=== PATIENT | male | born 1950 | race Caucasian/White ===

== ENCOUNTER → 2019-08-30 08:38 | Outpatient (CLI) | payer MEDICARE, BC, SELFPAY ==
--- NOTE | 2019-08-30 08:45 | NM_ITS ---
PROCEDURE: NM BONE SCAN WHOLE BODY CLINICAL INDICATION: PROSTATE TUMOR Prostate cancer COMPARISON: No exams were available for comparison TECHNIQUE: Dose: 26.9 mCi technetium MDP FINDINGS: There is normal distribution of the radiotracer throughout the skeletal system. There is slight increased activity in the proximal tibial area laterally on the left and in the lower cervical spine nonspecific. No other abnormalities are evident. IMPRESSION: No convincing evidence of metastatic disease. Dictated by: Krystian Reyes MD 09/01/2019 06:11 Electronically signed by Krystian Reyes MD in [place] 09/01/2019 06:11
--- NOTE | 2019-08-30 09:03 | HMH.ITSHM ---
Current Home Medications as stated by this patient Edwin Guzman or outbound telemarketing representative. []LISINOPRIL ATENOLOL LEVOTHYROXINE
--- NOTE | 2019-08-30 13:03 | XR_ITS ---
PROCEDURE: XR KNEE LT 3V CLINICAL INDICATION: LT KNEE HOT SPOT ON BONE SCAN COMPARISON: NM BONE SCAN WHOLE BODY from 08/30/2019 FINDINGS: No fracture or dislocation. No lytic or blastic change. There is normal mineralization. The joint spaces are well-preserved. No significant degenerative/arthritic changes. No erosive changes evident. Other findings:There is minimal cortical thickening along the proximal tibia laterally nonspecific IMPRESSION: No acute findings. Dictated by: Krystian Reyes MD 08/30/2019 16:07 Electronically signed by Krystian Reyes MD in [place] 08/30/2019 16:07
== END ==
PROVIDERS: PCP Internal Medicine Adolescent Medicine; Visit Provider Urology
DX: C61 Malignant neoplasm of prostate (principal)
CPT/HCPCS: 73562; 78306; A9503

== ENCOUNTER → 2019-09-01 14:53 | Outpatient (CLI) | payer MEDICARE, BC, SELFPAY ==
[2019-09-01 15:37] LABS: Blood Urea Nitrogen 13 mg/dL (7-18); Creatinine,Serum 1.03 mg/dL (0.70-1.30); Estimated Glomerular Filt Rate 72 ml/min (>60); GFR (African American) 87 ML/MIN (>60)
== END ==
PROVIDERS: Visit Provider Urology
DX: Z01.818 Encounter for other preprocedural examination (principal)
CPT/HCPCS: 36415; 82565; 84520

== ENCOUNTER → 2019-09-04 10:22 | Outpatient (CLI) | payer MEDICARE, BC, SELFPAY ==
--- NOTE | 2019-09-04 10:24 | CT_ITS ---
PROCEDURE: CT ABDOMEN PELVIS W CON CLINICAL INDICATION: MALIGNANT PROSTATE TUMOR Evaluate for metastatic disease COMPARISON: NM BONE SCAN WHOLE BODY from 08/30/2019 TECHNIQUE: IV Contrast: 75ML OPTIRAY 350 Oral Contrast 20ml Gastroview Axial images obtained with sagittal and coronal reformats. All CT scans at the facility use one or more dose reduction, viz: automated exposure control, ma/kV adjustment per patient size (including targeted exams where dose is matched to indication, i.e. head), or iterative reconstruction technique. FINDINGS: LOWER THORAX: No acute finding. Coronary artery calcifications are. There is mild ectasia of the ascending aorta at 4.2 cm. Abdomen and pelvis: The liver, gallbladder, spleen, adrenal glands, pancreas, and kidneys have an unremarkable appearance. There are few small retroperitoneal lymph nodes which are nonspecific. Unremarkable appendix. No intestinal obstruction or free air. No abdominal or pelvic mass. There is some minimal coarse calcification of the prostate centrally. Urinary bladder has an unremarkable appearance. There are mild degenerative changes of the spine. No bony blastic or lytic lesion evident. IMPRESSION: Essentially negative CT abdomen and pelvis. No convincing evidence of metastatic disease Dictated by: Krystian Reyes MD 09/04/2019 16:49 Electronically signed by Krystian Reyes MD in [place] 09/05/2019 09:53
== END ==
PROVIDERS: PCP Internal Medicine Adolescent Medicine; Visit Provider Urology
DX: C61 Malignant neoplasm of prostate (principal)
CPT/HCPCS: 74177; Q9967

== ENCOUNTER → 2020-07-30 10:00 | Outpatient (POV) | payer MEDICARE, BC, SELFPAY | PROVIDERS: Visit Provider Dermatology | DX: Z00.00 Encounter for general adult medical examination without abnormal findings (principal) ==

== ENCOUNTER → 2021-01-28 15:53 | Outpatient (POV) | payer MEDICARE, BC, SELFPAY | PROVIDERS: Visit Provider Dermatology | DX: Z00.00 Encounter for general adult medical examination without abnormal findings (principal) ==

== ENCOUNTER → 2021-06-06 10:09 | Outpatient (CLI) | payer MEDICARE, BC, SELFPAY ==
[2021-06-06 11:34] LABS: Chloride 102 mmol/L (98-107); Sodium 142 mmol/L (136-145)
[2021-06-06 11:35] LABS: Potassium 5.3 mmoL/L (3.5-5.1)
[2021-06-06 11:37] LABS: Alanine Aminotransferase 18 U/L (12-78); Albumin Level 4.4 g/dl (3.5-5.0); Albumin/Globulin Ratio 1.4 (1.1-1.8); Alkaline Phosphatase 93 U/L (38-126); Anion Gap 16.3 mEq/L (5-15); Aspartate Amino Transferase 26 U/L (17-59); Bilirubin,Total 0.5 mg/dl (0.2-1.3); Blood Urea Nitrogen 12 mg/dl (9-20); Carbon Dioxide 29 mmol/L (22.0-30.0); Cholesterol 169 mg/dl (140-200); Estimated Glomerular Filt Rate 95 ml/min (>60); GFR (African American) 115 ML/MIN (>60); Globulin 3.2 g/dL (1.3-3.2); Total Protein,Serum 7.6 g/dl (6.3-8.2); Triglycerides 236 mg/dl (30-150); VLDL Cholesterol 47 mg/dL (0-40)
[2021-06-06 11:38] LABS: Calcium 9.5 mg/dl (8.4-10.2); Chol/HDL Ratio 6.5 (1-3.5); Glucose 110 mg/dl (74-100); HDL Cholesterol 26 mg/dl (40-60)
[2021-06-06 11:40] LABS: Basophils # 0.1 K/mm3 (0-0.2); Basophils % 0.8 % (0.1-2.0); Eosinophils # 0.1 K/mm3 (0.0-0.4); Eosinophils % 1.8 % (0.1-12.0); Hematocrit 43.7 % (42.0-52.0); Hemoglobin 14.6 g/dL (14.1-18.0); Lymphocytes # 1.6 K/mm3 (0.7-4.5); Lymphocytes % 21.8 % (10-50); Mean Corpuscular HGB Conc 33.3 g/dL (31.8-35.4); Mean Corpuscular Hemoglobin 31.7 pg (27.0-31.2); Mean Corpuscular Volume 95.1 fl (80-94); Mean Platelet Volume 8.1 fl (7.4-10.4); Monocytes # 0.5 K/mm3 (0.1-1.0); Neutrophils # 4.9 K/mm3 (1.8-7.8); Neutrophils % 68.7 % (37.0-80.0); Platelet Count 258 K/mm3 (142-424); Red Blood Count 4.59 M/mm3 (4.60-6.20); White Blood Count 7.2 K/mm3 (4.8-10.8)
[2021-06-06 11:50] LABS: Direct LDL Cholesterol 100.95 mg/dL (100-129)
[2021-06-06 12:08] LABS: Thyroid Stimulating Hormone 3.11 uIU/mL (0.465-4.68)
== END ==
PROVIDERS: Visit Provider Internal Medicine Adolescent Medicine
DX: I10 Essential (primary) hypertension (principal); E78.5 Hyperlipidemia, unspecified; E03.9 Hypothyroidism, unspecified
CPT/HCPCS: 36415; 80053; 80061; 84443; 85025

== ENCOUNTER → 2023-07-09 07:02 | Outpatient (CLI) | payer MEDICARE, BC, SELFPAY ==
[2023-07-09 08:21] LABS: Chloride 106 mmol/L (98-107); Potassium 4.3 mmoL/L (3.5-5.1); Sodium 139 mmol/L (136-145)
[2023-07-09 08:23] LABS: Bilirubin,Unconjugated 0.3 mg/dL (0.0-1.1); Blood Urea Nitrogen 15 mg/dl (9-20); Estimated Glomerular Filt Rate 95 ml/min (>60); GFR (African American) 115 ML/MIN (>60)
[2023-07-09 08:24] LABS: Alanine Aminotransferase 40 U/L (12-78); Albumin Level 4.1 g/dl (3.5-5.0); Alkaline Phosphatase 69 U/L (38-126); Anion Gap 11.3 mEq/L (5-15); Aspartate Amino Transferase 42 U/L (17-59); Bilirubin,Direct 0.1 mg/dl (0.0-0.4); Bilirubin,Indirect 0.4 mg/dL (0.0-0.9); Bilirubin,Total 0.5 mg/dl (0.2-1.3); Calcium 8.8 mg/dl (8.4-10.2); Carbon Dioxide 26 mmol/L (22.0-30.0); Chol/HDL Ratio 6.2 (1-3.5); Cholesterol 173 mg/dl (140-200); Glucose 107 mg/dl (74-100); HDL Cholesterol 28 mg/dl (40-60); Total Protein,Serum 6.9 g/dl (6.3-8.2); Triglycerides 173 mg/dl (30-150); VLDL Cholesterol 35 mg/dL (0-40)
[2023-07-09 08:35] LABS: Direct LDL Cholesterol 103.97 mg/dL (100-129)
[2023-07-09 08:55] LABS: Basophils # 0.1 K/mm3 (0-0.2); Basophils % 1.9 % (0.1-2.0); Eosinophils # 0.3 K/mm3 (0.0-0.4); Eosinophils % 4.8 % (0.1-12.0); Hematocrit 41.5 % (42.0-52.0); Hemoglobin 14.2 g/dL (14.1-18.0); Lymphocytes % 36.7 % (10-50); Mean Corpuscular HGB Conc 34.1 g/dL (31.8-35.4); Mean Corpuscular Hemoglobin 34.3 pg (27.0-31.2); Mean Corpuscular Volume 100.6 fl (80-94); Mean Platelet Volume 9.1 fl (7.4-10.4); Monocytes # 0.3 K/mm3 (0.1-1.0); Monocytes % 6.3 % (1.7-9.3); Neutrophils # 2.7 K/mm3 (1.8-7.8); Neutrophils % 50.2 % (37.0-80.0); Platelet Count 220 K/mm3 (142-424); Red Blood Count 4.13 M/mm3 (4.60-6.20); White Blood Count 5.4 K/mm3 (4.8-10.8)
== END ==
PROVIDERS: PCP Internal Medicine Adolescent Medicine; Visit Provider Internal Medicine Interventional Cardiology
DX: E78.00 Pure hypercholesterolemia, unspecified (principal); I10 Essential (primary) hypertension
CPT/HCPCS: 36415; 80048; 80061; 80076; 85025

== ENCOUNTER → 2023-08-10 08:19 | Outpatient (CLI) | payer MEDICARE, BC, SELFPAY ==
[2023-08-10 09:10] LABS: Basophils # 0.1 K/mm3 (0-0.2); Basophils % 0.9 % (0.1-2.0); Eosinophils # 0.2 K/mm3 (0.0-0.4); Eosinophils % 2.9 % (0.1-12.0); Hematocrit 43.8 % (42.0-52.0); Hemoglobin 15.1 g/dL (14.1-18.0); Lymphocytes # 2.3 K/mm3 (0.7-4.5); Lymphocytes % 30.6 % (10-50); Mean Corpuscular HGB Conc 34.5 g/dL (31.8-35.4); Mean Corpuscular Hemoglobin 32.3 pg (27.0-31.2); Mean Corpuscular Volume 93.6 fl (80-94); Mean Platelet Volume 8.4 fl (7.4-10.4); Monocytes # 0.4 K/mm3 (0.1-1.0); Monocytes % 5.6 % (1.7-9.3); Neutrophils # 4.5 K/mm3 (1.8-7.8); Platelet Count 292 K/mm3 (142-424); Red Blood Count 4.68 M/mm3 (4.60-6.20); White Blood Count 7.4 K/mm3 (4.8-10.8)
[2023-08-10 09:54] LABS: Alanine Aminotransferase 33 U/L (12-78); Alkaline Phosphatase 84 U/L (38-126); Aspartate Amino Transferase 32 U/L (17-59); Bilirubin,Direct 0.1 mg/dl (0.0-0.4); Bilirubin,Indirect 0.4 mg/dL (0.0-0.9); Bilirubin,Total 0.5 mg/dl (0.2-1.3); Bilirubin,Unconjugated 0.4 mg/dL (0.0-1.1); Blood Urea Nitrogen 11 mg/dl (9-20); Calcium 8.9 mg/dl (8.4-10.2); Carbon Dioxide 29 mmol/L (22.0-30.0); Chloride 101 mmol/L (98-107); Chol/HDL Ratio 6.8 (1-3.5); Cholesterol 189 mg/dl (140-200); Estimated Glomerular Filt Rate 83 ml/min (>60); GFR (African American) 100 ML/MIN (>60); Glucose 107 mg/dl (74-100); HDL Cholesterol 28 mg/dl (40-60); Triglycerides 293 mg/dl (30-150); VLDL Cholesterol 59 mg/dL (0-40)
[2023-08-10 10:05] LABS: Direct LDL Cholesterol 112.95 mg/dL (100-129)
[2023-08-10 10:25] LABS: Sodium 136 mmol/L (136-145); Total Protein,Serum 7.1 g/dl (6.3-8.2)
== END ==
PROVIDERS: PCP Internal Medicine Adolescent Medicine; Visit Provider Internal Medicine Interventional Cardiology
DX: E78.00 Pure hypercholesterolemia, unspecified (principal)
CPT/HCPCS: 36415; 80048; 80061; 80076; 85025

== ENCOUNTER 2023-12-15 07:23 | Outpatient (CLI) | payer MEDICARE, BC, SELFPAY ==
[2023-12-15 07:53] LABS: Basophils # 0.1 K/mm3 (0-0.2); Basophils % 1.4 % (0.1-2.0); Eosinophils # 0.2 K/mm3 (0.0-0.4); Eosinophils % 2.6 % (0.1-12.0); Hemoglobin 14.4 g/dL (14.1-18.0); Lymphocytes # 2.5 K/mm3 (0.7-4.5); Mean Corpuscular HGB Conc 33.6 g/dL (31.8-35.4); Mean Corpuscular Hemoglobin 32.3 pg (27.0-31.2); Mean Corpuscular Volume 96.2 fl (80-94); Mean Platelet Volume 8.7 fl (7.4-10.4); Monocytes # 0.5 K/mm3 (0.1-1.0); Monocytes % 6.8 % (1.7-9.3); Neutrophils % 55.1 % (37.0-80.0); Platelet Count 230 K/mm3 (142-424); Red Blood Count 4.47 M/mm3 (4.60-6.20); Red Cell Distribution Width 13.8 % (11.5-17.5); White Blood Count 7.3 K/mm3 (4.8-10.8)
[2023-12-15 08:35] LABS: Chloride 109 mmol/L (98-107); Sodium 140 mmol/L (136-145)
[2023-12-15 08:37] LABS: Alanine Aminotransferase 36 U/L (12-78); Aspartate Amino Transferase 50 U/L (17-59); Bilirubin,Unconjugated 0.4 mg/dL (0.0-1.1); Blood Urea Nitrogen 11 mg/dl (9-20); Carbon Dioxide 25 mmol/L (22.0-30.0); Estimated Glomerular Filt Rate 110 ml/min (>60); GFR (African American) 133 ML/MIN (>60)
[2023-12-15 08:38] LABS: Albumin Level 4.1 g/dl (3.5-5.0); Alkaline Phosphatase 40 U/L (38-126); Bilirubin,Direct 0.5 mg/dl (0.0-0.4); Bilirubin,Indirect 0.5 mg/dL (0.0-0.9); Calcium 8.8 mg/dl (8.4-10.2); Cholesterol 91 mg/dl (140-200); Glucose 110 mg/dl (74-100); HDL Cholesterol 23 mg/dl (40-60); Total Protein,Serum 7.1 g/dl (6.3-8.2); Triglycerides 133 mg/dl (30-150); VLDL Cholesterol 27 mg/dL (0-40)
== END 2023-12-15 23:59 ==
LOC: LAB 07:24
PROVIDERS: PCP Internal Medicine Adolescent Medicine; Visit Provider Internal Medicine Interventional Cardiology
DX: I10 Essential (primary) hypertension (principal); E78.00 Pure hypercholesterolemia, unspecified
CPT/HCPCS: 36415; 80048; 80061; 80076; 85025

== ENCOUNTER 2023-12-31 19:26 | Observation (INO) | payer MEDICARE, BC, SELFPAY ==
[2023-12-31] VITALS (8 sets, daily range): BP systolic 135–188; BP diastolic 74–101; PULSE 47–71; RESP 16–20; TEMP 36.6–36.7; O2SAT 92–97; BMI 30.7
--- NOTE | 2023-12-31 19:27 | ECG_ITS ---
APPROVED REPORT Exam: Resting ECG HR:73 bpm ECG Measurements Heart Rate 73 AXES MS 193 P 1 QRSd 97 QRS -48 QT 385 T 13 QTc 411 Conclusion SINUS RHYTHM INCOMPLETE RIGHT BUNDLE BRANCH BLOCK [90+ ms QRS DURATION, TERMINAL R IN V1/V2, 40+ ms S IN I/aVL/V4/V5/V6] LEFT ANTERIOR FASCICULAR BLOCK [QRS AXIS <= -45, QR IN I, RS IN II] MODERATE VOLTAGE CRITERIA FOR LVH, CONSIDER NORMAL VARIANT [MEETS CRITERIA IN ONE OF: R(aVL), S(V1), R(V5), R(V5/V6)+S(V1)] NONSPECIFIC ST CHANGES ABNORMAL ECG Electronically signed by : RAQUEL KIRKLAND, 12/31/2023 20:48:12
--- NOTE | 2023-12-31 19:37 | XR_ITS ---
PROCEDURE INFORMATION: Exam: XR Chest Exam date and time: 12/31/2023 7:45 PM Age: 73 years old Clinical indication: Pain; Chest pressure; Additional info: Cp midline TECHNIQUE: Imaging protocol: Radiologic exam of the chest. Views: 1 view. COMPARISON: NM BONE SCAN WHOLE BODY 08/30/2019 1:31 PM FINDINGS: Lungs: Normal. Pleural spaces: Normal. No pleural effusion. No pneumothorax. Heart/Mediastinum: Normal. No cardiomegaly. Vasculature: Tortuous atherosclerotic thoracic aorta. Bones/joints: Unremarkable. IMPRESSION: No acute findings.
--- NOTE | 2023-12-31 19:38 | HMH.EDCP ---
Discharge Plan Disposition Patient Disposition: Home, Self-Care Clinical Impressions Clinical Impression: Chest pain, Non-ST elevation TX (NSTEMI) Discharge ED Provider: Nito Martinez HPI <Nito Martinez MD - Last Filed: 01/01/24 00:26> General Chief Complaint: Chest Pain Stated Complaint: CP Time Seen by Provider: 12/31/23 19:27 History of Present Illness HPI narrative: Patient is 73-year-old male past medical history of coronary artery disease, no cardiac stents, hypertension on atenolol and lisinopril who presents emergency department for evaluation of chest pain. Earlier this evening around 6 PM patient was in his backyard picking up sticks approximately 300-400 feet of ambulatory exertion when on his way back to the house and in the house he experienced substernal chest pain. No reports of it radiating or other acute complaints at this time. The chest pain was transient and has resolved prior to arrival however he presents here for continued evaluation given his cardiac history. Related Data Home Medications Medication Instructions Recorded Confirmed atenolol 50 mg tablet 25 mg PO DAILY htn 06/04/19 06/26/19 levothyroxine 100 mcg tablet 100 mg PO DAILY thyroid 06/04/19 06/26/19 lisinopril 10 mg tablet 10 mg PO DAILY htn 06/04/19 06/26/19 Allergies Allergy/AdvReac Type Severity Reaction Status Date / Time No Known Allergies Allergy Verified 06/26/19 10:14 PFS <Nito Martinez MD - Last Filed: 01/01/24 00:26> [facility] Disclaimer: The information contained in this section may have been updated after the patient was seen, as this information can be updated by other users. Social History Smoking Status: Unknown if ever smoked second hand exposure: No alcohol intake: never current occupational status: other Travel in the last 8 weeks: None household members: spouse housing: house current occupational exposures/hazards: No caffeine: No <Nito Martinez MD - Last Filed: 01/01/24 00:26> ROS Obtained: Yes Systems reviewed as appropriate & no additional complaints except as documented Physical Exam <Nito Martinez MD - Last Filed: 01/01/24 00:26> General General appearance: alert and in no apparent distress Head Head exam: atraumatic and normocephalic Eye Eye exam: Present PERRL ENT ENT exam: Present mucous membranes moist Neck Neck exam: Present normal inspection Chest Chest inspection: Present normal inspection and symmetric chest wall rise Respiratory Respiratory exam: Present normal lung sounds bilaterally; Absent respiratory distress Cardiovascular Cardiovascular exam: Present regular rate and normal rhythm Abdominal Exam Abdominal exam: Present soft; Absent tenderness Extremities Exam Extremities exam: Present normal inspection Neurological Exam Neurological exam: Present alert Psychiatric Psychiatric exam: Present normal affect Skin Skin exam: Present warm and dry HEART Score <Nito Martinez MD - Last Filed: 01/01/24 00:26> HEART Score HEART Score assessment performed?: Yes History (anamnesis): Moderately suspicious ECG: Normal Age: >65 years Risk factors: 1-2 risk factors Troponin: </= normal limit HEART Score: 4 <Amos Murray MD - Last Filed: 01/01/24 00:12> HEART Score HEART Score: 4 Critical Care <Nito Martinez MD - Last Filed: 01/01/24 00:26> Critical Care Time Critical Care Time: Yes Attestation: On 12/31/23, the high probability of a clinically significant, sudden or life threatening deterioration of the following system(s) required my full and direct attention, intervention and personal management. The time I documented below is in addition to time spent performing reported procedures but includes the following listed in this critical care notation. Total Time Total Critical Care Time: 35 Medical Decision Making <Nito Martinez MD - Last Filed: 01/01/24 00:26> [facility] Inquiry Pt receiving controlled substance: No Vital Signs Vital Signs: 12/31/23 19:31 12/31/23 20:01 12/31/23 21:20 Temperature 98.0 F Temperature Source Oral Pulse Rate 47 L 62 Pulse Rate [Right Brachial] 71 Respiratory Rate 16 Blood Pressure 150/74 H 140/81 Blood Pressure [Right Arm] 188/91 H Blood Pressure Mean 110 Blood Pressure Mean [Right Arm] 123 Blood Pressure Source [Right Arm] Automatic Cuff Blood Pressure Position [Right Arm] Sitting 02 Sat by Pulse Oximetry 97 97 95 Oxygen Delivery Method Room Air 12/31/23 21:30 12/31/23 22:00 12/31/23 22:30 Temperature Temperature Source Pulse Rate 58 L 59 L 59 L Pulse Rate [Right Brachial] Respiratory Rate Blood Pressure 135/83 160/92 H 142/84 H Blood Pressure [Right Arm] Blood Pressure Mean 100 114 103 Blood Pressure Mean [Right Arm] Blood Pressure Source [Right Arm] Blood Pressure Position [Right Arm] 02 Sat by Pulse Oximetry 94 L 96 97 Oxygen Delivery Method 12/31/23 23:00 12/31/23 23:47 Temperature 98 F Temperature Source Pulse Rate 57 L 64 Pulse Rate [Right Brachial] Respiratory Rate 20 Blood Pressure 154/87 H 166/101 H Blood Pressure [Right Arm] Blood Pressure Mean 109 Blood Pressure Mean [Right Arm] Blood Pressure Source [Right Arm] Blood Pressure Position [Right Arm] 02 Sat by Pulse Oximetry 95 Oxygen Delivery Method Room Air Lab Data Labs: Lab Results 12/31/23 19:48: WBC 7.4, RBC 4.37 L, Hgb 13.7 L, Hct 41.0 L, MCV 94.0, MCH 31.4 H, MCHC 33.4, RDW 13.5, Plt Count 227, MPV 8.9, Neut % (Auto) 51.0, Lymph % (Auto) 38.4, [place] % (Auto) 6.2, Eos % (Auto) 3.0, Baso % (Auto) 1.3, Neut # (Auto) 3.8, Lymph # (Auto) 2.9, [place] # (Auto) 0.5, Eos # (Auto) 0.2, Baso # (Auto) 0.1, Sodium 139, Potassium 3.5, Chloride 105, Carbon Dioxide 30, Anion Gap 7.5, BUN 10, Creatinine 0.90, Estimated Creat Clear 91, Estimated GFR 82, Est GFR ( Amer) 100, Glucose 141 H, Hemoglobin A1c 6.2 H, Calcium 9.1, Total Bilirubin 0.6, AST 35, ALT 27, Alkaline Phosphatase 77, Troponin I < 0.01, Total Protein 7.0, Albumin 4.0, Globulin 3.0, Albumin/Globulin Ratio 1.3, Free T4 1.13 12/31/23 22:45: Troponin I 0.38 H 12/31/23 19:48 12/31/23 19:48 Response Orders (Tests/Meds): ED MEDICATIONS Generic Name Dose Route Start Last Admin Trade Name Freq PRN Reason Stop Dose Admin Acetaminophen 650 mg 12/31/23 23:38 Acetaminophen 325mg Tab PO 01/30/24 23:37 Q4HP PRN Fever or Mild Pain (1-3) Aspirin 81 mg 01/01/24 09:00 Aspirin Ec 81mg Tablet PO 01/31/24 08:59 DAILY [facility], [facility] Clopidogrel Bisulfate 75 mg 01/01/24 09:00 Clopidogrel 300mg Tablet PO 01/31/24 08:59 DAILY [facility], [facility]1983 Enoxaparin Sodium 40 mg 01/01/24 09:00 Enoxaparin 40mg/0.4ml Syringe SQ 01/31/24 08:59 DAILY [facility], [facility]1983 Ondansetron HCl 4 mg 12/31/23 23:38 Ondansetron 4mg/2ml Vial IV 01/30/24 23:37 Q8HP PRN Nausea Discontinued Medications Generic Name Dose Route Start Last Admin Trade Name Freq PRN Reason Stop Dose Admin Aspirin 324 mg 12/31/23 19:37 12/31/23 19:52 Aspirin 81mg Chewable Tablet PO 12/31/23 19:38 Not Given ONCE ONE Aspirin 243 mg 12/31/23 19:51 12/31/23 19:53 Aspirin 81mg Chewable Tablet PO 12/31/23 19:52 243 mg ONCE ONE Administration Clopidogrel Bisulfate 300 mg 12/31/23 23:30 Clopidogrel 300mg Tablet PO 12/31/23 23:31 ONCE ONE ORDERS Category Date Time Status CXR --portable [XR chest portable] Stat Exams 12/31/23 19:37 Completed Basic Metabolic Panel AMLAB Lab 01/01/24 06:00 Ordered CBC w/Auto Diff [Complete Blood Count Auto Diff] Stat Lab 12/31/23 19:48 Completed CMP [Comprehensive Metabolic Panel] Stat Lab 12/31/23 19:48 Completed Complete Blood Count Auto Diff AMLAB Lab 01/01/24 06:00 Ordered Free T4 (Free Thyroxine) Routine Lab 12/31/23 19:48 Completed Hemoglobin A1C Timed Lab 12/31/23 19:48 Completed Lipid Panel [facility] Lab 01/01/24 06:00 Ordered Magnesium [facility] Lab 01/01/24 06:00 Ordered Thyroid Stimulating Hormone Routine Lab 12/31/23 19:48 Received Trop I [Troponin I] Stat Lab 12/31/23 19:48 Completed Troponin I Q3H Lab 12/31/23 22:45 Completed Troponin I Q3H Lab 01/01/24 01:45 Ordered CA echo doppler complete Routine Y 12/31/23 23:41 Ordered ECG Request Q3H Y 12/31/23 23:45 Ordered ECG Request Q3H Y 01/01/24 02:45 Ordered ECG Data Tracing #1: ECG Narrative: Independently interpreted by me, rate 73, rhythm is regular, axis is leftward deviated, no ST elevation in anatomical contiguous leads, QTc 411. Tracing #2: ECG Narrative: Independently interpreted by me, rate 64, rhythm is regular, axis is leftward deviated, T wave inversions in the Anterolateral leads, these are dynamic from previous EKG. MDM Narrative Medical Decision Narrative: In summary patient is a 73-year-old male with past medical history described above who presents emergency department for evaluation of exertional chest pain. Patient is hemodynamically stable nontoxic-appearing upon arrival, afebrile, no current chest pain. Differential includes exertional angina, ACS, among others. Workup will be conducted with hematologic labs, chest x-ray, EKG, serial troponins. Initial inventions include aspirin. Workup reviewed by me, hematologic labs are nonactionable, initial troponin undetectably low. Per repeat evaluation patient continued to be well-appearing. Serial troponin has significant delta, troponin 0.38. Repeat EKG shows dynamic T wave inversions in the anterolateral leads. Patient is not in significant chest pain at this time. The case was discussed with Dr. Hutson regarding management who recommends serial troponins, administration of Plavix and patient will undergo left heart cath in the morning. It is okay for the patient to eat breakfast. The case was discussed with hospital medicine regarding management and patient will be admitted to their service for continued evaluation at this time. <Amos Murray MD - Last Filed: 01/01/24 00:12> Vital Signs Vital Signs: 12/31/23 19:31 12/31/23 20:01 12/31/23 21:20 Temperature 98.0 F Temperature Source Oral Pulse Rate 47 L 62 Pulse Rate [Right Brachial] 71 Respiratory Rate 16 Blood Pressure 150/74 H 140/81 Blood Pressure [Right Arm] 188/91 H Blood Pressure Mean 110 Blood Pressure Mean [Right Arm] 123 Blood Pressure Source [Right Arm] Automatic Cuff Blood Pressure Position [Right Arm] Sitting 02 Sat by Pulse Oximetry 97 97 95 Oxygen Delivery Method Room Air 12/31/23 21:30 12/31/23 22:00 12/31/23 22:30 Temperature Temperature Source Pulse Rate 58 L 59 L 59 L Pulse Rate [Right Brachial] Respiratory Rate Blood Pressure 135/83 160/92 H 142/84 H Blood Pressure [Right Arm] Blood Pressure Mean 100 114 103 Blood Pressure Mean [Right Arm] Blood Pressure Source [Right Arm] Blood Pressure Position [Right Arm] 02 Sat by Pulse Oximetry 94 L 96 97 Oxygen Delivery Method 12/31/23 23:00 12/31/23 23:47 Temperature 98 F Temperature Source Pulse Rate 57 L 64 Pulse Rate [Right Brachial] Respiratory Rate 20 Blood Pressure 154/87 H 166/101 H Blood Pressure [Right Arm] Blood Pressure Mean 109 Blood Pressure Mean [Right Arm] Blood Pressure Source [Right Arm] Blood Pressure Position [Right Arm] 02 Sat by Pulse Oximetry 95 Oxygen Delivery Method Room Air Lab Data Labs: Lab Results 12/31/23 19:48: WBC 7.4, RBC 4.37 L, Hgb 13.7 L, Hct 41.0 L, MCV 94.0, MCH 31.4 H, MCHC 33.4, RDW 13.5, Plt Count 227, MPV 8.9, Neut % (Auto) 51.0, Lymph % (Auto) 38.4, [place] % (Auto) 6.2, Eos % (Auto) 3.0, Baso % (Auto) 1.3, Neut # (Auto) 3.8, Lymph # (Auto) 2.9, [place] # (Auto) 0.5, Eos # (Auto) 0.2, Baso # (Auto) 0.1, Sodium 139, Potassium 3.5, Chloride 105, Carbon Dioxide 30, Anion Gap 7.5, BUN 10, Creatinine 0.90, Estimated Creat Clear 91, Estimated GFR 82, Est GFR ( Amer) 100, Glucose 141 H, Hemoglobin A1c 6.2 H, Calcium 9.1, Total Bilirubin 0.6, AST 35, ALT 27, Alkaline Phosphatase 77, Troponin I < 0.01, Total Protein 7.0, Albumin 4.0, Globulin 3.0, Albumin/Globulin Ratio 1.3, Free T4 1.13 12/31/23 22:45: Troponin I 0.38 H Response Orders (Tests/Meds): ED MEDICATIONS Generic Name Dose Route Start Last Admin Trade Name Freq PRN Reason Stop Dose Admin Acetaminophen 650 mg 12/31/23 23:38 Acetaminophen 325mg Tab PO 01/30/24 23:37 Q4HP PRN Fever or Mild Pain (1-3) Aspirin 81 mg 01/01/24 09:00 Aspirin Ec 81mg Tablet PO 01/31/24 08:59 DAILY FOR[facility], [facility]1983 Clopidogrel Bisulfate 75 mg 01/01/24 09:00 Clopidogrel 300mg Tablet PO 01/31/24 08:59 DAILY [facility], [facility]1983 Enoxaparin Sodium 40 mg 01/01/24 09:00 Enoxaparin 40mg/0.4ml Syringe SQ 01/31/24 08:59 DAILY [facility], [facility]1983 Ondansetron HCl 4 mg 12/31/23 23:38 Ondansetron 4mg/2ml Vial IV 01/30/24 23:37 Q8HP PRN Nausea Discontinued Medications Generic Name Dose Route Start Last Admin Trade Name Freq PRN Reason Stop Dose Admin Aspirin 324 mg 12/31/23 19:37 12/31/23 19:52 Aspirin 81mg Chewable Tablet PO 12/31/23 19:38 Not Given ONCE ONE Aspirin 243 mg 12/31/23 19:51 12/31/23 19:53 Aspirin 81mg Chewable Tablet PO 12/31/23 19:52 243 mg ONCE ONE Administration Clopidogrel Bisulfate 300 mg 12/31/23 23:30 Clopidogrel 300mg Tablet PO 12/31/23 23:31 ONCE ONE ORDERS Category Date Time Status CXR --portable [XR chest portable] Stat Exams 12/31/23 19:37 Completed Basic Metabolic Panel [facility] Lab 01/01/24 06:00 Ordered CBC w/Auto Diff [Complete Blood Count Auto Diff] Stat Lab 12/31/23 19:48 Completed CMP [Comprehensive Metabolic Panel] Stat Lab 12/31/23 19:48 Completed Complete Blood Count Auto Diff AMLAB Lab 01/01/24 06:00 Ordered Free T4 (Free Thyroxine) Routine Lab 12/31/23 19:48 Completed Hemoglobin A1C Timed Lab 12/31/23 19:48 Completed Lipid Panel [facility]AB Lab 01/01/24 06:00 Ordered Magnesium AMLAB Lab 01/01/24 06:00 Ordered Thyroid Stimulating Hormone Routine Lab 12/31/23 19:48 Received Trop I [Troponin I] Stat Lab 12/31/23 19:48 Completed Troponin I Q3H Lab 12/31/23 22:45 Completed Troponin I Q3H Lab 04/13/24 01:45 Ordered CA echo doppler complete Routine Y 12/31/23 23:41 Ordered ECG Request Q3H Y 12/31/23 23:45 Ordered ECG Request Q3H Y 01/01/24 02:45 Ordered
[2023-12-31] MEDS: ASPIRIN 81MG CHEWABLE TABLET 243 MG PO (19:53)
[2023-12-31 19:57] LABS: Basophils # 0.1 K/mm3 (0-0.2); Basophils % 1.3 % (0.1-2.0); Eosinophils # 0.2 K/mm3 (0.0-0.4); Hemoglobin 13.7 g/dL (14.1-18.0); Lymphocytes # 2.9 K/mm3 (0.7-4.5); Lymphocytes % 38.4 % (10-50); Mean Corpuscular HGB Conc 33.4 g/dL (31.8-35.4); Mean Corpuscular Hemoglobin 31.4 pg (27.0-31.2); Mean Platelet Volume 8.9 fl (7.4-10.4); Monocytes # 0.5 K/mm3 (0.1-1.0); Monocytes % 6.2 % (1.7-9.3); Neutrophils # 3.8 K/mm3 (1.8-7.8); Platelet Count 227 K/mm3 (142-424); Red Blood Count 4.37 M/mm3 (4.60-6.20); Red Cell Distribution Width 13.5 % (11.5-17.5); White Blood Count 7.4 K/mm3 (4.8-10.8)
[2023-12-31 20:07] LABS: Chloride 105 mmol/L (98-107); Potassium 3.5 mmoL/L (3.5-5.1); Sodium 139 mmol/L (136-145)
[2023-12-31 20:10] LABS: Alanine Aminotransferase 27 U/L (12-78); Albumin/Globulin Ratio 1.3 (1.1-1.8); Alkaline Phosphatase 77 U/L (38-126); Anion Gap 7.5 mEq/L (5-15); Aspartate Amino Transferase 35 U/L (17-59); Bilirubin,Total 0.6 mg/dl (0.2-1.3); Blood Urea Nitrogen 10 mg/dl (9-20); Calcium 9.1 mg/dl (8.4-10.2); Carbon Dioxide 30 mmol/L (22.0-30.0); Creatinine Clearance Estimated 91 mL/min (50-200); Estimated Glomerular Filt Rate 82 ml/min (>60); GFR (African American) 100 ML/MIN (>60); Glucose 141 mg/dl (74-100)
[2023-12-31 20:36] LABS: Troponin I < 0.01 ng/ml (0.00-0.034)
[2023-12-31 23:17] LABS: Troponin I 0.38 ng/ml (0.00-0.034)
--- NOTE | 2023-12-31 23:26 | PC.NURSE ---
Dr Hutson paged
--- NOTE | 2023-12-31 23:28 | PC.NURSE ---
Dr. Hutson on phone with Dr. Martinez
--- NOTE | 2023-12-31 23:47 | PC.NURSE ---
report called to [facility]
--- NOTE | 2023-12-31 23:54 | PC.NURSE ---
pt arrived to floor via wheelchair @23:52
[2023-12-31 23:57] LABS: Hemoglobin A1C 6.2 % (4.0-6.0)
[2024-01-01] VITALS: BP 159/85; PULSE 62; RESP 16; TEMP 36.6; O2SAT 98
[2024-01-01 00:16] LABS: Free T4 (Free Thyroxine) 1.13 ng/dl (0.78-2.19)
[2024-01-01 00:31] LABS: Thyroid Stimulating Hormone 1.77 uIU/mL (0.465-4.68)
[2024-01-01] MEDS: CLOPIDOGREL 300MG TABLET 300 MG PO (00:40)
[2024-01-01 00:53] VITALS: BMI 31.2
--- NOTE | 2024-01-01 01:01 | EXP.HP ---
History of Present Illness *Admission Date: 12/31/23 *Reason for visit:: Chest pain *History of present illness: This is a 73-year-old male with a past medical history of CAD, hypertension and hypothyroidism who presents to the emergency for complaints of chest pain.? He was exerting self around 6 PM picking up sticks from the backyard for which she was ambulatory approximately 400 feet.? On his way back to his home he developed sudden substernal chest pain.? He denies any radiation to the pain.? Denies any diaphoresis or nausea.? The chest pain was transient in nature and was resolved at the time of arrival to the emergency department. OF note, patient has known vessel disease with 100% occlusion of one of his vessels that he is unsure of. He was not stented at the time of that finding. Emergency department workup? EKG with incomplete bundle branch block with dynamic T waves changes.? Troponin of 0.01 with uptrend to 0.38.? All other laboratory evaluations stable.? Given his troponin change, it was felt that he would benefit from cardiac workup.? He is admitted to the hospital service for further evaluation management. [facility] Disclaimer: The information contained in this section may have been updated after the patient was seen, as this information can be updated by other users. Medical History (Updated 01/01/24 @ 10:59 by Negro Ellis MD) Hypertension Surgical History (Updated 01/01/24 @ 00:51 by Clara Crisostomo RN) History of prostate surgery Family History (Updated 01/01/24 @ 00:51 by Clara Crisostomo RN) Other Family history of heart disease Social History (Updated 01/01/24 @ 00:51 by Clara Crisostomo RN) Smoking Status: Unknown if ever smoked second hand exposure: No alcohol intake: never current occupational status: other Travel in the last 8 weeks: None household members: spouse housing: house current occupational exposures/hazards: No caffeine: No Review of Systems Constitutional Constitutional: Reports as per HPI Eyes Eyes: Reports as per HPI ENT Ears, Nose, Mouth, and Throat: Reports as per HPI *Cardiovascular Cardiovascular: Reports as per HPI *Respiratory Respiratory: Reports as per HPI *Gastrointestinal Gastrointestinal: Reports as per HPI *Genitourinary Genitourinary: Reports as per HPI *Musculoskeletal Musculoskeletal: Reports as per HPI Integumentary/Breasts Skin/Breast: Reports as per HPI *Neurologic Neurologic: Reports as per HPI Psychiatric Psychiatric: Reports as per HPI Endocrine Endocrine: Reports as per HPI Hematologic/Lymphatic Hematologic/Lymphatic: Reports as per HPI Meds Home Medications and Allergies Home Medications Medication Instructions Recorded Confirmed Type atenolol 50 mg tablet 25 mg PO DAILY htn 06/04/19 01/01/24 History levothyroxine 100 mcg tablet 100 mcg PO DAILY thyroid 06/04/19 01/01/24 History aspirin 81 mg tablet 81 mg PO DAILY 01/01/24 01/01/24 History clopidogrel 75 mg tablet 75 mg PO HS 30 days #30 tabs 01/01/24 Rx isosorbide mononitrate 30 mg 30 mg PO DAILY 01/01/24 01/01/24 History tablet,extended release 24 hr lisinopril 20 mg tablet 20 mg PO DAILY 30 days #30 tabs 01/01/24 Rx rosuvastatin 20 mg tablet 20 mg PO DAILY 01/01/24 01/01/24 History New Prescriptions to Start Prescriptions: Negro Gil lisinopril Negro Ellis Allergies Allergy/AdvReac Type Severity Reaction Status Date / Time No Known Allergies Allergy Verified 06/26/19 10:14 Exam Data for Last 24 hours Vital signs and Labs for Last 24 Hours: Temp Pulse Resp BP Pulse Ox O2 Del Method 97.9 F 62 16 159/85 H 98 Room Air 01/01/24 00:00 01/01/24 00:00 01/01/24 00:00 01/01/24 00:00 01/01/24 00:00 01/01/24 00:00 Laboratory Results - last 24 hr 12/31/23 19:48: WBC 7.4, RBC 4.37 L, Hgb 13.7 L, Hct 41.0 L, MCV 94.0, MCH 31.4 H, MCHC 33.4, RDW 13.5, Plt Count 227, MPV 8.9, Neut % (Auto) 51.0, Lymph % (Auto) 38.4, [place] % (Auto) 6.2, Eos % (Auto) 3.0, Baso % (Auto) 1.3, Neut # (Auto) 3.8, Lymph # (Auto) 2.9, [place] # (Auto) 0.5, Eos # (Auto) 0.2, Baso # (Auto) 0.1, Sodium 139, Potassium 3.5, Chloride 105, Carbon Dioxide 30, Anion Gap 7.5, BUN 10, Creatinine 0.90, Estimated Creat Clear 91, Estimated GFR 82, Est GFR ( Amer) 100, Glucose 141 H, Hemoglobin A1c 6.2 H, Calcium 9.1, Total Bilirubin 0.6, AST 35, ALT 27, Alkaline Phosphatase 77, Troponin I < 0.01, Total Protein 7.0, Albumin 4.0, Globulin 3.0, Albumin/Globulin Ratio 1.3, TSH 1.77, Free T4 1.13 12/31/23 22:45: Troponin I 0.38 H I & O for Last 24 hours: Intake & Output 12/29/23 12/30/23 12/31/23 01/01/24 23:59 23:59 23:59 23:59 Weight 99.79 kg 101.196 kg Constitutional Constitutional: no acute distress *Routine HEENT Exam Head: Present normocephalic Eye: Present EOMI and PERRL ENT: Present mucous membranes moist *Routine Neck Exam Neck: Present supple; Absent lymphadenopathy *Routine Respiratory Exam Respiratory: Present CTA bilaterally *Routine Cardiovascular Exam Cardiovascular: Present RRR *Routine Abdominal Exam Abdominal: Present soft and normoactive bowel sounds; Absent tenderness *Routine Rectal Exam Rectal:: deferred *Routine Genitalia Exam Genitalia:: deferred *Routine Extremities Exam Extremities: Absent cyanosis, clubbing or edema *Routine Skin Exam Skin: Present warm; Absent rash *Routine Neurological Exam Neurological: Present alert and oriented X3 Assessment and Plan *Assessment and plan (1) Non-ST elevation [place] (NSTEMI): Status: Acute Category: Medical Code(s): I21.4 - Non-ST elevation (NSTEMI) myocardial infarction (2) Chest pain: Status: Acute Qualifiers: Chest pain type: chest pain due to myocardial ischemia Ischemic chest pain type: stable angina pectoris Qualified Code(s): I20.89 - Other forms of angina pectoris Category: Medical Code(s): R07.9 - Chest pain, unspecified (3) Hypothyroidism: Status: Acute Qualifiers: Hypothyroidism type: acquired Qualified Code(s): E03.9 - Hypothyroidism, unspecified Category: Medical Code(s): E03.9 - Hypothyroidism, unspecified (4) Hypertension: Status: Acute Qualifiers: Hypertension type: primary hypertension Qualified Code(s): I10 - Essential (primary) hypertension Category: Medical Code(s): I10 - Essential (primary) hypertension Plan Presented with episode of chest pain to the ER. Case discussed with ER physician, request admission for chest pain rule out and cardiology eval. Concern for NSTEMI. Medicine agreed to admit for further management. Problems addressed as follows: #NSTEMI History of occlusion that was not stentable with Dr. Kaminski in [place] (In July) Uptrending troponin from 0-0.38. Will continue to trend Dr. Hutson consulted, will cath late morning. N.p.o. after breakfast Received Plavix load in the emergency department, continue daily Continue daily aspirin Continue statin medication Echocardiogram in a.m. EKG as needed for pain #Hypertension Continue home atenolol and lisinopril #Hypothyroidism Continue levothyroxine Check TSH and free T4 DVT PPx Lovenox Full code Rounded on patient after nurse practitioner. Personally examined and interviewed patient. Agree with exam findings and care plan as documented.
[2024-01-01 04:00] VITALS: BP 128/79; PULSE 58; PULSE 60; RESP 17; TEMP 36.6; O2SAT 93; BMI 31.1
[2024-01-01 05:12] LABS: Basophils # 0.1 K/mm3 (0-0.2); Basophils % 1.2 % (0.1-2.0); Eosinophils # 0.2 K/mm3 (0.0-0.4); Eosinophils % 2.6 % (0.1-12.0); Hematocrit 40.5 % (42.0-52.0); Hemoglobin 13.2 g/dL (14.1-18.0); Lymphocytes # 2.9 K/mm3 (0.7-4.5); Lymphocytes % 34.8 % (10-50); Mean Corpuscular HGB Conc 32.6 g/dL (31.8-35.4); Mean Corpuscular Hemoglobin 31.2 pg (27.0-31.2); Mean Corpuscular Volume 95.8 fl (80-94); Mean Platelet Volume 8.8 fl (7.4-10.4); Monocytes # 0.5 K/mm3 (0.1-1.0); Monocytes % 6.4 % (1.7-9.3); Neutrophils # 4.6 K/mm3 (1.8-7.8); Platelet Count 225 K/mm3 (142-424); Red Blood Count 4.23 M/mm3 (4.60-6.20); Red Cell Distribution Width 13.6 % (11.5-17.5); White Blood Count 8.4 K/mm3 (4.8-10.8)
[2024-01-01 05:18] LABS: Chloride 112 mmol/L (98-107); Potassium 4.1 mmoL/L (3.5-5.1); Sodium 141 mmol/L (136-145)
[2024-01-01 05:21] LABS: Blood Urea Nitrogen 10 mg/dl (9-20); Creatinine Clearance Estimated 92 mL/min (50-200); Estimated Glomerular Filt Rate 94 ml/min (>60); GFR (African American) 114 ML/MIN (>60)
[2024-01-01 05:22] LABS: Anion Gap 7.1 mEq/L (5-15); Calcium 8.9 mg/dl (8.4-10.2); Carbon Dioxide 26 mmol/L (22.0-30.0); Chol/HDL Ratio 3.3 (1-3.5); Cholesterol 88 mg/dl (140-200); Glucose 109 mg/dl (74-100); HDL Cholesterol 27 mg/dl (40-60); Magnesium 2.1 mg/dl (1.6-2.3); Triglycerides 114 mg/dl (30-150); VLDL Cholesterol 23 mg/dL (0-40)
[2024-01-01 05:30] LABS: Troponin I 0.69 ng/ml (0.00-0.034)
[2024-01-01 05:33] LABS: Direct LDL Cholesterol 48.75 mg/dL (100-129)
--- NOTE | 2024-01-01 06:13 | PC.NURSE ---
Patient arrived to unit via wheelchair from ED at 23:52. Patient is alert and orient X4. Denies any pain at this time. Patient and family oriented to room and educated sales solutions representative light, tv remote and bed controller with a voice of understanding. Full assessment to follow.
[2024-01-01 07:49] VITALS: BP 169/88; PULSE 73; RESP 16; TEMP 36.6; O2SAT 96
[2024-01-01 08:00] VITALS: BP 169/88; PULSE 73; PULSE 80; RESP 16; TEMP 36.6; O2SAT 96
[2024-01-01] MEDS: ATENOLOL 50MG TABLET 25 MG PO (09:14)
[2024-01-01] MEDS: LISINOPRIL 10MG TABLET 20 MG PO (09:14)
[2024-01-01] MEDS: LEVOTHYROXINE 100MCG (0.1MG) TAB 100 MCG PO (09:14)
[2024-01-01] MEDS: ISOSORBIDE MONO 30MG TAB.ER.24H 30 MG PO (09:14)
[2024-01-01] MEDS: ASPIRIN EC 81MG TABLET 81 MG PO (09:14)
--- NOTE | 2024-01-01 10:57 | EXP.DC.SUM ---
General Admission date:: 12/31/23 Discharge date: 01/01/24 HPI HPI HPI: This is a 73-year-old male with a past medical history of CAD, hypertension and hypothyroidism who presents to the emergency for complaints of chest pain.? He was exerting self around 6 PM picking up sticks from the backyard for which she was ambulatory approximately 400 feet.? On his way back to his home he developed sudden substernal chest pain.? He denies any radiation to the pain.? Denies any diaphoresis or nausea.? The chest pain was transient in nature and was resolved at the time of arrival to the emergency department. OF note, patient has known vessel disease with 100% occlusion of one of his vessels that he is unsure of. He was not stented at the time of that finding. Emergency department workup? EKG with incomplete bundle branch block with dynamic T waves changes.? Troponin of 0.01 with uptrend to 0.38.? All other laboratory evaluations stable.? Given his troponin change, it was felt that he would benefit from cardiac workup.? He is admitted to the hospital service for further evaluation management. Hospital Course Hospital Course Hospital Course: 73-year-old male with history of CAD, hypothyroid, hypertension. Presented with episode of chest pain to the ER. Case discussed with ER physician, request admission for chest pain rule out and cardiology eval. Concern for NSTEMI. Medicine agreed to admit for further management. Obtain records from recent heart cath in July. Has obstructed LAD with collateralization. No lesions limiting flow necessitating or amenable to cathing. His pain is resolved, discussed case with cardiology, recommend stability to discharge home with outpatient follow-up. Will optimize medical management. Problems addressed as follows: #NSTEMI # CAD # Hypertension History of occlusion that was not stentable with Dr. Kaminski in [place] (In July). Serial troponins monitored overnight with plateau at 0.6. Chest pain resolved by arrival to the ER. Dr. Hutson was consulted, discussed case after obtaining catheter report from [place]. Given that patient has collateralization and there is nothing amenable to stenting at that time (July 2023), decision to proceed with medical management. No cath scheduled for this time. Stable to discharge home with optimization of medical therapy. Continue aspirin 81 mg daily, continue Plavix 75 mg daily for 1 month. Continue atenolol 25 mg daily. Continue isosorbide mononitrate 30 mg daily. Lisinopril increased to 20 mg daily due to hypertension. Continue Crestor 20 mg daily. Recommend close follow-up with PCP and health information provider in [place]. If unable to get in with his health information provider in [place] in the next 1 to 2 weeks, encouraged him to walk into cardiology clinic at [facility] as they will work him into their schedule and see him. Clinically stable to discharge. Family and patient expressed understanding and comfort with plan. #Hypothyroidism Continue levothyroxine. TSH well-controlled at 1.7 Extensive discussion with family about plan. Total time spent on discharge 35 minutes in counseling, documentation, chart review, and direct care with patient. Exam Data for Last 24 hours Vital signs and Labs for Last 24 Hours: Temp Pulse Resp BP Pulse Ox O2 Del Method 97.8 F 73 16 169/88 H 96 Room Air 01/01/24 08:00 01/01/24 08:00 01/01/24 08:00 01/01/24 08:00 01/01/24 08:00 01/01/24 08:00 Laboratory Results - last 24 hr 12/31/23 19:48: WBC 7.4, RBC 4.37 L, Hgb 13.7 L, Hct 41.0 L, MCV 94.0, MCH 31.4 H, MCHC 33.4, RDW 13.5, Plt Count 227, MPV 8.9, Neut % (Auto) 51.0, Lymph % (Auto) 38.4, [place] % (Auto) 6.2, Eos % (Auto) 3.0, Baso % (Auto) 1.3, Neut # (Auto) 3.8, Lymph # (Auto) 2.9, [place] # (Auto) 0.5, Eos # (Auto) 0.2, Baso # (Auto) 0.1, Sodium 139, Potassium 3.5, Chloride 105, Carbon Dioxide 30, Anion Gap 7.5, BUN 10, Creatinine 0.90, Estimated Creat Clear 91, Estimated GFR 82, Est GFR ( Amer) 100, Glucose 141 H, Hemoglobin A1c 6.2 H, Calcium 9.1, Total Bilirubin 0.6, AST 35, ALT 27, Alkaline Phosphatase 77, Troponin I < 0.01, Total Protein 7.0, Albumin 4.0, Globulin 3.0, Albumin/Globulin Ratio 1.3, TSH 1.77, Free T4 1.13 12/31/23 22:45: Troponin I 0.38 H 01/01/24 01:50: Troponin I 0.60 H 01/01/24 05:00: WBC 8.4, RBC 4.23 L, Hgb 13.2 L, Hct 40.5 L, MCV 95.8 H, MCH 31.2, MCHC 32.6, RDW 13.6, Plt Count 225, MPV 8.8, Neut % (Auto) 55.0, Lymph % (Auto) 34.8, [place] % (Auto) 6.4, Eos % (Auto) 2.6, Baso % (Auto) 1.2, Neut # (Auto) 4.6, Lymph # (Auto) 2.9, [place] # (Auto) 0.5, Eos # (Auto) 0.2, Baso # (Auto) 0.1, Sodium 141, Potassium 4.1, Chloride 112 H, Carbon Dioxide 26, Anion Gap 7.1, BUN 10, Creatinine 0.80, Estimated Creat Clear 92, Estimated GFR 94, Est GFR ( Amer) 114, Glucose 109 H D, Calcium 8.9, Magnesium 2.1, Troponin I 0.69 H, Triglycerides 114, Cholesterol 88 L, LDL Cholesterol Direct 48.75 L, VLDL Cholesterol 23, HDL Cholesterol 27 L, Cholesterol/HDL Ratio 3.3 I & O for Last 24 hours: Intake & Output 12/29/23 12/30/23 12/31/23 01/01/24 23:59 23:59 23:59 23:59 Intake Total 0 / 0 Balance 0 / 0 Weight 99.79 kg 100.743 kg Constitutional Constitutional: no acute distress, average body habitus, chronically ill appearing and cooperative *Routine HEENT Exam Head: Present normocephalic Eye: Present EOMI and PERRL ENT: Present mucous membranes moist *Routine Neck Exam Neck: Present supple; Absent lymphadenopathy *Routine Respiratory Exam Respiratory: Present CTA bilaterally; Absent rhonchi, wheezes or crackles *Routine Cardiovascular Exam Cardiovascular: Present RRR *Routine Abdominal Exam Abdominal: Present soft and normoactive bowel sounds; Absent tenderness *Routine Rectal Exam Patient deferred: visual exam *Routine Exam Patient deferred: penile exam *Routine Extremities Exam Extremities: Absent cyanosis, clubbing or edema *Routine Skin Exam Skin: Present warm; Absent rash *Routine Neurological Exam Neurological: Present alert, oriented X3 and moving all extremities; Absent altered mental status Results Data Completed and Pending Labs on day of discharge: Labs from last 24 hours 01/01/24 01/01/24 12/31/23 05:00 01:50 22:45 WBC 8.4 RBC 4.23 L Hgb 13.2 L Hct 40.5 L MCV 95.8 H MCH 31.2 MCHC 32.6 RDW 13.6 Plt Count 225 MPV 8.8 Neut % (Auto) 55.0 Lymph % (Auto) 34.8 [place] % (Auto) 6.4 Eos % (Auto) 2.6 Baso % (Auto) 1.2 Neut # (Auto) 4.6 Lymph # (Auto) 2.9 [place] # (Auto) 0.5 Eos # (Auto) 0.2 Baso # (Auto) 0.1 Sodium 141 Potassium 4.1 Chloride 112 H Carbon Dioxide 26 Anion Gap 7.1 BUN 10 Creatinine 0.80 Estimated Creat Clear 92 Estimated GFR 94 Est GFR ( Amer) 114 Glucose 109 H D Hemoglobin A1c Calcium 8.9 Magnesium 2.1 Total Bilirubin AST ALT Alkaline Phosphatase Troponin I 0.69 H 0.60 H 0.38 H Total Protein Albumin Globulin Albumin/Globulin Ratio Triglycerides 114 Cholesterol 88 L LDL Cholesterol Direct 48.75 L VLDL Cholesterol 23 HDL Cholesterol 27 L Cholesterol/HDL Ratio 3.3 TSH Free T4 12/31/23 19:48 WBC 7.4 RBC 4.37 L Hgb 13.7 L Hct 41.0 L MCV 94.0 MCH 31.4 H MCHC 33.4 RDW 13.5 Plt Count 227 MPV 8.9 Neut % (Auto) 51.0 Lymph % (Auto) 38.4 [place] % (Auto) 6.2 Eos % (Auto) 3.0 Baso % (Auto) 1.3 Neut # (Auto) 3.8 Lymph # (Auto) 2.9 [place] # (Auto) 0.5 Eos # (Auto) 0.2 Baso # (Auto) 0.1 Sodium 139 Potassium 3.5 Chloride 105 Carbon Dioxide 30 Anion Gap 7.5 BUN 10 Creatinine 0.90 Estimated Creat Clear 91 Estimated GFR 82 Est GFR ( Amer) 100 Glucose 141 H Hemoglobin A1c 6.2 H Calcium 9.1 Magnesium Total Bilirubin 0.6 AST 35 ALT 27 Alkaline Phosphatase 77 Troponin I < 0.01 Total Protein 7.0 Albumin 4.0 Globulin 3.0 Albumin/Globulin Ratio 1.3 Triglycerides Cholesterol LDL Cholesterol Direct VLDL Cholesterol HDL Cholesterol Cholesterol/HDL Ratio TSH 1.77 Free T4 1.13 DS: Diagnosis Discharge Diagnosis (1) Non-ST elevation [place] (NSTEMI): Status: Acute Code(s): I21.4 - Non-ST elevation (NSTEMI) myocardial infarction (2) Chest pain: Status: Acute Code(s): R07.9 - Chest pain, unspecified Qualifiers: Chest pain type: chest pain due to myocardial ischemia Ischemic chest pain type: stable angina pectoris Qualified Code(s): I20.89 - Other forms of angina pectoris (3) Hypothyroidism: Status: Acute Code(s): E03.9 - Hypothyroidism, unspecified Qualifiers: Hypothyroidism type: acquired Qualified Code(s): E03.9 - Hypothyroidism, unspecified (4) Hypertension: Status: Acute Code(s): I10 - Essential (primary) hypertension Qualifiers: Hypertension type: primary hypertension Qualified Code(s): I10 - Essential (primary) hypertension (5) CAD (coronary artery disease): Status: Acute Code(s): I25.10 - Atherosclerotic heart disease of [place] coronary artery without angina pectoris Meds Home Medications and Allergies Home Medications Medication Instructions Recorded Confirmed Type atenolol 50 mg tablet 25 mg PO DAILY htn 06/04/19 01/01/24 History levothyroxine 100 mcg tablet 100 mcg PO DAILY thyroid 06/04/19 01/01/24 History aspirin 81 mg tablet 81 mg PO DAILY 01/01/24 01/01/24 History clopidogrel 75 mg tablet 75 mg PO HS 30 days #30 tabs 01/01/24 Rx isosorbide mononitrate 30 mg 30 mg PO DAILY 01/01/24 01/01/24 History tablet,extended release 24 hr lisinopril 20 mg tablet 20 mg PO DAILY 30 days #30 tabs 01/01/24 Rx rosuvastatin 20 mg tablet 20 mg PO DAILY 01/01/24 01/01/24 History New Prescriptions to Start Prescriptions: Negro Gil lisinopril Negro Ellis Allergies Allergy/AdvReac Type Severity Reaction Status Date / Time No Known Allergies Allergy Verified 06/26/19 10:14 Discharge Plan Disposition Patient Disposition: Home, Self-Care Condition: Fair Follow up Plan Follow up with: Vic Kaminski MD [Referring] - Enter time for follow up (Please call to make a follow up appt. Wednesday.) López Hazel MD [Primary Care Provider] - 01/05/24 11:00 am Prescriptions/Medication Reconciliation: New lisinopril 20 mg tablet 20 mg PO DAILY 30 Days Qty: 30 0RF clopidogrel 75 mg Tablet 75 mg PO HS 30 Days Qty: 30 0RF Continued levothyroxine 100 MCG tablet 100 mcg PO DAILY atenolol 50 MG tablet 25 mg PO DAILY Patient Comments: TAKE 1 2 (ONE HALF) TABLET BY MOUTH ONCE DAILY isosorbide mononitrate 30 mg tablet extended release 24 hr 30 mg PO DAILY Patient Comments: TAKE 1 TABLET BY MOUTH ONCE DAILY aspirin 81 mg Tablet 81 mg PO DAILY rosuvastatin 20 mg tablet 20 mg PO DAILY Patient Comments: TAKE 1 TABLET BY MOUTH ONCE DAILY Discontinued lisinopril 10 MG tablet 10 mg PO DAILY Patient Comments: TAKE 1 TABLET BY MOUTH ONCE DAILY Problem Reconciliation Problems Reviewed?: Yes Patient Discharge Instructions ACTIVITY: Continue current activity DIET: continue same diet Patient Instructions: DI for Chest Pain Providers Primary Care Provider: López Hazel Admit Provider: Negro Ellis Attending Provider: Negro Ellis
[2024-01-01 12:00] VITALS: BP 120/72; PULSE 84; RESP 16; TEMP 36.6; O2SAT 97
--- NOTE | 2024-01-01 23:24 | ECG_ITS ---
APPROVED REPORT Exam: Resting ECG HR:64 bpm ECG Measurements Heart Rate 64 AXES KS 187 P 11 QRSd 102 QRS -48 QT 414 T -12 QTc 423 Conclusion SINUS RHYTHM PATTERN CONSISTENT WITH PULMONARY DISEASE INCOMPLETE RIGHT BUNDLE BRANCH BLOCK [90+ ms QRS DURATION, TERMINAL R IN V1/V2, 40+ ms S IN I/aVL/V4/V5/V6] LEFT ANTERIOR FASCICULAR BLOCK [QRS AXIS <= -45, QR IN I, RS IN II] MINIMAL VOLTAGE CRITERIA FOR LVH, CONSIDER NORMAL VARIANT [MEETS CRITERIA IN ONE OF: R(aVL), S(V1), R(V5), R(V5/V6)+S(V1)] MODERATE T-WAVE ABNORMALITY, CONSIDER ANTEROLATERAL ISCHEMIA [-0.1+ mV T-WAVE IN V3-V6] ABNORMAL ECG Electronically signed by : RAQUEL KIRKLAND, 01/01/2024 17:12:44
--- NOTE | 2024-01-03 13:20 | SW/DCPLANNER ---
Follow up phone call: I spoke w/ patient's and she has stated that patient is doing good at this time. stated that patient does have a follow up appointment w/ his Proposal Manager in [place] this week. No further questions/needs at this time.
== END 2024-01-01 12:55 | disposition home or self-care (01) ==
LOC: ER 22:52 → 2ND 23:41
PROVIDERS: Nurse Practitioner Acute Care; Admitting Provider Internal Medicine Adolescent Medicine; Emergency Provider Emergency Medicine; PCP Internal Medicine Adolescent Medicine; Visit Provider Internal Medicine Adolescent Medicine
DX: I21.4 Non-ST elevation (NSTEMI) myocardial infarction (principal); I25.118 Atherosclerotic heart disease of native coronary artery with other forms of angina pectoris; E03.9 Hypothyroidism, unspecified; I10 Essential (primary) hypertension; Z79.899 Other long term (current) drug therapy
CPT/HCPCS: 36415; 71045; 80048; 80053; 80061; 83036; 83735; 84439; 84443; 84484; 85025; 93005; 99291; G0378

== ENCOUNTER 2024-02-04 08:21 | Emergency (ER) | payer MEDICARE, BC, SELFPAY ==
[2024-02-04] VITALS (11 sets, daily range): BP systolic 102–168; BP diastolic 65–115; PULSE 71–133; RESP 10–20; TEMP 36.7–36.9; O2SAT 95–98; BMI 30.7
--- NOTE | 2024-02-04 08:22 | ECG_ITS ---
APPROVED REPORT Exam: Resting ECG HR:128 bpm ECG Measurements Heart Rate 128 AXES CA 192 P -27 QRSd 105 QRS -68 QT 293 T 75 QTc 369 Conclusion SINUS TACHYCARDIA PATTERN CONSISTENT WITH PULMONARY DISEASE LEFT ANTERIOR FASCICULAR BLOCK [QRS AXIS <= -45, QR IN I, RS IN II] MINIMAL ST DEPRESSION [0.025+ mV ST DEPRESSION] ABNORMAL ECG UNCONFIRMED REPORT Electronically signed by : JOSHUA AYON, 02/05/2024 06:03:06
--- NOTE | 2024-02-04 08:22 | HMH.EDGENADL ---
Discharge Plan Disposition Patient Disposition: Home, Self-Care Condition: Good Prescriptions Prescriptions: No Action levothyroxine 100 MCG tablet 100 mcg PO DAILY atenolol 50 MG tablet 25 mg PO DAILY Patient Comments: TAKE 1 2 (ONE HALF) TABLET BY MOUTH ONCE DAILY isosorbide mononitrate 30 mg tablet extended release 24 hr 30 mg PO DAILY Patient Comments: TAKE 1 TABLET BY MOUTH ONCE DAILY aspirin 81 mg Tablet 81 mg PO DAILY rosuvastatin 20 mg tablet 20 mg PO DAILY Patient Comments: TAKE 1 TABLET BY MOUTH ONCE DAILY lisinopril 20 mg tablet 20 mg PO DAILY 30 Days Qty: 30 0RF clopidogrel 75 mg Tablet 75 mg PO HS 30 Days Qty: 30 0RF Referrals Follow up/Referrals: López Hazel MD [Primary Care Provider] - See instructions Activity Restrictions/Add. Instructions Additional Instructions/Restrictions: As we discussed, your workup today is reassuring, your heart enzymes were both undetectable, I do not see any evidence of infection, your CT scan showed a 4.7 cm ascending aortic aneurysm without dissection which had previously been demonstrated on earlier scans, per what you had mentioned to me regarding workup at [facility]. Looking through the discharge summary from your recent admission to the hospital here, the community pharmacist wanted you to stay on the Plavix for just 1 month, which has since gone by, so I would recommend you continue to stay off that medication. I recommend you follow-up with your community pharmacist as well as a thoracic surgeon for the aortic aneurysm. Please return with any new or worsening symptoms. Clinical Impressions Clinical Impression: Chest pain Qualifiers: Chest pain type: chest pain due to myocardial ischemia Ischemic chest pain type: stable angina pectoris Qualified Code(s): I20.89 - Other forms of angina pectoris Discharge ED Provider: Wojciech Townsend General Adult HPI General Chief complaint: Chest Pain Stated complaint: Chest Pain Time Seen by Provider: 02/04/24 08:22 History of Present Illness HPI narrative: The patient reports experiencing light chest pain this morning around 7:30 AM, which has since resolved. The pain is described as sharp and lingering, less intense than a previous episode in December. He notes that he has not eaten and has burped a few times, but denies shortness of breath or palpitations. The pain lasted about half an hour. He also mentions a persistent tickle cough with some drainage for over a week but denies lightheadedness or nausea. 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 Post-heart attack, he was prescribed various medications, including Plavix, which he stopped taking last week on the advice of a doctor. His current medications include levothyroxine, isosorbide (recently increased), lisinopril (increased from 10 mg to 20 mg), atorvastatin, and he has recently finished his course of Plavix. He took two chewable baby aspirins this morning in response to his chest pain. He reports elevated blood pressure today with readings of 153/99 and an unusually high heart rate of 133, which he checked after experiencing the chest pain. He has no history of lung conditions and does not smoke. Please note that above description of symptoms, in this electronic medical record under categorization of recalled from ER triage doctor by RN are reflective of an initial nursing assessment, however, is not reflective of my full history and physical exam that was personally taken and clarified. Consequentially, this preceding description of symptoms, which may include the patient's categorized chief complaint in the EMR, do not reflect my personal clinical impression, and the ultimate description of history of present illness and patient stated complaints should be deferred to this section of the note. Unless stated otherwise or congruent with this section of the note, additional signs, symptoms, or incongruence should be interpreted as inaccurate with my clinical impression. Related Data Home Medications Medication Instructions Recorded Confirmed atenolol 50 mg tablet 25 mg PO DAILY htn 06/04/19 01/01/24 levothyroxine 100 mcg tablet 100 mcg PO DAILY thyroid 06/04/19 01/01/24 aspirin 81 mg tablet 81 mg PO DAILY 01/01/24 01/01/24 isosorbide mononitrate 30 mg 30 mg PO DAILY 01/01/24 01/01/24 tablet,extended release 24 hr rosuvastatin 20 mg tablet 20 mg PO DAILY 01/01/24 01/01/24 Previous Rx's Medication Instructions Recorded clopidogrel 75 mg tablet 75 mg PO HS 30 days #30 tabs 01/01/24 lisinopril 20 mg tablet 20 mg PO DAILY 30 days #30 tabs 01/01/24 Allergies Allergy/AdvReac Type Severity Reaction Status Date / Time No Known Allergies Allergy Verified 06/26/19 10:14 [facility] Disclaimer: The information contained in this section may have been updated after the patient was seen, as this information can be updated by other users. Medical History (Updated 02/04/24 @ 12:41 by Wojciech Townsend MD) Hypertension Surgical History (Updated 01/01/24 @ 00:51 by Clara Crisostomo RN) History of prostate surgery Family History (Updated 01/01/24 @ 00:51 by Clara Crisostomo RN) Other Family history of heart disease Social History (Updated 01/01/24 @ 00:51 by Clara Crisostomo RN) Smoking Status: Never smoker second hand exposure: No alcohol intake: never current occupational status: other Travel in the last 8 weeks: None household members: spouse housing: house current occupational exposures/hazards: No caffeine: No ROS Obtained: Yes other As per HPI Physical Exam General General appearance: alert and in no apparent distress Head Head exam: atraumatic and normocephalic Eye Eye exam: Present normal appearance Neck Neck exam: Present normal inspection Chest Chest inspection: Present normal inspection and symmetric chest wall rise Respiratory Respiratory exam: Present normal lung sounds bilaterally; Absent respiratory distress Cardiovascular Cardiovascular exam: Present normal rhythm and tachycardia Abdominal Exam Abdominal exam: Present soft Neurological Exam Neurological exam: Present alert and oriented X3 Psychiatric Psychiatric exam: Present normal affect and normal mood Skin Skin exam: Present warm and dry Other Other exam information: Nontoxic-appearing, equal pulses in bilateral upper extremities, during interview patient converted to sinus rhythm with occasional premature ventricular complexes Medical Decision Making Medical Records Medical records reviewed: Yes I reviewed the patient's medical records. Olegario Inquiry Pt receiving controlled substance: No Vital Signs: 02/04/24 08:21 02/04/24 08:45 02/04/24 09:01 Temperature 98.5 F Temperature Source Oral Pulse Rate 129 H 73 Pulse Rate [Right] 133 H Respiratory Rate 20 17 16 Blood Pressure 150/96 H 145/65 H Blood Pressure [Right Arm] 168/115 H Blood Pressure Mean Blood Pressure Mean [Right Arm] 132 Blood Pressure Source Blood Pressure Source [Right Arm] Automatic Cuff Blood Pressure Position 02 Sat by Pulse Oximetry 98 96 95 Oxygen Delivery Method Room Air Room Air 02/04/24 09:31 02/04/24 10:00 02/04/24 10:30 Temperature Temperature Source Pulse Rate 86 76 71 Pulse Rate [Right] Respiratory Rate 16 14 12 Blood Pressure 125/74 104/65 L 106/67 L Blood Pressure [Right Arm] Blood Pressure Mean 78 Blood Pressure Mean [Right Arm] Blood Pressure Source Blood Pressure Source [Right Arm] Blood Pressure Position 02 Sat by Pulse Oximetry 96 98 95 Oxygen Delivery Method Room Air Room Air 02/04/24 11:05 02/04/24 11:30 02/04/24 12:00 Temperature Temperature Source Pulse Rate 73 73 72 Pulse Rate [Right] Respiratory Rate 15 13 18 Blood Pressure 113/71 102/69 L 107/72 L Blood Pressure [Right Arm] Blood Pressure Mean Blood Pressure Mean [Right Arm] Blood Pressure Source Blood Pressure Source [Right Arm] Blood Pressure Position 02 Sat by Pulse Oximetry 96 96 96 Oxygen Delivery Method Room Air Room Air Room Air 02/04/24 12:30 02/04/24 12:45 Temperature 98.0 F Temperature Source Oral Pulse Rate 74 74 Pulse Rate [Right] Respiratory Rate 10 L 10 L Blood Pressure 105/74 L 105/74 L Blood Pressure [Right Arm] Blood Pressure Mean Blood Pressure Mean [Right Arm] Blood Pressure Source Automatic Cuff Blood Pressure Source [Right Arm] Blood Pressure Position Sitting 02 Sat by Pulse Oximetry 96 Oxygen Delivery Method Room Air Room Air Lab Data Lab Results 02/04/24 08:33: WBC 7.3, RBC 4.37 L, Hgb 13.8 L, Hct 41.7 L, MCV 95.4 H, MCH 31.6 H, MCHC 33.1, RDW 13.8, Plt Count 227, MPV 8.4, Neut % (Auto) 49.7, Lymph % (Auto) 41.7, [place] % (Auto) 6.8, Eos % (Auto) 0.6, Baso % (Auto) 1.3, Neut # (Auto) 3.6, Lymph # (Auto) 3.0, [place] # (Auto) 0.5, Eos # (Auto) 0.0, Baso # (Auto) 0.1, Sodium 137, Potassium 4.3, Chloride 105, Carbon Dioxide 24, Anion Gap 12.3, BUN 14, Creatinine 1.00, Estimated Creat Clear 91, Estimated GFR 73, Est GFR ( Amer) 88, Glucose 132 H, Calcium 8.9, Magnesium 1.9, Total Bilirubin 0.7, AST 33, ALT 33, Alkaline Phosphatase 90, Troponin I < 0.01, NT-Pro-B Natriuret Pep 130 H, Total Protein 7.4, Albumin 4.1, Globulin 3.3 H, Albumin/Globulin Ratio 1.2, TSH 1.96, Free T4 1.07 02/04/24 11:05: Troponin I < 0.01 02/04/24 08:33 02/04/24 08:33 Orders (Tests/Meds): ED MEDICATIONS Discontinued Medications Generic Name Dose Route Start Last Admin Trade Name Gee PRN Reason Stop Dose Admin Aspirin 325 mg 02/04/24 08:26 02/04/24 08:56 Aspirin 325mg Tablet PO 02/04/24 08:27 Not Given ONCE ONE Aspirin 261 mg 02/04/24 08:55 02/04/24 09:06 Aspirin 81mg Chewable Tablet PO 02/04/24 08:56 Not Given ONCE ONE Aspirin 162 mg 02/04/24 09:06 02/04/24 09:07 Aspirin 81mg Chewable Tablet PO 02/04/24 09:07 162 mg ONCE ONE Administration Iopamidol 100 ml 02/04/24 10:21 02/04/24 10:22 Iopamidol-370 (76%);100ml Bottle IV 02/04/24 10:22 100 ml ONCE ONE Administration Sodium Chloride 50 ml 02/04/24 10:21 02/04/24 10:21 0.9 % Sodium Chloride 50 Ml Vial IV 02/04/24 10:22 50 ml ONCE ONE Administration Sodium Chloride 10 ml 02/04/24 10:21 02/04/24 10:22 Sodium Chloride 0.9% 10ml Syr (Rad Only) IV 02/04/24 10:22 10 ml ONCE ONE Administration ORDERS Category Date Time Status CTA Chest [CT angio chest PE protocol] Stat Cat Scan 02/04/24 08:29 Completed XR chest portable Stat Exams 02/04/24 08:25 Completed BNP [NT Pro Brain Natriuretic Pep.] Stat Lab 02/04/24 08:33 Completed CBC w/Auto Diff [Complete Blood Count Auto Diff] Stat Lab 02/04/24 08:33 Completed CMP [Comprehensive Metabolic Panel] Stat Lab 02/04/24 08:33 Completed Free T4 (Free Thyroxine) Stat Lab 02/04/24 08:33 Completed MAG [Magnesium] Stat Lab 02/04/24 08:33 Completed TSH [Thyroid Stimulating Hormone] Stat Lab 02/04/24 08:33 Completed Troponin I Q3H Lab 02/04/24 08:33 Completed Troponin I Q3H Lab 02/04/24 11:05 Completed HEART Score History (anamnesis): Moderately suspicious ECG: Non-specific disturbance Age: >65 years Risk factors: Atherosclerosis history Troponin: </= normal limit HEART Score: 6 Medical Decision Narrative: Patient with history and exam per above presenting for evaluation of chest pain, dysrhythmia Diagnoses considered include ACS, aortic dissection, pericarditis, PE, pneumothorax, pneumonia, GERD, costochondritis, referred pain ED workup and treatment included: ED MEDICATIONS Discontinued Medications Generic Name Dose Route Start Last Admin Trade Name Freq PRN Reason Stop Dose Admin Aspirin 325 mg 02/04/24 08:26 02/04/24 08:56 Aspirin 325mg Tablet PO 02/04/24 08:27 Not Given ONCE ONE Aspirin 261 mg 02/04/24 08:55 02/04/24 09:06 Aspirin 81mg Chewable Tablet PO 02/04/24 08:56 Not Given ONCE ONE Aspirin 162 mg 02/04/24 09:06 02/04/24 09:07 Aspirin 81mg Chewable Tablet PO 02/04/24 09:07 162 mg ONCE ONE Administration Iopamidol 100 ml 02/04/24 10:21 02/04/24 10:22 Iopamidol-370 (76%);100ml Bottle IV 02/04/24 10:22 100 ml ONCE ONE Administration Sodium Chloride 50 ml 02/04/24 10:21 02/04/24 10:21 0.9 % Sodium Chloride 50 Ml Vial IV 02/04/24 10:22 50 ml ONCE ONE Administration Sodium Chloride 10 ml 02/04/24 10:21 02/04/24 10:22 Sodium Chloride 0.9% 10ml Syr (Rad Only) IV 02/04/24 10:22 10 ml ONCE ONE Administration ORDERS Category Date Time Status CTA Chest [CT angio chest PE protocol] Stat Cat Scan 02/04/24 08:29 Completed XR chest portable Stat Exams 02/04/24 08:25 Completed BNP [NT Pro Brain Natriuretic Pep.] Stat Lab 02/04/24 08:33 Completed CBC w/Auto Diff [Complete Blood Count Auto Diff] Stat Lab 02/04/24 08:33 Completed CMP [Comprehensive Metabolic Panel] Stat Lab 02/04/24 08:33 Completed Free T4 (Free Thyroxine) Stat Lab 02/04/24 08:33 Completed MAG [Magnesium] Stat Lab 02/04/24 08:33 Completed TSH [Thyroid Stimulating Hormone] Stat Lab 02/04/24 08:33 Completed Troponin I Q3H Lab 02/04/24 08:33 Completed Troponin I Q3H Lab 02/04/24 11:05 Completed Labs were independently interpreted by me, significant for troponins within normal limits x 2, BNP 130, thyroid studies within normal limits, no leukocytosis Imaging was independently visualized and interpreted by me, significant for known, redemonstrated aortic aneurysm, without dissection Serial EKGs were independently visualized and interpreted by me, significant for sinus rhythm, frequent PVCs, no acute ST elevation. Upon serial evaluations at bedside, on continuous telemetry, PVCs have resolved. Upon repeat evaluation, patient has complete resolution of symptoms. Unclear precipitant of preceding arrhythmia although patient has had no recent medication changes. After shared decision making, patient elects to be discharged at this time, after discussion of my clinical impression with family and patient. Will follow-up closely with cardiology, primary care provider, and return with any new or worsening symptoms. Return precautions given. Critical Care Critical Care Time Critical Care Time: No
--- NOTE | 2024-02-04 08:25 | XR_ITS ---
FINAL REPORT CLINICAL HISTORY: chest pain COMPARISON: 12/31/2023 FINDINGS: SINGLE-VIEW CHEST There is cardiomegaly. The mediastinum is normal. There are mild right base opacities, favor atelectasis. There is no pneumothorax. IMPRESSION: Right base atelectasis. Reviewed, Interpreted and Dictated by Franco Acharya III, MD Transcribed by Sydney Lewis Authenticated and . [facility]
--- NOTE | 2024-02-04 08:29 | CT_ITS ---
FINAL REPORT TECHNIQUE: Then section axial CT images of the chest were obtained with contrast. Three-D reformatted images were also obtained.This study was performed with techniques to keep radiation doses as low as reasonably achievable (ALARA). Individualized dose reduction techniques using automated exposure control or adjustment of mA and/or kV according to the patient''s size were employed. CLINICAL HISTORY: tachycardia, chest pain, recent cath COMPARISON: None FINDINGS: There is no evidence of pulmonary embolism. Cardiomegaly is present. There is an ascending aortic aneurysm measuring 4.7 cm in size, without evidence of a dissection. There is no evidence of mediastinal or hilar mass or adenopathy. There is no evidence of pulmonary mass or suspicious nodule. Mild bibasilar atelectasis is present. There is a right upper lobe calcified granuloma. Limited images of the upper abdomen are unremarkable. IMPRESSION: No evidence of pulmonary embolism. 4.7 cm ascending aortic aneurysm without evidence of a dissection. Mild bibasilar atelectasis. Reviewed, Interpreted and Dictated by Franco Acharya III, MD Transcribed by Theresa Arambula Authenticated and [facility]
--- NOTE | 2024-02-04 08:35 | PC.NURSE ---
Dr. Townsend at bedside
[2024-02-04 08:52] LABS: Basophils # 0.1 K/mm3 (0-0.2); Basophils % 1.3 % (0.1-2.0); Eosinophils % 0.6 % (0.1-12.0); Hematocrit 41.7 % (42.0-52.0); Hemoglobin 13.8 g/dL (14.1-18.0); Lymphocytes % 41.7 % (10-50); Mean Corpuscular HGB Conc 33.1 g/dL (31.8-35.4); Mean Corpuscular Hemoglobin 31.6 pg (27.0-31.2); Mean Corpuscular Volume 95.4 fl (80-94); Mean Platelet Volume 8.4 fl (7.4-10.4); Monocytes # 0.5 K/mm3 (0.1-1.0); Monocytes % 6.8 % (1.7-9.3); Neutrophils # 3.6 K/mm3 (1.8-7.8); Neutrophils % 49.7 % (37.0-80.0); Platelet Count 227 K/mm3 (142-424); Red Blood Count 4.37 M/mm3 (4.60-6.20); Red Cell Distribution Width 13.8 % (11.5-17.5); White Blood Count 7.3 K/mm3 (4.8-10.8)
--- NOTE | 2024-02-04 08:55 | ECG_ITS ---
APPROVED REPORT Exam: Resting ECG HR:75 bpm ECG Measurements Heart Rate 75 AXES [place] 170 P 5 QRSd 101 QRS -54 QT 363 T 12 QTc 392 Conclusion SINUS RHYTHM WITH FREQUENT VENTRICULAR PREMATURE COMPLEXES PATTERN CONSISTENT WITH PULMONARY DISEASE LEFT ANTERIOR FASCICULAR BLOCK [QRS AXIS <= -45, QR IN I, RS IN II] ABNORMAL ECG UNCONFIRMED REPORT Electronically signed by : JOSHUA AYON, 02/05/2024 06:02:55
[2024-02-04] MEDS: ASPIRIN 81MG CHEWABLE TABLET 162 MG PO (09:07)
[2024-02-04 09:43] LABS: NT Pro Brain Natriuretic Pep. 130 pg/mL (0-125)
[2024-02-04 09:44] LABS: Troponin I < 0.01 ng/ml (0.00-0.034)
--- NOTE | 2024-02-04 09:55 | PC.NURSE ---
pt to CT scan
[2024-02-04 10:09] LABS: Chloride 105 mmol/L (98-107)
[2024-02-04 10:10] LABS: Potassium 4.3 mmoL/L (3.5-5.1); Sodium 137 mmol/L (136-145)
[2024-02-04 10:12] LABS: Alanine Aminotransferase 33 U/L (12-78); Albumin Level 4.1 g/dl (3.5-5.0); Albumin/Globulin Ratio 1.2 (1.1-1.8); Alkaline Phosphatase 90 U/L (38-126); Anion Gap 12.3 mEq/L (5-15); Aspartate Amino Transferase 33 U/L (17-59); Bilirubin,Total 0.7 mg/dl (0.2-1.3); Blood Urea Nitrogen 14 mg/dl (9-20); Carbon Dioxide 24 mmol/L (22.0-30.0); Creatinine Clearance Estimated 91 mL/min (50-200); Estimated Glomerular Filt Rate 73 ml/min (>60); GFR (African American) 88 ML/MIN (>60); Globulin 3.3 g/dL (1.3-3.2); Total Protein,Serum 7.4 g/dl (6.3-8.2)
[2024-02-04 10:13] LABS: Calcium 8.9 mg/dl (8.4-10.2); Glucose 132 mg/dl (74-100)
[2024-02-04 10:14] LABS: Magnesium 1.9 mg/dl (1.6-2.3)
--- NOTE | 2024-02-04 10:17 | PC.NURSE ---
pt back from ct scan
[2024-02-04] MEDS: 0.9 % SODIUM CHLORIDE 50 ML VIAL IV (10:21)
[2024-02-04] MEDS: SODIUM CHLORIDE 0.9% 10ML SYR (RAD ONLY) 10 ML IV (10:22)
[2024-02-04] MEDS: IOPAMIDOL-370 (76%);100ML BOTTLE 100 ML IV (10:22)
[2024-02-04 10:44] LABS: Thyroid Stimulating Hormone 1.96 uIU/mL (0.465-4.68)
--- NOTE | 2024-02-04 11:00 | PC.NURSE ---
unhooked pt from tele so he could go to bathroom . pt ambulated himself to and from
[2024-02-04 12:05] LABS: Troponin I < 0.01 ng/ml (0.00-0.034)
[2024-02-04 14:16] LABS: Free T4 (Free Thyroxine) 1.07 ng/dl (0.78-2.19)
== END 2024-02-04 12:47 | disposition home or self-care (01) ==
PROVIDERS: Emergency Provider Emergency Medicine; PCP Internal Medicine Adolescent Medicine
DX: I49.3 Ventricular premature depolarization (principal); I44.4 Left anterior fascicular block; R00.0 Tachycardia, unspecified; I20.89 Other forms of angina pectoris; I10 Essential (primary) hypertension
CPT/HCPCS: 71045; 71275; 80053; 83735; 83880; 84439; 84443; 84484; 85025; 93005; 99285; Q9967

== ENCOUNTER 2024-07-20 07:10 | Outpatient (CLI) | payer MEDICARE, BC, SELFPAY ==
[2024-07-20 08:01] LABS: Basophils # 0.1 K/mm3 (0-0.2); Chloride 105 mmol/L (98-107); Eosinophils # 0.2 K/mm3 (0.0-0.4); Eosinophils % 2.5 % (0.1-12.0); Hematocrit 39.8 % (42.0-52.0); Hemoglobin 13.9 g/dL (14.1-18.0); Lymphocytes # 2.9 K/mm3 (0.7-4.5); Lymphocytes % 36.4 % (10-50); Mean Corpuscular HGB Conc 34.9 g/dL (31.8-35.4); Mean Corpuscular Hemoglobin 31.2 pg (27.0-31.2); Mean Corpuscular Volume 89.3 fl (80-94); Mean Platelet Volume 7.8 fl (7.4-10.4); Monocytes # 0.5 K/mm3 (0.1-1.0); Monocytes % 6.6 % (1.7-9.3); Neutrophils # 4.2 K/mm3 (1.8-7.8); Neutrophils % 53.5 % (37.0-80.0); Platelet Count 229 K/mm3 (142-424); Potassium 3.8 mmoL/L (3.5-5.1); Red Blood Count 4.46 M/mm3 (4.60-6.20); Red Cell Distribution Width 14.1 % (11.5-17.5); Sodium 141 mmol/L (136-145); White Blood Count 7.9 K/mm3 (4.8-10.8)
[2024-07-20 08:03] LABS: Anion Gap 12.8 mEq/L (5-15); Bilirubin,Unconjugated 0.4 mg/dL (0.0-1.1); Blood Urea Nitrogen 10 mg/dl (9-20); Carbon Dioxide 27 mmol/L (22.0-30.0); Estimated Glomerular Filt Rate 82 ml/min (>60); GFR (African American) 100 ML/MIN (>60)
[2024-07-20 08:04] LABS: Alanine Aminotransferase 23 U/L (12-78); Alkaline Phosphatase 67 U/L (38-126); Aspartate Amino Transferase 22 U/L (17-59); Bilirubin,Direct 0.1 mg/dl (0.0-0.4); Bilirubin,Indirect 0.4 mg/dL (0.0-0.9); Bilirubin,Total 0.5 mg/dl (0.2-1.3); Calcium 8.7 mg/dl (8.4-10.2); Chol/HDL Ratio 2.5 (1-3.5); Cholesterol 81 mg/dl (140-200); Glucose 121 mg/dl (74-100); HDL Cholesterol 32 mg/dl (40-60); Total Protein,Serum 6.5 g/dl (6.3-8.2); Triglycerides 96 mg/dl (30-150); VLDL Cholesterol 19 mg/dL (0-40)
[2024-07-20 08:15] LABS: Direct LDL Cholesterol 33.84 mg/dL (100-129)
== END 2024-07-20 23:59 | disposition home or self-care (01) ==
LOC: LAB 07:13
PROVIDERS: PCP Internal Medicine Adolescent Medicine; Visit Provider Internal Medicine Interventional Cardiology
DX: I10 Essential (primary) hypertension (principal); I25.10 Atherosclerotic heart disease of native coronary artery without angina pectoris; E03.9 Hypothyroidism, unspecified
CPT/HCPCS: 36415; 80048; 80061; 80076; 85025

== ENCOUNTER 2024-10-19 06:50 | Outpatient (CLI) | payer MEDICARE, BC, SELFPAY ==
[2024-10-19 07:12] LABS: Basophils # 0.1 K/mm3 (0-0.2); Eosinophils # 0.2 K/mm3 (0.0-0.4); Eosinophils % 2.9 % (0.1-12.0); Hematocrit 40.9 % (42.0-52.0); Hemoglobin 13.9 g/dL (14.1-18.0); Lymphocytes # 2.7 K/mm3 (0.7-4.5); Lymphocytes % 33.4 % (10-50); Mean Corpuscular Hemoglobin 30.3 pg (27.0-31.2); Mean Corpuscular Volume 89.3 fl (80-94); Mean Platelet Volume 10.1 fl (7.4-10.4); Monocytes # 0.7 K/mm3 (0.1-1.0); Monocytes % 8.4 % (1.7-9.3); Neutrophils # 4.3 K/mm3 (1.8-7.8); Neutrophils % 53.9 % (37.0-80.0); Platelet Count 228 K/mm3 (142-424); Red Blood Count 4.58 M/mm3 (4.60-6.20); Red Cell Distribution Width 12.9 % (11.5-17.5)
[2024-10-19 08:51] LABS: Alanine Aminotransferase 33 U/L (12-78); Albumin Level 4.2 g/dl (3.5-5.0); Alkaline Phosphatase 61 U/L (38-126); Anion Gap 12.4 mEq/L (5-15); Aspartate Amino Transferase 34 U/L (17-59); Bilirubin,Direct 0.1 mg/dl (0.0-0.4); Bilirubin,Indirect 0.4 mg/dL (0.0-0.9); Bilirubin,Total 0.5 mg/dl (0.2-1.3); Bilirubin,Unconjugated 0.4 mg/dL (0.0-1.1); Blood Urea Nitrogen 12 mg/dl (9-20); Calcium 9.3 mg/dl (8.4-10.2); Carbon Dioxide 30 mmol/L (22.0-30.0); Chloride 104 mmol/L (98-107); Chol/HDL Ratio 3.1 (1-3.5); Cholesterol 100 mg/dl (140-200); Estimated Glomerular Filt Rate 94 ml/min (>60); GFR (African American) 114 ML/MIN (>60); Glucose 99 mg/dl (74-100); HDL Cholesterol 32 mg/dl (40-60); Potassium 4.4 mmoL/L (3.5-5.1); Sodium 142 mmol/L (136-145); Total Protein,Serum 6.6 g/dl (6.3-8.2); Triglycerides 135 mg/dl (30-150); VLDL Cholesterol 27 mg/dL (0-40)
[2024-10-19 09:02] LABS: Direct LDL Cholesterol 47.95 mg/dL (100-129)
== END 2024-10-19 23:59 | disposition home or self-care (01) ==
LOC: LAB 06:53
PROVIDERS: PCP Internal Medicine Adolescent Medicine; Visit Provider Internal Medicine Interventional Cardiology
DX: I10 Essential (primary) hypertension (principal)
CPT/HCPCS: 36415; 80048; 80061; 80076; 85025

== ENCOUNTER 2025-01-19 07:31 | Outpatient (CLI) | payer MEDICARE, BC, SELFPAY ==
[2025-01-19 08:17] LABS: Basophils # 0.1 K/mm3 (0-0.2); Basophils % 1.3 % (0.1-2.0); Eosinophils # 0.2 Kmm3 (0.0-0.4); Eosinophils % 3.6 % (0.1-12.0); Hematocrit 39.8 % (42.0-52.0); Hemoglobin 13.6 g/dL (14.1-18.0); Lymphocytes # 2.3 K/mm3 (0.7-4.5); Lymphocytes % 34.2 % (10-50); Mean Corpuscular HGB Conc 34.2 g/dL (31.8-35.4); Mean Corpuscular Hemoglobin 30.6 pg (27.0-31.2); Mean Corpuscular Volume 89.6 fl (80-94); Mean Platelet Volume 10.4 fl (7.4-10.4); Monocytes # 0.5 K/mm3 (0.1-1.0); Monocytes % 7.9 % (1.7-9.3); Neutrophils # 3.6 K/mm3 (1.8-7.8); Neutrophils % 52.9 % (37.0-80.0); Nucleated Red Blood Cells # 0 10^3/uL; Nucleated Red Blood Cells % 0 %; Platelet Count 212 K/mm3 (142-424); Red Blood Count 4.44 M/mm3 (4.60-6.20); Red Cell Distribution Width-SD 42.4 fL; White Blood Count 6.7 K/mm3 (4.8-10.8)
[2025-01-19 08:43] LABS: Anion Gap 8.2 mEq/L (5-15); Blood Urea Nitrogen 13 mg/dl (9-20); Calcium 9.3 mg/dl (8.4-10.2); Carbon Dioxide 26 mmol/L (22.0-30.0); Chloride 107 mmol/L (98-107); Chol/HDL Ratio 2.5 (1-3.5); Cholesterol 83 mg/dl (140-200); Estimated Glomerular Filt Rate 94 ml/min (>60); GFR (African American) 114 ML/MIN (>60); Glucose 103 mg/dl (74-100); HDL Cholesterol 33 mg/dl (40-60); Potassium 4.2 mmoL/L (3.5-5.1); Sodium 137 mmol/L (136-145); Triglycerides 124 mg/dl (30-150); VLDL Cholesterol 25 mg/dL (0-40)
[2025-01-19 08:53] LABS: Direct LDL Cholesterol 30.22 mg/dL (100-129)
== END 2025-01-19 23:59 | disposition home or self-care (01) ==
LOC: LAB 07:34
PROVIDERS: PCP Internal Medicine Adolescent Medicine; Visit Provider Internal Medicine Interventional Cardiology
DX: E78.5 Hyperlipidemia, unspecified (principal)
CPT/HCPCS: 36415; 80048; 80061; 85025

== ENCOUNTER 2025-04-24 07:59 | Outpatient (CLI) | payer MEDICARE, BC, SELFPAY ==
--- OUTSIDE RECORDS SUMMARY | 2025-04-03 08:50 | XMS_ITS | Encounter Summary ---
Author Organization [employer] ([place], [place], [place], [place]) Address [address] [place] [address] Care Team Providers Care Foil Cutter Name Role Phone López Hazel MD Primary Care Provider + [phone] Vic Kaminski MD Unavailable [phone] Mary Kate Nance MD, [facility] Unavailable + [phone] Tejinder Levy MD Unavailable [phone] Reason for Referral * CAT Scan (Routine) - Closed Specialty Diagnoses / Procedures Referred By Naa t Referred To Contact Radiology Diagnoses Ascending aorta dilation (HCC) Procedures CTA chest Tejinder Levy MD [address] [facility] [address] [place] [address] Phone: tel: fax: [facility] [address] [place] [phone] Phone: tel: fax: Referral ID Status Reason Start Date Expiration Date V isits Requested Visits Authorized [id number] Closed Continuity of Care 04/02/2025 04/02/2026 1 1 Reason for Visit * CAT Scan (Routine) - Closed Specialty Diagnoses / Procedures Referred By Contac t Referred To Contact Radiology Diagnoses Ascending aorta dilation (HCC) Procedures CTA chest Tejinder Levy MD [address] [facility] [address] [place] [address] Phone: tel: fax: [facility] [address] [place] [address] Phone: tel: fax: Referral ID Status Reason Start Date Expiration Date V isits Requested Visits Authorized [id number] Closed Continuity of Care 04/02/2025 04/02/2026 1 1 Encounter Details Date Type Department Care Team (Late st Contact Info) Description 04/03/2025 8:50 AM EDT - 04/03/2025 11:59 PM EDT Hospital Encounter [facility] [address] [place] [address] [place] [address] [place] [address] [address] [place] [address] Ascending aorta dilation (HCC) Discharge Disposition: Home or Self Care Social History Tobacco Use Types Packs/Day Years Used Date Smoking Tobacco: Never Passive Smoke Exposure: Never Smokeless Tobacco: Never Alcohol Use Standard Drinks/Week Comments Never 0 (1 standard drink = 0.6 oz pur e alcohol) Family and Community Support Answer Sergio e Recorded Help with Day to Day Activities Not on file 10/01/2023 Feeling Lonely or Isolated Not on file 10/01 Educational Attainment Answer Date David rded Speak language other than Spanish at home Not on file 10/01/2023 Want help with school or training Not on file 10/01/2023 Substance Use Answer Date Recorded Used prescription meds for non-medical reasons N ot on file 10/01/2023 Used illegal drugs past 12 months Not on file 10/01/2023 Sex and Gender Information Value Date Recorded Sex Assigned at Male 03/19/2022 5:39 PM CDT Legal Sex Male 6:52 PM CDT Gender Identity Male 03/19/2022 5:39 PM CDT Sexual Orientation Not on file documented as of this encounter Medications at Time of Discharge ascorbic acid, vitamin C, (vitamin C) 1000 MG tablet Take 1 tablet (1,000 mg total) by mouth daily. aspirin 81 MG EC tablet Take 1 tablet (81 mg total) by mouth 2 (two) times daily. atenoloL (TENORMIN) 25 MG tablet Take 1 tablet (25 mg total) by mouth daily. isosorbide mononitrate (IMDUR) 60 MG 24 hr tablet Take 1 tablet (60 mg total) by mouth every morning. 01/11/2024 Lactobac no.41/Bifidobact no.7 (PROBIOTIC-10 ORAL) Take 1 capsule by mouth daily. levothyroxine (SYNTHROID, LEVOTHROID) 100 MCG tablet Take 1 tablet (100 mcg total) by mouth daily. 01/06/2024 lisinopriL (PRINIVIL,ZESTRIL) 10 MG tablet Take 2 tablets (20 mg total) by mouth daily. magnesium citrate solution Take 296 mLs by mouth once. multivitamin per tablet Take 1 tablet by mouth daily. rosuvastatin (CRESTOR) 20 MG tablet Take 1 tablet (20 mg total) by mouth daily. 01/09/2024 documented as of this encounter Miscellaneous Notes * Result Encounter Note - Kaitlynn Verma CMA - 04/03/2025 9:00 AM EDT Noted, patient has appointment scheduled and results can be reviewed at the visit. * Result Encounter Note - Kaitlynn Verma CMA - 04/03/2025 9:00 AM EDT Noted, patient has appointment scheduled and results can be reviewed at the visit. documented in this encounter Plan of Treatment Upcoming Encounters Date Type Department Care Team (Late st Contact Info) Description 04/16/2026 9:00 AM EDT Office Visit [facility] Cardiothoracic Surgery - [address] [address] Tejinder Levy MD [address] [facility] [address] [place] [address] documented as of this encounter Procedures Procedure Name Priority Date/Time Associated Diagnosis Comments CTA CHEST Routine 04/03/2025 9:39 AM EDT Ascending aorta dilation (HCC) POCT-CREATININE NOVA Routine 04/03/2025 9:27 AM EDT documented in this encounter Results * CTA chest (04/03/2025 9:39 AM EDT) Anatomical Region Laterality Modality Chest, Lung Computed Tomogra phy (CT) 04/03/2025 10:5 1 AM EDT Impressions 04/03/2025 3:21 PM EDT Stable ascending aortic aneurysm. No acute process. Images reviewed, interpreted, and dictated by Dr. Lesley Ragsdale. Transcribed by Blanca Allison PA-C. Narrative 04/03/2025 3:21 PM EDT CTA PROTOCOL CHEST CT: 04/03/2025 9:34 AM HISTORY: Ascending aortic dilation, follow-up. COMPARISON: March 2024 TECHNIQUE: The patient was injected with IV contrast. Axial images were obtained through the chest in a CTA protocol. Coronal and sagittal reconstruction images were also performed. This study was performed with techniques to keep radiation doses as low as reasonably achievable, (ALARA). Individualized dose reduction techniques using automated exposure control or adjustment of mA and/or kV according to the patient size were employed. FINDINGS: There is no axillary adenopathy. There is no hilar or mediastinal adenopathy. The heart size is normal. There is no pericardial or pleural effusion. The ascending aorta is aneurysmal, measuring 44 mm. This previously measured 45 mm. Difference is likely due to measurement on true sagittal views versus measurement on oblique sagittal views. There is no dissection. There is no central pulmonary embolism. Limited images of the upper abdomen demonstrate gallstones in the gallbladder. There is no acute process in the upper abdomen. No acute osseous abnormality is identified. There is evidence of prior granulomatous disease. Mild subpleural interlobular septal thickening is identified at the lung bases. This is similar to previous and likely related to chronic interstitial disease. There is no new infiltrate. Procedure Note Lesley Ragsdale MD - 04/03/[address]: 04/03/2025 9:34 AM HISTORY: Ascending aortic dilation, follow-up. COMPARISON: March 2024 TECHNIQUE: The patient was injected with IV contrast. Axial images were obtained through the chest in a CTA protocol. Coronal and sagittal reconstruction images were also performed. This study was performed with techniques to keep radiation doses as low as reasonably achievable, (ALARA). Individualized dose reduction techniques using automated exposure control or adjustment of mA and/or kV according to the patient size were employed. FINDINGS: There is no axillary adenopathy. There is no hilar or mediastinal adenopathy. The heart size is normal. There is no pericardial or pleural effusion. The ascending aorta is aneurysmal, measuring 44 mm. This previously measured 45 mm. Difference is likely due to measurement on true sagittal views versus measurement on oblique sagittal views. There is no dissection. There is no central pulmonary embolism. Limited images of the upper abdomen demonstrate gallstones in the gallbladder. There is no acute process in the upper abdomen. No acute osseous abnormality is identified. There is evidence of prior granulomatous disease. Mild subpleural interlobular septal thickening is identified at the lung bases. This is similar to previous and likely related to chronic interstitial disease. There is no new infiltrate. IMPRESSION: Stable ascending aortic aneurysm. No acute process. Images reviewed, interpreted, and dictated by Dr. Lesley Ragsdale. Transcribed by Blanca Allison PA-C. Tejinder Levy MD IMG CT ORDERABLES Final R esult * POC-Creatinine (04/03/2025 9:27 AM EDT) POC-Creatinine 0.8 mg/dL 04/03/2025 9:29 AM EDT [facility] POC-EGFR >60 mL/min/1. 73M2 04/03/2025 9:29 AM EDT [facility] Comment:Proceed with contras t if eGFR > 45 ml/min/1.73 when performed on the NovaSTAT strip Creatinine meter. Casino Investigator FRED RODRIGUEZ 04/03/2025 9:29 AM EDT [facility] Blood 04/03/2025 9:27 AM EDT 04/03/2025 9:29 AM EDT Narrative [facility] - 04/03/2025 9:29 AM EDT Casino Investigator ID is - [id number] Tejinder Levy MD POINT OF CARE TEST ORDERA BLES Final Result [facility] [address] [place] [address], [facility] [phone] documented in this encounter Visit Diagnoses Diagnosis Ascending aorta dilation (HCC) Thoracic aneurysm without mention of rupture documented in this encounter Administered Medications Inactive Administered Medications - up to 3 most recent administrations Medication Order MAR Action Action Date Dose Rate Site iopamidoL (ISOVUE-370) 370 mg iodine /mL (76 %) injection 75 mL 75 mL IMG once as needed, intravenous, contrast, Starting on Wed04/03/25 at 0935, For 1 dose, Intra-op Given 04/03/2025 9:36 AM EDT 75 mLs documented in this encounter Care Teams Foil Cutter Relationship Specialty Start Date End Date López Hazel MD [address] [place], [place] [id number] PCP - General Adolescent Medicine 08/02/23 Vic Kaminski MD [address] [facility] [address] [place] [address] Roofing Machine Tender Cardiology 03/09/24 Wisam Hartmann Jr., MD [address] [facility] [address] [place] [address] Urologist Urology 03/10/24 Tejinder Levy MD [address] [place] [address] Surgeon Cardiothoracic Surgery 03/14/24 documented as of this encounter
--- OUTSIDE RECORDS SUMMARY | 2025-04-10 09:00 | XMS_ITS | Encounter Summary ---
Author Organization [employer] ([place], [place], [place], [place]) Address [address] [place] [address] Care Team Providers Care Corporate Training Manager Name Role Phone López Hazel MD Primary Care Provider + [phone] Vic Kaminski MD Unavailable [phone] Mary Kate Nance MD, [facility] Unavailable + [phone] Tejinder Levy MD Unavailable [phone] Reason for Visit * Reason Comments Ascending Aortic Aneurysm 1 yr follow up with CTA Chest. Encounter Details Date Type Department Care Team (Late st Contact Info) Description 04/10/2025 9:00 AM EDT Office Visit [facility] Cardiothoracic Surgery - [facility] [address] [facility] [address] [place] [address] [place] [address] [place] [address] [address] [place] [address] Ascending aortic aneurysm (HCC) (Primary Dx) Social History Tobacco Use Types Packs/Day Years Used Date Smoking Tobacco: Never Passive Smoke Exposure: Never Smokeless Tobacco: Never Tobacco Cessation:Counseling Given: Not Answered Alcohol Use Standard Drinks/Week Comments Never 0 (1 standard drink = 0.6 oz pur e alcohol) Family and Community Support Answer Sergio e Recorded Help with Day to Day Activities Not on file 10/01/2023 Feeling Lonely or Isolated Not on file 10/01 Educational Attainment Answer Date David rded Speak language other than Kazakh at home Not on file 10/01/2023 Want [...] on file documented as of this encounter Last Filed Vital Signs Vital Sign Reading Time Taken Comments Blood Pressure 136/70 04/10/2025 8:53 AM EDT Pulse 64 04/10/2025 8:53 AM EDT Temperature - - Respiratory Rate - - Oxygen Saturation 94% 04/10/2025 8:53 AM EDT Inhaled Oxygen Concentration - - Weight 102.5 kg (226 lb) 04/10/2025 8:53 AM EDT Height 180.3 cm (5' 11 ) 04/10/2025 8:53 AM EDT Body Mass Index 31.52 04/10/2025 8:53 AM EDT documented in this encounter Progress Notes * Tejinder Levy MD - 04/10/2025 9:00 AM EDT CONSULT HISTORY and PHYSICAL CARDIOTHORACIC SURGERY Consulting Service: Cardiothoracic Surgery Requesting Provider: López Hazel MD [address] [place] [id number] Cardiothoracic Physician: Tejinder Levy MD NAME: Edwin Guzman Chief Complaint Patient presents with Ascending Aortic Aneurysm 1 yr follow up with CTA Chest. Vitals: 04/10/25 0853 BP: 136/70 Patient Position: Sitting Pulse: 64 SpO2: 94% Weight: 102.5 kg (226 lb) Height: 1.803 m (5' 11 ) STS SCORE: HPI: Mr. Mike Guzman is here for follow-up of his ascending aortic aneurysm. Initially it was felt thatit was 5.[address] scan of the chest revealed however that the aneurysm is only 4.5 cm in diameter. Patient also with history of occlusion of the LAD which fills via collaterals. Patient is here for follow-up. Today he says that he is feeling well. He has undergone a repeat CT scan of the chest. This has revealed the ascending aorta to be 4.4 cm in size and it is essentially unchanged. Assessment: Stable ascending aortic aneurysm measuring 4.4 to 4.5 cm in size. Plan: I do not recommend any surgical intervention at this point. We will continue to follow this aneurysm. I will arrange for him to have a repeat CT scan of the chest with no contrast in 1 year and return to the clinic. PAST MEDICAL HISTORY: Past Medical History: Diagnosis Date Abnormal ECG Cancer (HCC) Chest discomfort Coronary artery disease HTN (hypertension) NSTEMI (non-ST elevated myocardial infarction) (HCC) Prostate cancer (HCC) Pulmonary hypertension (HCC) Thoracic aneurysm, ruptured (HCC) PAST SURGICAL HISTORY: Past Surgical History: Procedure Laterality Date CARDIAC CATHETERIZATION 07/30/2023 Dr Kaminski [place] [facility] [place] FAMILY HISTORY: Family History Problem Relation Name Age of Onset Coronary artery disease Mother Aruna [place] Angina Mother Aruna [place] Heart attack Mother Aruna [place] Hypertension Mother Aruna [place] Sudden Mother Aruna [place] Coronary artery disease Father Negro Thomas Abnormal EKG Father Negro [place] Angina Father Negro [place] Heart attack Father Negro Thomas Heart disease Father Negro [place] Hypertension Father Negro [place] Abnormal EKG Brother Negro Rivas [place] Angina Brother Negro Rivas [place] Heart attack Brother Negro Rivas [place] Heart disease Brother Negro Rivas [place] Heart attack Brother Yoel Enciso [place] Sudden Brother Yoel Guzman Social History Tobacco Use Smoking status: Never Passive exposure: Never Smokeless tobacco: Never Vaping Use Vaping status: Never Used Substance Use Topics Alcohol use: Never Drug use: Never MEDICATIONS: Prior to Admission Medications: Current Outpatient Medications Medication Instructions ascorbic acid (VITAMIN C) 1,000 mg, Daily aspirin 81 mg, 2 times daily atenoloL (TENORMIN) 25 mg, Daily isosorbide mononitrate (IMDUR) 60 mg, Every morning Lactobac no.41/Bifidobact no.7 (PROBIOTIC-10 ORAL) 1 capsule, Daily levothyroxine (SYNTHROID) 100 mcg, Daily lisinopriL (ZESTRIL) 20 mg, Daily magnesium citrate solution 296 mLs, Once multivitamin per tablet 1 tablet, Daily rosuvastatin (CRESTOR) 20 mg, Daily No current facility-administered medications for this visit. ALLERGIES: Patient has no known allergies. Review of Systems Constitutional: Negative for diaphoresis, fatigue and fever. HENT: Negative for trouble swallowing and voice change. Eyes: Negative for visual disturbance. Respiratory: Negative for cough and shortness of breath. Cardiovascular: Negative for chest pain, palpitations and leg swelling. Gastrointestinal: Negative for abdominal distention, abdominal pain, blood in stool, nausea and vomiting. Genitourinary: Negative for difficulty urinating, dysuria and hematuria. Musculoskeletal: Negative for gait problem. Skin: Negative for rash and wound. Neurological: Negative for dizziness, seizures, syncope, weakness and headaches. Hematological: Negative for adenopathy. Psychiatric/Behavioral: The patient is not nervous/anxious. Vitals reviewed. Constitutional: Appearance: Not in distress. Eyes: Conjunctiva/sclera: Conjunctivae normal. HENT: Mouth/Throat: Dentition: Normal. Pulmonary: Effort: Pulmonary effort is normal. Breath sounds: Normal breath sounds. Cardiovascular: PMI at left midclavicular line. Normal rate. Regular rhythm. Murmurs: There is no murmur. No rub. Pulses: Intact distal pulses. Edema: Peripheral edema absent. Abdominal: General: There is no distension. Palpations: Abdomen is soft. Tenderness: There is no abdominal tenderness. Musculoskeletal: General: No tenderness. Extremities: No clubbing present. Cervical back: Normal range of motion and neck supple. Skin: General: Skin is warm. Findings: No rash. Neurological: General: No focal deficit present. Mental Status: Alert and oriented to person, place and time. Labs: No results for input(s): CK , TROPT in the last 72 hours. Invalid input(s): MB , MBP , CKMBP No results for input(s): WBC , HCT , PLT in the last 72 hours. Invalid input(s): HB No results for input(s): INR , APTT in the last 72 hours. No results for input(s): NA , K , CO2 , BUN , CREAT , ALKPHOS , ALT , AST , PROT , ALB in the last 72 hours. Invalid input(s): CHLOR , GLUC No results for input(s): CHOL , HDL in the last 72 hours. Problem list: Patient Active Problem List Diagnosis Aortic root dilation (HCC) Ascending aorta dilation (HCC) HTN (hypertension) Mitral regurgitation Tricuspid regurgitation CAD (coronary artery disease) SIGNATURE: Tejinder Levy MD Date of Service: 04/10/2025 documented in this encounter Plan of Treatment Upcoming Encounters Date Type Department Care Team (Late st Contact Info) Description 04/16/2026 9:00 AM EDT Office Visit [facility] Cardiothoracic Surgery - [facility] [address] [facility] [address] [place] [address] [place] [address] [place] [address] [address] [place], [place] [id number] documented as of this encounter Visit Diagnoses Diagnosis Ascending aortic aneurysm (HCC)- Primary Thoracic aneurysm without mention of rupture documented in this encounter Care Teams Corporate Training Manager Relationship Specialty Start Date End Date López Hazel MD [address] [place] [address] [place] [address] PCP - General Adolescent Medicine 08/02/23 Vic Kaminski MD [address] [place], [place] [id number] Television Equipment Operator Cardiology 03/09/24 Wisam Hartmann Jr., MD [address] [facility] [address] [place] [address] Urologist Urology 03/10/24 [place] [address] [place] [address] [address] [place] [address] Surgeon Cardiothoracic Surgery 03/14/24 documented as of this encounter
--- OUTSIDE RECORDS SUMMARY | 2025-04-24 08:02 | XMS_ITS | Encounter Summary ---
Author Organization [employer] ([place], [place], [place], [place]) Address [address] [place] [address] Care Team Providers Care Psychiatric Secretary Name Role Phone Provider, Not In System Primary Care Provider Un available López Hazel MD Primary Care Provider + [phone] Vic Kaminski MD Unavailable [phone] Mary Kate Nance MD, [facility] Unavailable [phone] Tejinder Levy MD Unavailable [phone] Encounter Details Date Type Department Care Team (Late st Contact Info) Description 10/05/2019 Transcribed Document [facility] Family Medicine [address] [place] [address] ProviderElias MD [address] [place] [address] Social History Tobacco Use Types Packs/Day Years Used Date Smoking Tobacco: Never Assessed Sex and Gender Information Value Date Recorded Sex Assigned at Male 03/19/2022 5:39 PM CDT Legal Sex Male 6:52 PM CDT Gender Identity Male 03/19/2022 5:39 PM CDT Sexual Orientation Not on file documented as of this encounter Miscellaneous Notes * Cerner Conversion Note - Historical ProviderMD - 10/05/2019 11:43 AM SHIP SCRAPER Nursing Discharge Summary Entered On: 10/05/2019 11:44 EST Performed On: 10/05/2019 11:43 EST by Lata Carbajal RN Discharge Documentation Discharge Date/Time : 10/05/2019 11:42 EST Transporter Signature : Shivani Us [facility] Patient Disposition, General : Discharge Discharge To : Home with ambulatory/outpatient follow-up Mode Of Departure, General Discharge : Private vehicle, Wheelchair Accompanied By, Discharge : Daughter IV Discontinued : Yes Personal Belongings With Patient : Yes Prescriptions Given to Patient : Yes Discharge Instructions Reviewed With, Opportunity For Questions Given : Patient, Daughter Patient Education Completed : Yes Number of Prescriptions Given : 4 Teaching Method : Explanation Teaching Evaluation : Verbalizes understanding Education Comment : Patient and daughter deny questions at this time Lata Carbajal RN - 10/05/2019 11:43 EST Electronically signed by [facility] Conversion Nuclear Powerplant Mechanic Cerner at 01/06/2023 11:45 AM CDT documented in this encounter Plan of Treatment Upcoming Encounters Date Type Department Care Team (Late st Contact Info) Description 04/16/2026 9:00 AM EDT Office Visit [facility] Cardiothoracic Surgery - [facility] [address] [facility] [address] [place] [phone] Tejinder Levy MD [address] [facility] [address] [place], [place] [id number] documented as of this encounter Visit Diagnoses Not on filedocumented in this encounter Care Teams Psychiatric Secretary Relationship Specialty Start Date End Date Provider, Not In System [place] PCP - General 07/30/23 08/01/23 López Hazel MD [address] [facility] [address] [place] [address] PCP - General Adolescent Medicine 08/02/23 Vic Kaminski MD [address] [facility] [address] [place] [address] Bait Tier Cardiology 03/09/24 Wisam Hartmann Jr., MD [address] [facility] [address] [place] [address] Urologist Urology 03/10/24 Tejinder Levy MD [address] [place] [address] Surgeon Cardiothoracic Surgery 03/14/24 documented as of this encounter
--- OUTSIDE RECORDS SUMMARY | 2025-04-24 08:02 | XMS_ITS | Encounter Summary ---
Author Organization [employer] ([place], [place], [place], [place]) Address [address] [place] [address] Care Team Providers Care Application Developer Manager Name Role Phone Provider, Not In System Primary Care Provider Un available López Hazel MD Primary Care Provider + [phone] Vic Kaminski MD Unavailable [phone] Mary Kate Nance MD, Wisam K Unavailable + [phone] Tejinder Levy MD Unavailable [phone] Encounter Details Date Type Department Care Team (Late st Contact Info) Description 10/03/2019 Transcribed Document [facility] [place] Family Medicine [address] [place] [address] ProviderElias MD [address] [place] [address] Social History Tobacco Use Types Packs/Day Years Used Date Smoking Tobacco: Never Assessed Sex and Gender Information Value Date Recorded Sex Assigned at Male 03/19/2022 5:39 PM CDT Legal Sex Male 6:52 PM CDT Gender Identity Male 03/19/2022 5:39 PM CDT Sexual Orientation Not on file documented as of this encounter Miscellaneous Notes * Cerner Conversion Note - Historical ProviderMD - 10/03/2019 9:42 AM HAND LAMINATOR [facility] OR PACU Summary Primary Physician: WISAM HARTMANN JR, MD-URO Finalized Date/Time: 10/03/19 13:51:06 Pt. Name: EDWIN GUZMAN /Sex: 1950 Male Med Rec #: [id number] Physician: WISAM HARTMANN JR, MD-URO Financial #: [id number] Pt. Type: I Room/Bed: Admit/Disch: 10/03/19 05:08:00 - Institution: [facility] OR PACU Case Times Entry 1 In PACU I 10/03/19 10:54:00 Ready for PACU 10/03/19 11:35:00 Discharge Discharge from PACU 10/03/19 13:50:00 I Last Modified By: Vannesa Contreras RN 10/03/19 13:50:41 [facility] OR PACU Case Times Audit 10/03/19 13:50:41 Internet Sales Representative: [email or web address] Modifier: [email or web address] <+> 1 Discharge from PACU I 10/03/19 12:20:32 Internet Sales Representative: [id number] Modifier: [email or web address] 1 <-> Discharge from PACU I 10/03/19 11:35:00 10/03/19 11:47:33 Internet Sales Representative: [id number] Modifier: [id number] <+> 1 Ready for PACU Discharge <+> 1 Discharge from PACU I Finalized By: Vannesa Contreras, RN Document Signatures Signed By: Chanel Lockett RN 10/03/19 11:47 Vannesa Contreras RN 10/03/19 13:51 Unfinalized History Date/Time Username Reason for Unfinalizing Freetext Reason for Unfinalizing 10/03/19 12:20 RMMORTON Finish Documentation documented in this encounter Plan of Treatment Upcoming Encounters Date Type Department Care Team (Late st Contact Info) Description 04/16/2026 9:00 AM EDT Office Visit [facility] Cardiothoracic Surgery - [address] [phone] Tejinder Levy MD [address] [place] [address] [address] [place] [address] [place] [id number] documented as of this encounter Visit Diagnoses Not on filedocumented in this encounter Care Teams Application Developer Manager Relationship Specialty Start Date End Date Provider, Not In System [place] PCP - General 07/30/23 08/01/23 López Hazel MD [address] [place] [address] [place] [address] PCP - General Adolescent Medicine 08/02/23 Vic Kaminski MD [address] [place], [place] [id number] Marine Engineering Technicians Cardiology 03/09/24 Wisam Hartmann Jr., MD [address] [facility] [address] [place], [place] [id number] Urologist Urology 03/10/24 Tejinder Levy MD [address] [facility] [address] [place] [address] Surgeon Cardiothoracic Surgery 03/14/24 documented as of this encounter
--- OUTSIDE RECORDS SUMMARY | 2025-04-24 08:03 | XMS_ITS | Encounter Summary ---
Author Organization [employer] ([place], [place], [place], [place]) Address [address] [place] [address] Care Team Providers Care Art Display Maker Name Role Phone Provider, Not In System Primary Care Provider Un available López Hazel MD Primary Care Provider + [phone] Vic Kaminski MD Unavailable [phone] Mary Kate Nance MD, Wisam Viera Unavailable [phone] Tejinder Levy MD Unavailable [phone] Encounter Details Date Type Department Care Team (Late st Contact Info) Description 10/05/2019 Transcribed Document [facility] [place] [facility] [address] ProviderElias MD [address] [place] [address] Social History Tobacco Use Types Packs/Day Years Used Date Smoking Tobacco: Never Assessed Sex and Gender Information Value Date Recorded Sex Assigned at Male 03/19/2022 5:39 PM CDT Legal Sex Male 6:52 PM CDT Gender Identity Male 03/19/2022 5:39 PM CDT Sexual Orientation Not on file documented as of this encounter Miscellaneous Notes * Cerner Conversion Note - Elias Irvin MD - 10/05/2019 10:23 AM QUILL MACHINE TENDER Patient Education Materials Follows: Indwelling Urinary Catheter Care, Adult An indwelling urinary catheter is a thin tube that is put into your bladder. The tube helps to drain pee (urine) out of your body. The tube goes in through your urethra. Your urethra is where pee comes out of your body. Your pee will come out through the catheter, then it will go into a bag (drainage bag). Take good care of your catheter so it will work well. How to wear your catheter and bag Supplies needed ??? Sticky tape (adhesive tape) or a leg strap. ??? Alcohol wipe or soap and water (if you use tape). ??? A clean towel (if you use tape). ??? Large overnight bag. ??? Smaller bag (leg bag). Wearing your catheter Attach your catheter to your leg with tape or a leg strap. ??? Make sure the catheter is not pulled tight. ??? If a leg strap gets wet, take it off and put on a dry strap. ??? If you use tape to hold the bag on your le. Use an alcohol wipe or soap and water to wash your skin where the tape made it sticky before. 2. Use a clean towel to pat-dry that skin. 3. Use new tape to make the bag stay on your leg. Wearing your bags You should have been given a large overnight bag. ??? You may wear the overnight bag in the day or night. ??? Always have the overnight bag lower than your bladder. Do not let the bag touch the floor. ??? Before you go to sleep, put a clean plastic bag in a wastebasket. Then hang the overnight bag inside the wastebasket. You should also have a smaller leg bag that fits under your clothes. ??? Always wear the leg bag below your knee. ??? Do not wear your leg bag at night. How to care for your skin and catheter Supplies needed ??? A clean washcloth. ??? Water and mild soap. ??? A clean towel. Caring for your skin and catheter ??? Clean the skin around your catheter every day: 1. Wash your hands with soap and water. 2. Wet a clean washcloth in warm water and mild soap. 3. Clean the skin around your urethra. ? If you are female: ? Gently spread the folds of skin around your vagina (labia). ? With the washcloth in your other hand, wipe the inner side of your labia on each side. Wipe from front to back. ? If you are male: ? Pull back any skin that covers the end of your penis (foreskin). ? With the washcloth in your other hand, wipe your penis in small circles. Start wiping at the tip of your penis, then move away from the catheter. 4. With your free hand, hold the catheter close to where it goes into your body. ? Keep holding the catheter during cleaning so it does not get pulled out. 5. With the washcloth in your other hand, clean the catheter. ? Only wipe downward on the catheter. ? Do not wipe upward toward your body. Doing this may push germs into your urethra and cause infection. 6. Use a clean towel to pat-dry the catheter and the skin around it. Make sure to wipe off all soap. 7. Wash your hands with soap and water. ??? Shower every day. Do not take baths. ??? Do not use cream, ointment, or lotion on the area where the catheter goes into your body, unless your doctor tells you to. ??? Do not use powders, sprays, or lotions on your genital area. ??? Check your skin around the catheter every day for signs of infection. Check for: ? Redness, swelling, or pain. ? Fluid or blood. ? Warmth. ? Pus or a bad smell. How to empty the bag Supplies needed ??? Rubbing alcohol. ??? Gauze pad or cotton ball. ??? Tape or a leg strap. Emptying the bag Pour the pee out of your bag when it is ??? full, or at least 2?3 times a day. Do this for your overnight bag and your leg bag. Do not clean your bags unless your doctor tells you to. 1. Wash your hands with soap and water. 2. Separate (detach) the bag from your leg. 3. Hold the bag over the toilet or a clean pail. Keep the bag lower than your hips and bladder. This is so the pee (urine) does not go back into the tube. 4. Open the pour spout. It is at the bottom of the bag. 5. Empty the pee into the toilet or pail. Do not let the pour spout touch any surface. 6. Put rubbing alcohol on a gauze pad or cotton ball. 7. Use the gauze pad or cotton ball to clean the pour spout. 8. Close the pour spout. 9. Attach the bag to your leg with tape or a leg strap. 10. Wash your hands with soap and water. How to change the bag Supplies needed ??? Alcohol wipes. ??? A clean bag. ??? Tape or a leg strap. Changing the bag Replace your bag with a clean bag once a month. If it starts to leak, smell bad, or look dirty, change it sooner. 1. Wash your hands with soap and water. 2. Separate the dirty bag from your leg. 3. Pinch the catheter with your fingers so that pee does not spill out. 4. Separate the catheter tube from the bag tube where these tubes connect (at the connection valve). Do not let the tubes touch any surface. 5. Clean the end of the catheter tube with an alcohol wipe. Use a different alcohol wipe to clean the end of the bag tube. 6. Connect the catheter tube to the tube of the clean bag. 7. Attach the clean bag to your leg with tape or a leg strap. Do not make the bag tight on your leg. 8. Wash your hands with soap and water. General rules ??? Never pull on your catheter. Never try to take it out. Doing that can hurt you. ??? Always wash your hands before and after you touch your catheter or bag. Use a mild, fragrance-free soap. If you do not have soap and water, use hand copper plate lithographer. ??? Always make sure there are no twists or bends (kinks) in the catheter tube. ??? Always make sure there are no leaks in the catheter or bag. ??? Drink enough fluid to keep your pee pale yellow. ??? Do not take baths, swim, or use a hot tub. ??? If you are female, wipe from front to back after you poop (have a bowel movement). Contact a doctor if: ??? Your pee is cloudy. ??? Your pee smells worse than usual. ??? Your catheter gets clogged. ??? Your catheter leaks. ??? Your bladder feels full. Get help right away if: ??? You have redness, swelling, or pain where the catheter goes into your body. ??? You have fluid, blood, pus, or a bad smell coming from the area where the catheter goes into your body. ??? Your skin feels warm where the catheter goes into your body. ??? You have a fever. ??? You have pain in your: ? Belly (abdomen). ? Legs. ? Lower back. ? Bladder. ??? You see blood in the catheter. ??? Your pee is pink or red. ??? You feel sick to your stomach (nauseous). ??? You throw up (vomit). ??? You have chills. ??? Your pee is not draining into the bag. ??? Your catheter gets pulled out. Summary ??? An indwelling urinary catheter is a thin tube that is placed into the bladder to help drain pee (urine) out of the body. ??? The catheter is placed into the part of the body that drains pee from the bladder (urethra). ??? Taking good care of your catheter will keep it working properly and help prevent problems. ??? Always wash your hands before and after touching your catheter or bag. ??? Never pull on your catheter or try to take it out. This information is not intended to replace advice given to you by your health care provider. Make sure you discuss any questions you have with your health care provider. Document Released: 01/01/2014 Document Revised: 04/22/2018 Document Reviewed: 04/22/2018 [employer] Interactive Patient Education ? 2019 [employer]. Urology Laparoscopic Prostatectomy Laparoscopic prostatectomy is a surgery to remove the entire prostate gland and seminal vesicles. The surgery is performed using a thin, pencil-sized instrument (laparoscope) with a light and camera on the end to help the surgeon see inside the abdomen. This surgery may be done to treat prostate cancer or an enlarged prostate gland (benign prostatic hyperplasia). Laparoscopic prostatectomy is less invasive than other types of surgeries for removing the prostate gland. During this procedure, 4?5 small incisions are made in the abdomen. The laparoscope and other surgical instruments are placed through the incisions and the prostate gland is removed. Tell a health care provider about: ??? Any allergies you have. ??? All medicines you are taking, including vitamins, herbs, eye drops, creams, and evbd-zlp-wakwpzg medicines. ??? Any problems you or family members have had with anesthetic medicines. ??? Any blood disorders you have. ??? Any surgeries you have had. ??? Any medical conditions you have. What are the risks? Generally, this is a safe procedure. However, problems may occur, including: ??? Infection. ??? Bleeding and the risk that you may require donated blood (transfusion). ??? Allergic reactions to medicines. ??? Damage to other structures or organs, such as the rectum, bladder, or small bowel. ??? Blockage in the intestines or bowel. ??? Scarring (stricture) that causes problems with the flow of urine. ??? Inability to control when you urinate (incontinence). ??? Inability to get or keep an erection (erectile dysfunction). What happens before the procedure? Staying hydrated Follow instructions from your health care provider about hydration, which may include: ??? Up to 2 hours before the procedure ? you may continue to drink clear liquids, such as water, clear fruit juice, black coffee, and plain tea. Eating and drinking restrictions Follow instructions from your health care provider about eating and drinking, which may include: ??? 8 hours before the procedure ? stop eating heavy meals or foods such as meat, fried foods, or fatty foods. ??? 6 hours before the procedure ? stop eating light meals or foods, such as toast or cereal. ??? 6 hours before the procedure ? stop drinking milk or drinks that contain milk. ??? 2 hours before the procedure ? stop drinking clear liquids. General instructions ??? Ask your health care provider about: ? Changing or stopping your regular medicines. This is especially important if you are taking diabetes medicines or blood thinners. ? Taking medicines such as aspirin and ibuprofen. These medicines can thin your blood. Do not take these medicines before your procedure if your health care provider instructs you not to. ??? Follow your health care provider's instructions about cleansing your bowels. ??? Do not use any products that contain nicotine or tobacco, such as cigarettes and e-cigarettes. If you need help quitting, ask your health care provider. ??? Practice any breathing exercises as told by your health care provider. ??? Plan to have someone take you home from the hospital or clinic. ??? If you will be going home right after the procedure, plan to have someone with you for 24 hours. What happens during the procedure? To reduce your risk of infection: ? Your health care team will wash or sanitize their hands. ? Your skin will be washed with soap. ? Hair may be removed from the surgical area. ??? An IV tube will be inserted into one of your veins. ??? You will be given one or more of the following: ? A medicine to help you relax (sedative). ? A medicine to make you fall asleep (general anesthetic). ??? A tube (Garcia catheter) will be inserted into your urethra?to drain urine from your bladder. ??? An incision will be made in your abdomen at your belly button. ??? A laparoscope will be inserted into your abdomen through the incision. ??? Four or more small incisions will be made. ??? Surgical instruments will be inserted into the incisions and used to remove your prostate and seminal vesicles. Your urethra will be disconnected from your bladder. ??? Your urethra will be reconnected to the group of muscles that help push urine through the urethra (bladder neck). ??? The laparoscope and other surgical instruments will be removed. ??? Your incisions will be closed with stitches (sutures). The procedure may vary among health care providers and hospitals. What happens after the procedure? Your blood pressure, heart rate, breathing rate, and blood oxygen level will be monitored until the medicines you were given have worn off. ??? You may continue to receive fluids and medicines through an IV tube. You may be given antibiotics, or medicine to help relieve pain or nausea. ??? You will be encouraged to walk as soon as possible. You will also use a device or do breathing exercises to keep your lungs clear. ??? You may continue to have a Garcia catheter draining your urine. You will be instructed on how to care for this at home. ??? Do not drive for 24 hours if you received a sedative. Summary ??? Laparoscopic prostatectomy is a surgery to remove the entire prostate gland and seminal vesicles. The surgery is performed using a thin, pencil-sized instrument (laparoscope) with a light and camera on the end to help the surgeon see inside the abdomen. ??? You may continue to receive fluids and medicines through an IV tube. You may be given antibiotics, or medicine to help relieve pain or nausea. ??? You will continue to have a Garcia catheter draining your urine. You will be instructed on how to care for this at home. ??? Plan to have someone take you home from the hospital or clinic. This information is not intended to replace advice given to you by your health care provider. Make sure you discuss any questions you have with your health care provider. Document Released: 09/06/2006 Document Revised: 08/23/2017 Document Reviewed: 08/23/2017 [employer] Interactive Patient Education ? 2019 [employer]. Laparoscopic Prostatectomy, Care After This sheet gives you information about how to care for yourself after your procedure. Your health care provider may also give you more specific instructions. If you have problems or questions, contact your health care provider. What can I expect after the procedure? After the procedure, it is common to have: ??? Pain. ??? Abdominal discomfort. ??? Nausea. Follow these instructions at home: Medicines ??? Take uxhr-zvt-hsbtgzn and prescription medicines only as told by your health care provider. ??? If you were prescribed an antibiotic medicine, take it as told by your health care provider. Do not stop taking the antibiotic even if you start to feel better. Activity ??? Increase your activity level slowly. Being active after your surgery is important because it reduces your risk of developing blood clots. ??? Get out of bed as much as possible, but do not do activities that require a lot of energy. Walk around as tolerated. ??? For the first 10 days after your procedure, avoid: ? Lifting. ? Straining. ? Running. ? Walking more than a couple of blocks. ? Driving or riding in a car for long periods of time. ? Sexual activity. Diet ??? Avoid alcohol and drinks with caffeine for 2 weeks. Alcohol and caffeine irritate the bladder. ??? Avoid spicy foods. These can irritate the bladder. ??? To prevent or treat constipation while you are taking prescription pain medicine, your health care provider may recommend that you: ? Drink enough fluid to keep your urine clear or pale yellow. ? Take anhu-yun-libxjsa or prescription medicines. ? Eat foods that are high in fiber, such as fresh fruits and vegetables, whole grains, and beans. ? Limit foods that are high in fat and processed sugars, such as fried and sweet foods. Bowel and bladder care ??? Follow your health care provider's instructions about caring for your Garcia catheter. ??? Urinate when you feel the need to. Do not hold in your urine for long periods of time. ??? Do not strain to have a bowel movement. Straining increases the chances of bleeding. Incision care ??? Follow instructions from your health care provider about how to take care of your incisions. Make sure you: ? Wash your hands with soap and water before you change your bandage (dressing). If soap and water are not available, use hand copper plate lithographer. ? Change your dressing as told by your health care provider. ? Leave stitches (sutures) or adhesive strips in place. These skin closures may need to stay in place for 2 weeks or longer. If adhesive strip edges start to loosen and curl up, you may trim the loose edges. Do not remove adhesive strips completely unless your health care provider tells you to do that. ??? Check your incision area every day for signs of infection. Check for: ? Redness, swelling, or pain. ? Fluid or blood discharge. ? Warmth. ? Pus or a bad smell. General instructions ??? Do coughing and deep breathing exercises as told by your health care provider. It may be helpful to take your pain medicines before doing these exercises. ??? Do not use any products that contain nicotine or tobacco, such as cigarettes and e-cigarettes. If you need help quitting, ask your health care provider. ??? Keep all follow-up visits as told by your health care provider. This is important. Contact a health care provider if: ??? You have redness, swelling, or pain around an incision. ??? You have more fluid or blood coming from an incision. ??? An incision feels warm to the touch. ??? You have pus or a bad smell coming from an incision. ??? You have a fever. ??? An incision breaks open before or after sutures or mali have been removed. Get help right away if: ??? Your catheter stops draining urine. ??? Your abdomen becomes swollen. ??? You develop shortness of breath. ??? You have a lot of bleeding from your incision. ??? You have a high fever that does not go away. ??? You develop pain in your chest, back, or abdomen. ??? You develop pain or swelling in your legs. ??? You suddenly gain weight. Summary ??? After your procedure, it is common to have pain, abdominal discomfort, and nausea. ??? Take rdmb-jgr-rbshvji and prescription medicines only as told by your health care provider. Finish all the prescribed antibiotic medicines, even if you start to feel better. ??? Increase your activity level slowly to prevent blood clots. ??? Follow your health care provider's instructions about how to take care of your incisions. ??? Get help right away if you develop shortness of breath, or if you develop chest pain. This information is not intended to replace advice given to you by your health care provider. Make sure you discuss any questions you have with your health care provider. Document Released: 09/06/2006 Document Revised: 08/11/2017 Document Reviewed: 08/11/2017 [employer] Interactive Patient Education ? 2019 [employer] documented in this encounter Plan of Treatment Upcoming Encounters Date Type Department Care Team (Late st Contact Info) Description 04/16/2026 9:00 AM EDT Office Visit [facility] Cardiothoracic Surgery - [facility] [address] [place] [address] [address] [place] [id number] Tejinder Levy MD [address] [facility] [address] [place] [address] documented as of this encounter Visit Diagnoses Not on filedocumented in this encounter Care Teams Art Display Maker Relationship Specialty Start Date End Date Provider, Not In System [place] PCP - General 07/30/23 08/01/23 López Hazel MD [address] [place] [address] [place] [address] PCP - General Adolescent Medicine 08/02/23 Vic Kaminski MD [address] [facility] [address] [place] [address] Senior Principal Process Engineer Cardiology 03/09/24 Wisam Hartmann Jr., MD [address] [facility] [address] [place] [address] Urologist Urology 03/10/24 Tejinder Levy MD [address] [facility] [address] [place] [address] Surgeon Cardiothoracic Surgery 03/14/24 documented as of this encounter
--- OUTSIDE RECORDS SUMMARY | 2025-04-24 08:03 | XMS_ITS | Encounter Summary ---
Author Organization [employer] ([place], [place], [place], [place]) Address [address] [place] [address] Care Team Providers Care Audio Video Tech Name Role Phone Provider, Not In System Primary Care Provider Un available López Hazel MD Primary Care Provider + [phone] Vic Kaminski MD Unavailable Mary Kate Nance MD, Wisam Viera Unavailable + [phone] Tejinder Levy MD Unavailable +[phone] Encounter Details Date Type Department Care Team (Late st Contact Info) Description 10/03/2019 Transcribed Document [facility] Family Medicine [address] [place] [address] ProviderElias MD [address] [place] [address] Social History Tobacco Use Types Packs/Day Years Used Date Smoking Tobacco: Never Assessed Sex and Gender Information Value Date Recorded Sex Assigned at Male 03/19/2022 5:39 PM CDT Legal Sex Male 6:52 PM CDT Gender Identity Male 03/19/2022 5:39 PM CDT Sexual Orientation Not on file documented as of this encounter Miscellaneous Notes * Cerner Conversion Note - Historical ProviderMD - 10/03/2019 7:29 AM FUR TRAPPER Pre Procedure Adult Entered On: 10/03/2019 7:35 EST Performed On: 10/03/2019 7:29 EST by CHIRINOS, NICOLAS F, RN Height and Weight, Clinical Dosing Height Source : Stated Height Entry Format : [place] Height, Feet : 5 ft(Converted to: 152 cm, 60 Inch) Height, Inches : 11 Inch(Converted to: 0 ft 11 Inch, 27.94 cm) Clinical Height : 180.34 cm Weight Source : Standing scale Weight Entry Format : [place] Clinical Dosing Weight : 96.36 kg Weight, Pounds : 212 lb Body Surface Area (BSA) : 2.16 m2 Body Mass Index : 29.6 kg/m2 (HI) [place] Body Weight : 74 kg NICOLAS CHIRINOS RN - 10/03/2019 7:29 EST Health Histories Smoking Status : Never (less than 100 in lifetime; none in last 30 days) Smokeless Tobacco Status : Never NICOLAS CHIRINOS RN - 10/03/2019 7:29 EST Social History (As Of: 10/03/2019 07:36:00 EST) Tobacco: Never (less than 100 in lifetime) Smoking Status. Never Smokeless Tobacco Status. (Last Updated: 09/26/2019 08:18:58 EST by Nancy Castillo, HOMA) Alcohol: Alcohol Use History No. (Last Updated: 09/26/2019 08:18:58 EST by Nancy Castillo, HOMA) Substance Abuse: Drug Use Hx: No. (Last Updated: 09/26/2019 08:18:58 EST by Nancy Castillo, HOMA) Infectious Disease History Physical contact outside [place] in the last 30 days : No Infectious Disease History : Chicken pox/Shingles, Influenza, Measles, Mumps, Rubella, Pertussis (Whooping cough) Isolation Needed : Standard Tuberculosis Symptoms : None NICOLAS CHIRINOS RN - 10/03/2019 7:29 EST Anesthesia/Transfusion History Family History of Anesthesia Reaction : No prior transfusion(s) Transfusion History : Prior anesthesia without reaction Family History of Anesthesia Reaction : None NICOLAS CHIRINOS RN - 10/03/2019 7:29 EST Functional Assessment Living Situation : Home Patient Lives With : Spouse Persons Assisting Patient at Home : Spouse Current Daily Living Assistance : None Sensory Deficits : None Mobility Assistance Prior to Admission : Independent DUNBAR Hx Falls Immediate/Within 3 Months : No Current Home Treatments : None Home Equipment : None NICOLAS CHIRINOS RN - 10/03/2019 7:29 EST [place] Suicide Severity Rating Scale (C-SSRS) CSSRS Past Month Wish to be : No CSSRS Past Month Suicidal Thoughts : No CSSRS Lifetime Suicide Behavior : No Suicide Severity Rating Score : 0 Suicide Severity Rating : No Additional Care Required at this time NICOLAS CHIRINOS RN - 10/03/2019 7:29 EST Psychosocial History Do You Have a History of the Following? : Patient denies history Currently in Unsafe Situation : NICOLAS Lora RN - 10/03/2019 7:29 EST Advance Directive Patient has Advance Directive *Q : Yes, Advance Directive not with the patient Advance Directive Type : Living will Copy Advance Directive Verified/on Chart : NICOLAS Lora RN - 10/03/2019 7:29 EST Spiritual/Cultural Needs Any Spiritual/Cultural Needs or Requests : NICOLAS Lora RN - 10/03/2019 7:29 EST Teaching/Learning Assessment Barriers To Learning : None evident Individuals Taught : Patient Readiness to Learn : Cooperative Baseline Knowledge of Topic : Good Readiness to Learn : Explanation Learning Style Preferences Patient : Verbal explanation NICOLAS CHIRINOS RN - 10/03/2019 7:29 EST General Info Arrived From : Home Mode of Arrival on Unit : Ambulatory Patient Arrival Date/Time : 10/03/2019 7:00 EST Want Family/Rep/Phys Notified of Admit : No Emergency Contact #1 : [place] Emergency Contact #1 Emergency Contact #1 Relationship : spouse Emergency Contact #2 : [place] Emergency Contact #2 Emergency Contact #2 Relationship : daughter Information Obtained From : Patient Primary Language : Chinese Preferred Communication Mode : Verbal Communication Barrier : None Objects to Sharing Info w Family : NICOLAS Lora RN - 10/03/2019 7:29 EST Vital Measurements Temperature Source : Temporal artery scanning Temperature Mode : Fahrenheit Temperature, Fahrenheit : 97.2 Deg F Clinical Temperature, C : 36.2 Deg C Pulse Method : Pulse Oximetry Respiratory Rate : 18 Breaths/Min Blood Pressure Location : Arm, right upper Blood Pressure Source : Non-Invasive BP Device Systolic Blood Pressure : 137 mmHg Diastolic Blood Pressure : 89 mmHg Oxygen Saturation : 99 % Oxygen Therapy Mode : Room air NICOLAS CHIRINOS RN - 10/03/2019 7:29 EST Sleep Apnea Risk Assmt Hx of Obstructive Sleep Apnea Diagnosis : No Snore Loudly : Yes Tired, Fatigued, or Sleepy During Day : No Observed Stopping Breathing During Sleep : No Have/Are Being Treated for Hypertension : Yes BMI Greater Than 35 kg/m2 : No Age over 50 Years Old : Yes Neck Circumference Greater Than 40 cm : No Gender Male : Yes STOP-BANG Sleep Apnea Risk Level Score : 4 NICOLAS CHIRINOS RN - 10/03/2019 7:29 EST Bobo Scale Bobo Sensory Perception : No impairment Bobo Moisture : Rarely moist Bobo Activity : Walks frequently Bobo Mobility : No limitation Bobo Nutrition : Excellent Bobo Friction and Shear : No apparent problem Bobo Score : 23 NICOLAS CHIRINOS RN - 10/03/2019 7:29 EST Oxygen Therapy Oxygen Therapy Mode : Room air NICOLAS CHIRINOS RN - 10/03/2019 7:29 EST Pain Assessment Pain Assessment : Initial assessment Pain Scale Used : 0-10 Scale NICOLAS CHIRINOS RN - 10/03/2019 7:29 EST Fall Risk Scales ABCs Fall Injury Risk Identification : None DUNBAR Hx Falls Immediate/Within 3 Months : No Dunbar Secondary Diagnosis : No DUNBAR Use of Ambulatory Aid : None DUNBAR IV Therapy or IV Access : Yes Dunbar Gait/Transferring : Normal, bedrest, immobile Dunbar Mental Status : Oriented to own ability Dunbar Fall Risk Score : 20 DUNBAR Fall Scale Risk Level : 0-24 Low Risk [place] Fall Interventions : Call device within reach, Hourly comfort/safety rounds, Non-slip footwear, Personal items within reach, Upper side-rails up, Wheels locked NICOLAS CHIRINOS RN - 10/03/2019 7:29 EST Fall Risk Education Grid Nonskid Footwear Use : Verbalizes understanding NICOLAS CHIRINOS RN - 10/03/2019 7:29 EST Barriers to Learning : None evident Individuals Taught : Patient Readiness to Learn : Cooperative Baseline Knowledge of Topic : Good Teaching Method : Explanation Learning Style Preferences Patient : Verbal explanation Teaching Evaluation : Verbalizes understanding NICOLAS CHIRINOS RN - 10/03/2019 7:29 EST Education Topics, Day of Surgery DayofSurgery Education Grid Anesthesia/Sedation : Verbalizes understanding IV's : Verbalizes understanding Medication Instructions : Verbalizes understanding Pain Management : Verbalizes understanding NICOLAS CHIRINOS RN - 10/03/2019 7:29 EST Valuables and Belongings Valuables and Belongings : Clothing, Personal devices Clothing : Common streetwear Clothing Disposition : With family Personal Device Disposition : With family Personal Devices : Dentures, upper, Dentures, lower, Glasses NICOLAS CHIRINOS RN - 10/03/2019 7:29 EST Pain Scale Intensity : 0 NICOLAS CHIRINOS RN - 10/03/2019 7:29 EST Image 4 - Images currently included in the form version of this document have not been included in the text rendition version of the form. documented in this encounter Plan of Treatment Upcoming Encounters Date Type Department Care Team (Late st Contact Info) Description 04/16/2026 9:00 AM EDT Office Visit [facility] Cardiothoracic Surgery - [address] [place] [address] Tejinder Levy MD [address] [place] [address] [address] [place], [place] [id number] documented as of this encounter Visit Diagnoses Not on filedocumented in this encounter Care Teams Audio Video Tech Relationship Specialty Start Date End Date Provider, Not In System [place] PCP - General 07/30/23 08/01/23 López Hazel MD [address] [place] [address] [place] [address] PCP - General Adolescent Medicine 08/02/23 Vic Kaminski MD [address] [facility] [address] [place], [place] [id number] Certified Endoscopy Technician Cardiology 03/09/24 [place] [address] [place] [address] [address] [place], [place] [id number] Urologist Urology 03/10/24 [place] [address] [place] [address] [address] [place], [place] [id number] Surgeon Cardiothoracic Surgery 03/14/24 documented as of this encounter
--- OUTSIDE RECORDS SUMMARY | 2025-04-24 08:03 | XMS_ITS | Referral Summary ---
Author Organization [employer] ([place], [place], [place], [place]) Address [address] [place] [address] Care Team Providers Care Web Development Intern Name Role Phone López Hazel MD Primary Care Provider + [phone] Vic Kaminski MD Unavailable [phone] Mary Kate Nance MD, [facility] Unavailable + [phone] Tejinder Levy MD Unavailable [phone] Encounters Date Type Department Care Team Description 04/10/2025 Orders Only [facility] Cardiothoracic Surgery [address] [address] Kaitlynn Verma CMA Ascending aortic aneurysm (HCC) (Primary Dx) 04/10/2025 9:00 AM EDT Office Visit [facility] Cardiothoracic Surgery [address] [address] Tejinder Levy MD Ascending aortic aneurysm (HCC) (Primary Dx) 04/03/2025 Travel 04/03/2025 8:50 AM EDT - 04/03/2025 11:59 PM EDT Hospital Encounter [facility] Imaging [address] [place] [address] Tejinder Levy MD Ascending aorta dilation (HCC) Discharge Disposition: Home or Self Care 04/02/2025 Orders Only [facility] Cardiothoracic Surgery - [address] [facility] [address] [address] Kaitlynn Verma CMA Ascending aorta dilation (HCC) (Primary Dx) from Last 3 Months Allergies No known active allergies Medications aspirin 81 MG EC tablet Take 1 tablet (81 mg total) by mouth 2 (two) times daily. Active atenoloL (TENORMIN) 25 MG tablet Take 1 tablet (25 mg total) by mouth daily. Active lisinopriL (PRINIVIL,ZESTRI L) 10 MG tablet Take 2 tablets (20 mg total) by mouth daily. Active rosuvastatin (CRESTOR) 20 MG tablet Take 1 tablet (20 mg total) by mouth daily. 01/09/2024 Active isosorbide mononitrate (IMDUR) 60 MG 24 hr tablet Take 1 tablet (60 mg total) by mouth every morning. 01/11/2024 Active levothyroxine (SYNTHROID, LEVOTHROID) 100 MCG tablet Take 1 tablet (100 mcg total) by mouth daily. 01/06/2024 Active Lactobac no.41/Bifidobact no.7 (PROBIOTIC-10 ORAL) Take 1 capsule by mouth daily. Active multivitamin per tablet Take 1 tablet by mouth daily. Active ascorbic acid, vitamin C, (vitamin C) 1000 MG tablet Take 1 tablet (1,000 mg total) by mouth daily. Active magnesium citrate solution Take 296 mLs by mouth once. Active Active Problems Problem Noted Date Diagnosed Date Aortic root dilation 03/01/2024 Ascending aorta dilation 03/01/2024 HTN (hypertension) 03/01/2024 Mitral regurgitation 03/01/2024 Tricuspid regurgitation 03/01/2024 CAD (coronary artery disease) 03/01/2024 Overview (03/01/2024): CAD w/ totally occluded LAD collateralized from diagonal branch. Social History Tobacco Use Types Packs/Day Years [...] Date David rded Speak language other than Stateless at home Not on file 10/01/2023 Want [...] PM CDT Sexual Orientation Not on file Last Filed Vital Signs Vital Sign Reading Time Taken Comments Blood Pressure 136/70 04/10/2025 8:53 AM EDT Pulse 64 04/10/2025 8:53 AM EDT Temperature 37.1 C (98.7 F) 04/04/2024 9:48 AM EDT Respiratory Rate 18 03/21/2024 7:15 AM EDT Oxygen Saturation 94% 04/10/2025 8:53 AM EDT Inhaled Oxygen Concentration - - Weight 102.5 kg (226 lb) 04/10/2025 8:53 AM EDT Height 180.3 cm (5' 11 ) 04/10/2025 8:53 AM EDT Body Mass Index 31.52 04/10/2025 8:53 AM EDT Plan of Treatment Upcoming Encounters Date Type Department Care Team (Late st Contact Info) Description 04/16/2026 9:00 AM EDT Office Visit [facility] Cardiothoracic Surgery [facility] [address] [place] [address] [address] [place] [address] [place] [address] [place] [address] [address] [place] [address] Procedures Procedure Name Priority Date/Time Associated Diagnosis Comments CTA CHEST Routine 04/03/2025 9:39 AM EDT Ascending aorta dilation (HCC) POCT-CREATININE NOVA Routine 04/03/2025 9:27 AM EDT from Last 3 Months Results * CTA chest (04/03/2025 9:39 AM [...] POC-Creatinine 0.8 mg/dL 04/03/2025 9:29 AM EDT [facility] POC-EGFR >60 mL/min/1. 73M2 04/03/2025 9:29 AM EDT [facility] Comment:Proceed with contras t if eGFR > 45 ml/min/1.73 when performed on the NovaSTAT strip Creatinine meter. Climbing Guide FRED RODRIGUEZ 04/03/2025 9:29 AM EDT [facility] Blood 04/03/2025 9:27 AM EDT 04/03/2025 9:29 AM EDT Narrative [facility] - 04/03/2025 9:29 AM EDT Climbing Guide ID is - [id number] Tejinder Levy MD POINT OF CARE TEST ORDERA BLES Final Result [facility] [address] [place] [address], [facility] [phone] from Last 3 Months Insurance [id number] [id number] MEDICARE PART A B /[place] Advance Directives For more information, please contact: [phone] * Full Code (Latest Code Status on File) Date Activated Date Inactivated Comments 07/30/2023 8:29 AM 07/31/2023 4:26 AM Care Teams Web Development Intern Relationship Specialty Start Date End Date López Hazel MD [address] [place] [address] [place] [address] PCP - General Adolescent Medicine 08/02/23 Vic Kaminski MD [address] [facility] [address] [place] [address] Mc Kay Stitcher Cardiology 03/09/24 [place] [address] [place] [address] [address] [place], [place] [id number] Urologist Urology 03/10/24 [place] [address] [place] [address] [address] [place], [place] [id number] Surgeon Cardiothoracic Surgery 03/14/24
--- OUTSIDE RECORDS SUMMARY | 2025-04-24 08:03 | XMS_ITS | Encounter Summary ---
Author Organization [facility] Address [address] [id number] Care Team Providers Care Parent Coach Name Role Phone López Hazel MD Primary Care Provider + [phone] Reason for Visit * Reason Onset Date Comments Med Refill 03/19/2025 Encounter Details Date Type Department Care Team (Late st Contact Info) Description 03/19/2025 Refill [facility] CARDIOLOGY [address] [facility] [address] [place] [id number] Vic Miner MD [address] [facility] [address] [place] [id number] Med Refill Social History Tobacco Use Types Packs/Day Years Used Date Smoking Tobacco: Never Smokeless Tobacco: Never Alcohol Use Standard Drinks/Week Comments Never 0 (1 standard drink = 0.6 oz pur e alcohol) Sex and Gender Information Value Date Recorded Sex Assigned at Not on file Legal Sex Male 12:21 PM EST Gender Identity Not on file Sexual Orientation Not on file documented as of this encounter Miscellaneous Notes * Telephone Encounter - Jg Cristina MA - 03/19/2025 3:34 PM EDT Rx Refill Note Requested Prescriptions Signed Prescriptions Disp Refills rosuvastatin (CRESTOR) 20 MG tablet 90 tablet 0 Sig: Take 1 tablet by mouth Daily. Authorizing Provider: VIC MINER Ordering User: JG CRISTINA Last office visit with prescribing clinician: 01/25/2025 Last telemedicine visit with prescribing clinician: Visit date not found Next office visit with prescribing clinician: 04/30/2025 Pharmacy Info Last Fill Date: Rx Written Date: Prescribed Qty: Additional Details from Pharmacy: Patient passed protocols per monserrat. Jg Cristina MA 03/19/25, 15:34 EDT documented in this encounter Plan of Treatment Upcoming Encounters Date Type Department Care Team (Late st Contact Info) Description 04/30/2025 9:45 AM EDT Office Visit [facility] CARDIOLOGY [address] [facility] [address] [place] [address] Vic Miner MD [address] [facility] [address] [place] [address] documented as of this encounter Visit Diagnoses Not on filedocumented in this encounter Care Teams Parent Coach Relationship Specialty Start Date End Date López Hazel MD [address] [facility] [address] [place] [address] PCP - General Adolescent Medicine 10/25/24 documented as of this encounter
--- OUTSIDE RECORDS SUMMARY | 2025-04-24 08:03 | XMS_ITS | Encounter Summary ---
Author Organization [employer] ([place], [place], [place], [place]) Address [address] [place] [address] Care Team Providers Care Tin Plater Name Role Phone Provider, Not In System Primary Care Provider Un available López Hazel MD Primary Care Provider + [phone] Vic Kaminski MD Unavailable [phone] Mary Kate Nance MD, Wisam Viera Unavailable + [phone] Tejinder Levy MD Unavailable [phone] Encounter Details Date Type Department Care Team (Late st Contact Info) Description 10/05/2019 Transcribed Document [facility] [place] [facility] [address] ProviderElias MD [address] [place] [address] Social History Tobacco Use Types Packs/Day Years Used Date Smoking Tobacco: Never Assessed Sex and Gender Information Value Date Recorded Sex Assigned at Male 03/19/2022 5:39 PM CDT Legal Sex Male 6:52 PM CDT Gender Identity Male 03/19/2022 5:39 PM CDT Sexual Orientation Not on file documented as of this encounter Miscellaneous Notes * Cerner Conversion Note - Historical ProviderMD - 10/05/2019 5:00 AM SPEECH PATHOLOGY ASSISTANT Chart Check - Review Order Profile Entered On: 10/05/2019 4:11 EST Performed On: 10/05/2019 5:00 EST by Gordon Montalvo, RN Chart Check Powerplans Initiated/Discontinued as Appropriate : Yes All Active Orders Reviewed : Yes Gordon Montalvo, RN - 10/05/2019 4:11 EST documented in this encounter Plan of Treatment Upcoming Encounters Date Type Department Care Team (Late st Contact Info) Description 04/16/2026 9:00 AM EDT Office Visit [facility] Cardiothoracic Surgery - [facility] [address] [facility] [address] [place] [id number] [place] [address] [place] [address] [address] [place], [place] [id number] documented as of this encounter Visit Diagnoses Not on filedocumented in this encounter Care Teams Tin Plater Relationship Specialty Start Date End Date Provider, Not In System [place] PCP - General 07/30/23 08/01/23 López Hazel MD [address] [facility] [address] [place] [address] PCP - General Adolescent Medicine 08/02/23 Vic Kaminski MD [address] [facility] [address] [place], [place] [id number] Nurses Director Cardiology 03/09/24 [place] [address] [place] [address] [address] [place] [address] Urologist Urology 03/10/24 [place] [address] [place] [address] [address] [place], [place] [id number] Surgeon Cardiothoracic Surgery 03/14/24 documented as of this encounter
--- OUTSIDE RECORDS SUMMARY | 2025-04-24 08:03 | XMS_ITS | Clinical Summary ---
Author Organization [facility] Address [address] [place] [address] Care Team Providers Care Egg Breaking Machine Operator Name Role Phone López Hazel MD Primary Care Provider + [phone] Allergies No known active allergies Medications aspirin 81 MG EC tablet Take 1 tablet by mouth Daily. Active levothyroxine (SYNTHROID, LEVOTHROID) 100 MCG tablet Take 1 tablet by mouth Daily. 10/11/2024 Active lisinopril (PRINIVIL,ZESTRI L) 20 MG tablet Take 1 tablet by mouth Daily. 10/13/2024 Active Multi-Vitamin tablet tablet Take 1 tablet by mouth Daily. Active nitroglycerin (NITROSTAT) 0.3 MG SL tablet 1 under the tongue as needed for angina, may repeat q5mins for up three doses 100 tablet 11 10/27/2024 Active atenolol (TENORMIN) 25 MG tablet Take 1 tablet by mouth Daily. 90 tablet 1 12/05/2024 Active Magnesium 400 MG tablet Take 1 tablet by mouth Daily. Active ascorbic acid (VITAMIN C) 1000 MG tablet Take 1 tablet by mouth Daily. Active Probiotic Product (PROBIOTIC ADVANCED PO) Take 1 tablet by mouth Daily. 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 90 tablet 1 01/25/2025 Active rosuvastatin (CRESTOR) 20 MG tablet Take 1 tablet by mouth Daily. 90 tablet 03/19/2025 Active Active Problems Problem Noted Date Diagnosed Date Coronary artery disease of n ative artery of ho-chunk heart with stable angina pectoris 01/24/2025 Assessment & Plan (01/25/2025 10:17 AM EDT): Coronary Artery Disease (OPTIONAL): Coronary artery disease is stable. Continue current treatment regimen. Dietary sodium restriction. Weight loss. Cardiac status will be reassessed in 3 months. Discussed with continue Aspirin. Orders: isosorbide mononitrate (IMDUR) 60 MG 24 hr tablet; Take 1 tablet by mouth Every Morning. CBC & Differential; Future Basic Metabolic Panel; Future Lipid Panel; Future Benign essential hypertension 01/24/2025 Assessment & Plan (01/25/2025 10:17 AM EDT): Hypertension is stable and controlled Continue current treatment regimen. Dietary sodium restriction. Weight loss. Ambulatory blood pressure monitoring. Blood pressure will be reassessed in 3 months. Continue lisinopril 20 mg once a day and atenolol 25 mg once a day. Would recommend changing it later to metoprolol or bisoprolol. Orders: isosorbide mononitrate (IMDUR) 60 MG 24 hr tablet; Take 1 tablet by mouth Every Morning. CBC & Differential; Future Basic Metabolic Panel; Future Lipid Panel; Future Hyperlipidemia LDL goal <70 01/24/2025 Assessment & Plan (01/25/2025 10:17 AM EDT): Lipid abnormalities are stable Plan: Continue same medication/s without change. Discussed medication dosage, use, side effects, and goals of treatment in detail. Counseled patient on lifestyle modifications to help control hyperlipidemia. Advised patient to exercise for 150 minutes weekly. (30 minute brisk walk, 5 days a week for example) Patient Treatment Goals: LDL goal is less than 70 Followup in 3 months. Continue rosuvastatin 20 mg once a day Orders: isosorbide mononitrate (IMDUR) 60 MG 24 hr tablet; Take 1 tablet by mouth Every Morning. CBC & Differential; Future Basic Metabolic Panel; Future Lipid Panel; Future Ascending aortic aneurysm 10/26/2024 Assessment & Plan (01/25/2025 10:17 AM EDT): We will continue to follow the aneurysm with CT scan every year. Discussed with patient 1 the surgery would be needed and if develop any symptoms would notify emergently or call 911. Ashwin has appointment with Dr Landa in March and has CT scan ordered. Orders: isosorbide mononitrate (IMDUR) 60 MG 24 hr tablet; Take 1 tablet by mouth Every Morning. CBC & Differential; Future Basic Metabolic Panel; Future Lipid Panel; Future Assessment & Plan (10/27/2024 11:07 AM EST): The patient has follow-up with in March 2025. He will also have repeat CT scan to evaluate the aneurysm. The patient will continue atenolol and lisinopril to keep the blood pressure under control. Will do CBC and BMP in 3 months. 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 (Primary Dx); Aneurysm of ascending aorta without rupture; Benign essential hypertension; Hyperlipidemia LDL goal <70 01/25/2025 Patient rounding [place] [place] [facility] [address] [place] [address] [address] [place] [address] Vic Kaminski MD 01/25/2025 Travel from Last 3 Months Family History Medical History Relation Name Comments Coronary artery disease Father Coronary artery disease Mother Relation Name Status Comments Father Mother Social History Tobacco Use Types Packs/Day Years Used Date Smoking Tobacco: Never Smokeless Tobacco: Never Tobacco Cessation:Counseling Given: Not Answered Alcohol Use Standard Drinks/Week Comments Never 0 (1 standard drink = 0.6 oz pur e alcohol) Sex and Gender Information Value Date Recorded Sex Assigned at Not on file Legal Sex Male 12:21 PM EST Gender Identity Not on file Sexual Orientation Not on file Last Filed Vital Signs Vital Sign Reading Time Taken Comments Blood Pressure 110/62 01/25/2025 9:49 AM EDT Pulse 62 01/25/2025 9:49 AM EDT Temperature - - Respiratory Rate - - Oxygen Saturation - - Inhaled Oxygen Concentration - - Weight 100 kg (221 lb) 01/25/2025 9:49 AM EDT Height 180.3 cm (5' 11 ) 01/25/2025 9:49 AM EDT Body Mass Index 30.82 01/25/2025 9:49 AM EDT Plan of Treatment Upcoming Encounters Date Type Department Care Team (Late st Contact Info) Description 04/30/2025 9:45 AM EDT Office Visit [facility] [address] [facility] [address] [place] [phone] Vic Kaminski MD [address] [facility] [address] [place] [address] Health Maintenance Due Date Last Done Comments Pneumococcal Vaccine 50+ (1 of 2 - PCV) 1968 08/20/2019 COLOGUARD 1994 COLON CANCER SCREENING 5 YEA R SIGMOIDOSCOPY 1994 CT COLONOGRAPHY 1994 FECAL OCCULT BLOOD TEST 1994 FIT Testing (1 year) 1994 ANNUAL WELLNESS VISIT 10/06/2024 HEPATITIS C SCREENING 10/06/2024 RSV Vaccine - Adults (1 - 1- dose 75+ series) 2024 COVID-19 Vaccine (2023-2 5 season) 2025 07/31/2024, 09/01/2023, 06/17/2022, Additional history exists INFLUENZA VACCINE 06/20/2025 07/31/2024, , 08/04/2022, Additional history exists LIPID PANEL 01/19/2026 01/19/2025 COLONOSCOPY 06/26/2029 06/26/2019 COLORECTAL CANCER SCREENING 06/26/2029 TDAP/TD VACCINES (3 - Td or Tdap) 12/22/2032 023, 11/25/1996 ZOSTER VACCINE Completed 06/11/2023, 01/16/2023 Procedures Procedure Name Priority Date/Time Associated Diagnosis Comments LIPID PANEL Routine 01/19/2025 1:16 PM EDT Hyperlipidemia, mixed from Last 3 Months or Most Recently Relevant to Health Maintenance Results * Lipid Panel (01/19/2025 1:16 PM EDT) Blood Vic Kaminski MD LAB BLOOD ORDERABLES Final Resu lt [facility]
[address] [place] [address], from Last 3 Months or Most Recently Relevant to Health Maintenance Insurance [place] [id number] MEDICARE A & B Member Subscriber Plan / Payer (Ef fective 2014-Present) Name:Edwin Guzman Member ID:[id number] Relation to Subscriber:Self Name:Edwin Guzman Subscriber ID:[id number] Payer ID:[id number] Group ID:Not on file Type:Not on file Address: [facility] [id number] Care Teams Egg Breaking Machine Operator Relationship Specialty Start Date End Date López Hazel MD [address] [place] [id number] PCP - General Adolescent Medicine 10/25/24
--- OUTSIDE RECORDS SUMMARY | 2025-04-24 08:03 | XMS_ITS | Clinical Summary ---
Author Organization [employer] ([place], [place], [place], [place]) Address [address] [place] [address] Care Team Providers Care Registered Dietetic Technician Name Role Phone López Hazel MD Primary Care Provider + [phone] Vic Kaminski MD Unavailable [phone] Mary Kate Nance MD, [facility] Unavailable + [phone] Tejinder Levy MD Unavailable [phone] Allergies No known active allergies Medications aspirin [...] totally occluded LAD collateralized from diagonal branch. Encounters Date Type Department Care Team Description 04/10/2025 9:00 AM EDT Office Visit [facility] Cardiothoracic Surgery [address] [phone] Tejinder Levy MD Ascending aortic aneurysm (HCC) (Primary Dx) 04/10/2025 Orders Only [facility] Cardiothoracic Surgery [address] [address] Kaitlynn Verma CMA Ascending aortic aneurysm (HCC) (Primary Dx) 04/03/2025 8:50 AM EDT - 04/03/2025 11:59 PM EDT Hospital Encounter [facility] [address] [place] [phone] Tejinder Levy MD Ascending aorta dilation (HCC) Discharge Disposition: Home or Self Care 04/03/2025 Travel 04/02/2025 Orders Only [facility] Cardiothoracic Surgery [address] [address] Kaitlynn Verma CMA Ascending aorta dilation (HCC) (Primary Dx) from Last 3 Months Family History Medical History Relation Name Comments Abnormal EKG Brother 1 Negro Rob Guzman Angina Brother 1 Negro C [place] Heart attack Brother 1 Negro C [place] Heart disease Brother 1 Negro C [place] Heart attack Brother 2 Yoel Guzman Sudden Brother 2 Yoel Guzman Abnormal EKG Father Negro Guzman Angina Father Negro Guzman Coronary artery disease Father Negro Guzman Heart attack Father Negro Guzman Heart disease Father Negro Guzman Hypertension Father Negro Guzman Angina Mother Aruna Guzman Coronary artery disease Mother Aruna Guzman Heart attack Mother Aruna Guzman Hypertension Mother Aruna Guzman Sudden Mother Aruna Guzman Relation Name Status Comments Brother 1 Negro Guzman Brother 2 Yoel Guzman Father Negro Guzman Mother Aruna Guzman Social History Tobacco Use Types Packs/Day Years [...] Date David rded Speak language other than [place]er at home Not on file 10/01/2023 Want [...] Description 04/16/2026 9:00 AM EDT Office Visit [facility] Cardiothoracic Surgery - [address] [facility] [address] [place] [address] Tejinder Levy MD [address] [facility] [address] [place] [address] Health Maintenance Due Date Last Done Comments CT Colonography 1950 Colonoscopy 1950 Colorectal Cancer Screening 1950 FOBT/FIT 1950 Fit-DNA (Cologuard) 1950 Sigmoidoscopy 1950 Depression Screening (12+) 1961 Hepatitis C Screening 12/03/1967 Pneumococcal 50+ years (1 of 2 - PCV) 1968 Medicare Initial AWV G0438 11/20/2015 COVID-19 VACCINE (6 - 2023-2 5 season) 2024 06/17/2022, 02/05/2022, 08/06/2021, Additional history exists Falls Risk Screening 09/20/2024 Respiratory Syncytial Virus (RSV) Adult or (1 - 1-dose 75+ series) 2024 Influenza Vaccine (#1) 2025 , 07/17/2021, 07/15/2020, Additional history exists Tobacco Cessation Counseling and Screening (12+) 04/10/2026 04/10/2025 DTAP/TDAP/TD VACCINES (3 - T d or Tdap) 12/22/2032 12/22/2022, 11/25/1996 Shingles Vaccine (Zoster) Completed 06/11/2023, Procedures Procedure Name Priority Date/Time Associated Diagnosis [...] POC-Creatinine 0.8 mg/dL 04/03/2025 9:29 AM EDT [facility] POC-EGFR >60 mL/min/1. 73M2 04/03/2025 9:29 AM EDT [facility] Comment:Proceed with contras t if eGFR > 45 ml/min/1.73 when performed on the NovaSTAT strip Creatinine meter. Technology Project Manager FRED RODRIGUEZ 04/03/2025 9:29 AM EDT [facility] Blood 04/03/2025 9:27 AM EDT 04/03/2025 9:29 AM EDT Narrative [facility] - 04/03/2025 9:29 AM EDT Technology Project Manager ID is - [id number] Tejinder Levy MD POINT OF CARE TEST ORDERA BLES Final Result [facility] [address] [phone] from Last 3 Months Insurance [place] [id number] MEDICARE PART A B CROSS/BLUE SHIELD Advance Directives For more information, please contact: [phone] * Full Code (Latest Code Status on File) Date Activated Date Inactivated Comments 07/30/2023 8:29 AM 07/31/2023 4:26 AM Care Teams Registered Dietetic Technician Relationship Specialty Start Date End Date López Hazel MD [address] [place] [address] [place] [address] PCP - General Adolescent Medicine 08/02/23 Vic Kaminski MD [address] [facility] [address] [place], [place] [id number] Senior Architectural Designer Cardiology 03/09/24 Wisam Hartmann Jr., MD [address] [facility] [address] [place] [address] Urologist Urology 03/10/24 Tejinder Levy MD [address] [place] [address] Surgeon Cardiothoracic Surgery 03/14/24
--- OUTSIDE RECORDS SUMMARY | 2025-04-24 08:03 | XMS_ITS | Encounter Summary ---
Author Organization [employer] ([place], [place], [place], [place]) Address [address] [place] [address] Care Team Providers Care Feller Seam Operator Name Role Phone Provider, Not In System Primary Care Provider Un available López Hazel MD Primary Care Provider + [phone] Vic Kaminski MD Unavailable Mary Kate Nance MD, Thomas K Unavailable + [phone] Tejinder Levy MD Unavailable [phone] Encounter Details Date Type Department Care Team (Late st Contact Info) Description 10/05/2019 Transcribed Document [facility] [place] [address] ProviderElias MD [address] [place] [address] Social History Tobacco Use Types Packs/Day Years Used Date Smoking Tobacco: Never Assessed Sex and Gender Information Value Date Recorded Sex Assigned at Male 03/19/2022 5:39 PM CDT Legal Sex Male 6:52 PM CDT Gender Identity Male 03/19/2022 5:39 PM CDT Sexual Orientation Not on file documented as of this encounter Miscellaneous Notes * Cerner Conversion Note - Historical ProviderMD - 10/05/2019 5:47 AM CHEMICAL TREATMENT PLANT TECHNICIAN Patient: EDWIN GUZMAN Age: 68 years Sex: Male : 1950 Associated Diagnoses: None Author: WISAM HARTMANN JR, MD-URO Doing well Reports flatus Abd benign urine clear in tubing Home today with cath Remove RAS drain Electronically signed by Mindi [facility] Conversion Dye House Worker Cerner at 01/06/2023 11:31 AM CDT documented in this encounter Plan of Treatment Upcoming Encounters Date Type Department Care Team (Late st Contact Info) Description 04/16/2026 9:00 AM EDT Office Visit [facility] Cardiothoracic Surgery - [facility] [address] [place] [address] [address] [place] [phone] [place] [address] [place] [address] [address] [place] [address] documented as of this encounter Visit Diagnoses Not on filedocumented in this encounter Care Teams Feller Seam Operator Relationship Specialty Start Date End Date Provider, Not In System [place] PCP - General 07/30/23 08/01/23 López Hazel MD [address] [facility] [address] [place] [address] PCP - General Adolescent Medicine 08/02/23 Vic Kaminski MD [address] [facility] [address] [place], [place] [phone] Clothing Consultant Cardiology 03/09/24 [place] [address] [place] [address] [address] [place] [address] Urologist Urology 03/10/24 [place] [address] [place] [address] [address] [place], [place] [phone] Surgeon Cardiothoracic Surgery 03/14/24 documented as of this encounter
--- OUTSIDE RECORDS SUMMARY | 2025-04-24 08:03 | XMS_ITS | Encounter Summary ---
Author Organization [employer] ([place], [place], [place], [place]) Address [address] [place] [address] Care Team Providers Care Eyelet Row Marker Name Role Phone Provider, Not In System Primary Care Provider Un available López Hazel MD Primary Care Provider + [phone] Vic Kaminski MD Unavailable [phone] Mary Kate Nance MD, Thomas K Unavailable + [phone] Tejinder Levy MD Unavailable [phone] Encounter Details Date Type Department Care Team (Late st Contact Info) Description 10/05/2019 Transcribed Document [facility] [place] [facility] [place] [address] ProviderElias MD [address] [place] [address] Social History Tobacco Use Types Packs/Day Years Used Date Smoking Tobacco: Never Assessed Sex and Gender Information Value Date Recorded Sex Assigned at Male 03/19/2022 5:39 PM CDT Legal Sex Male 6:52 PM CDT Gender Identity Male 03/19/2022 5:39 PM CDT Sexual Orientation Not on file documented as of this encounter Miscellaneous Notes * Cerner Conversion Note - Historical ProviderMD - 10/05/2019 8:22 AM CONTINUOUS LINTER DRIER OPERATOR Patient: EDWIN GUZMAN Age: 68 years Sex: Male : 1950 Associated Diagnoses: None Author: ALFREDA WEAVER DO Results Review Admission Date: Admit Date 10/03/2019 15:50 Discharge Date: 10/05/19 Discharge Information discharge to home Physical Examination VS/Measurements Vitals Signs (last 24 hrs) Last Charted Minimum Maximum Temp 98.6 (OCT 05 05:38) 98 (OCT 04 09:05) 98 (OCT 04 09:05) Mon HR 72 (OCT 05 05:38) 60 (OCT 04 23:21) 72 (OCT 05 05:38) Resp Rate 16 (OCT 05 05:38) 16 (OCT 04 17:57) 20 (OCT 04 09:05) SBP H 141 (OCT 05 05:38) 112 (OCT 04 23:21) H 144 (OCT 04 09:05) DBP 89 (OCT 05 05:38) 67 (OCT 04 17:57) 89 (OCT 05 05:38) MAP 99 (OCT 05 05:38) 81 (OCT 04 23:21) 99 (OCT 05 05:38) SpO2 95 (OCT 05 05:38) 94 (OCT 04 23:21) 98 (OCT 04 09:05) awake, alert, pleasant, heart RRR, lungs CTA, abd lap sites CDI. howe in place draining clear urine. Hospital Course Significant labs/imaging: No Radiology Results Found CBC Results (Current Encounter/Past 24 Hours) WBC 13.5 K/uL HI 10/05/2019 04:23 Hct 36.5 % LOW 10/05/2019 04:23 Hgb 12.3 Gram/dL LOW 10/05/2019 04:23 Platelet Count 222 K/uL 10/05/2019 04:23 CMP Results (Current Encounter/Past 24 Hours) Bun/Creatinine 11.8 10/05/2019 04:28 eGFR NonAfrican >60 mL/min/1.73m2 10/05/2019 04:28 Creatinine Level 0.93 mg/dL 10/05/2019 04:28 eGFR >60 mL/min/1.73m2 10/05/2019 04:28 Sodium Level 143 mmol/L 10/05/2019 04:28 Potassium Level 3.9 mmol/L 10/05/2019 04:28 Chloride Level 110 mmol/L 10/05/2019 04:28 Carbon Dioxide Level 27 mmol/L 10/05/2019 04:28 Anion Gap 10 10/05/2019 04:28 Blood Urea Nitrogen 11 mg/dL 10/05/2019 04:28 Glucose Level 99 mg/dL 10/05/2019 04:28 Calcium Level 7.7 mg/dL LOW 10/05/2019 04:28 Consultants: dr wisam diallo jr Procedures: Procedures Prostatectomy Radical Robotic (Checked In) 10/03/2019 09:30 PAT for Surgery (Checked In) 09/26/2019 08:00 Problem List: essential htn - continue home meds hypothyroidism - pt clinically euthyroid - continue levothyroxine prostate cancer - s/p Robotic-assisted laparoscopic radical prostatectomy with nerve sparing with Dr Diallo 10/03 - howe on dc - passed gas on 10/05 - pain control hospital course: Mr. Guzman is a 68 year old male with history of HTN and hypothyroidism who was recently diagnosed with prostate cancer he presented to [facility] for radical prostatectomy with nerve sparing with Dr Diallo. He underwent procedure and tolerated it well. Diet was slowly advanced and pain remained controlled. He passed gas on 10/05 and is being discharged to home on 10/05. Discharge Activity Special Instructions - per urology recommendations. Discharge Plan Discharge Summary Plan Discharge Status: stable. Discharge instructions given: to patient. Prescriptions: Home Medications (8) Active atenolol 25 mg oral tablet 25 mg = 1 Tab, Oral, Daily Colace 100 mg oral capsule 100 mg = 1 Cap, Oral, BID levothyroxine 100 mcg (0.1 mg) oral tablet 100 mcg = 1 Tab, Oral, Daily lisinopril 10 mg oral tablet 10 mg = 1 Tab, Oral, Daily Macrobid 100 mg oral capsule 100 mg = 1 Cap, Oral, BID MiraLax oral powder for reconstitution 17 Gram, Oral, Daily multivitamin 1 Tab, Oral, Daily Bradford 7.5 mg-325 mg oral tablet 1 Tab, PRN, Oral, Q4H . Time spent on discharge: 25 min Alfreda Lundberg Hospitalist documented in this encounter Plan of Treatment Upcoming Encounters Date Type Department Care Team (Late st Contact Info) Description 04/16/2026 9:00 AM EDT Office Visit [facility] Cardiothoracic Surgery - [address] [facility] [address] [place] [phone] Tejinder Levy MD [address] [facility] [address] [place] [address] documented as of this encounter Visit Diagnoses Not on filedocumented in this encounter Care Teams Eyelet Row Marker Relationship Specialty Start Date End Date Provider, Not In System [place] PCP - General 07/30/23 08/01/23 López Hazel MD [address] [place] [address] PCP - General Adolescent Medicine 08/02/23 Vic Kaminski MD [address] [facility] [address] [place], [place] [phone] Supervisor Photocomposition Cardiology 03/09/24 Wisam Diallo Jr., MD [address] [facility] [address] [place], [place] [id number] Urologist Urology 03/10/24 Tejinder Levy MD [address] [facility] [address] [place] [address] Surgeon Cardiothoracic Surgery 03/14/24 documented as of this encounter
--- OUTSIDE RECORDS SUMMARY | 2025-04-24 08:03 | XMS_ITS | Encounter Summary ---
Author Organization [employer] ([place], [place], [place], [place]) Address [address] [place] [address] Care Team Providers Care Middle School Humanities Teacher Name Role Phone Provider, Not In System Primary Care Provider Un available López Hazel MD Primary Care Provider + [phone] Vic Kaminski MD Unavailable [phone] Mary Kate Nance MD, Wisam Viera Unavailable + [phone] Tejinder Levy MD Unavailable [phone] Reason for Referral * CAT Scan (Routine) - Closed Specialty Diagnoses / Procedures Referred By Contjose t Referred To Contact Radiology Diagnoses Ascending aortic aneurysm, unspecified whether ruptured (HCC) Procedures CT chest without IV contrast Vic Kaminski MD [address] [place] [address] Phone: tel: fax: Referral ID Status Reason Start Date Expiration Date Visits Re quested Visits Authorized [id number] Closed 07/28/2023 01/24/2024 1 1 Encounter Details Date Type Department Care Team (Late st Contact Info) Description 07/28/2023 Outside Orders [facility] Central Scheduling [address] [place] [address] Vic Kaminski MD [address] [place] [address] Ascending aortic aneurysm, unspecified whether ruptured (HCC) (Primary Dx) Social History Tobacco Use Types Packs/Day Years Used Date Smoking Tobacco: Never Assessed Family and Community Support Answer Sergio e Recorded Help with Day to Day Activities Not on file 10/01/2023 Feeling Lonely or Isolated Not on file 10/01 Educational Attainment Answer Date David rded Speak language other than Moroccan at home Not on file 10/01/2023 Want [...] PM CDT Sexual Orientation Not on file COVID-19 Exposure Response Date Recorded In the last 10 days, have yo u been in contact with someone who was confirmed or suspected to have Coronavirus/COVID-19? No / Unsure 07/30/2023 7:19 AM EST documented as of this encounter Plan of Treatment Upcoming Encounters Date Type Department Care Team (Late st Contact Info) Description 04/16/2026 9:00 AM EDT Office Visit [facility] Cardiothoracic Surgery - [facility] [address] [facility] [address] [place] [id number] Tejinder Levy MD [address] [facility] [address] [place] [address] documented as of this encounter Results * CT chest without IV contrast (08/03/2023 11:37 AM EST) Anatomical Region Laterality Modality Chest, Lung Computed Tomogra phy (CT) 08/03/2023 11:5 0 AM EST Impressions 08/03/2023 11:53 AM EST Diffuse (ascending greater than descending) dilation of the thoracic aorta. Images reviewed, interpreted and dictated by Dr. Negro Dean MD Narrative 08/03/2023 11:[address] OF THE CHEST WITHOUT CONTRAST HISTORY: Thoracic aortic aneurysm.. PROCEDURE: Routine axial images were obtained from the lung apices to below the diaphragm without IV contrast administration. This study was performed with techniques to keep radiation doses as low as reasonably achievable, (ALARA). Individualized dose reduction techniques using automated exposure control or adjustment of mA and/or kV according to the patient size were employed. COMPARISON: None. FINDINGS: There is dilation of the ascending greater than descending thoracic aorta. For example, at the level of the right pulmonary artery the ascending aorta is 4.8 cm. The descending aorta is 3.4 cm. There is no significant atherosclerotic calcification. The presence or absence of dissection cannot be determined on this noncontrast exam. There is significant coronary artery calcification and possible calcification of portions of the aortic valve. There is moderate cardiomegaly. There is no pleural disease or adenopathy. There is evidence of old calcified granulomatous disease.. The lungs are otherwise clear. Procedure Note Negro Dean MD - 08/03/2023 CT OF THE CHEST WITHOUT CONTRAST HISTORY: Thoracic aortic aneurysm.. PROCEDURE: Routine axial images were obtained from the lung apices to below the diaphragm without IV contrast administration. This study was performed with techniques to keep radiation doses as low as reasonably achievable, (ALARA). Individualized dose reduction techniques using automated exposure control or adjustment of mA and/or kV according to the patient size were employed. COMPARISON: None. FINDINGS: There is dilation of the ascending greater than descending thoracic aorta. For example, at the level of the right pulmonary artery the ascending aorta is 4.8 cm. The descending aorta is 3.4 cm. There is no significant atherosclerotic calcification. The presence or absence of dissection cannot be determined on this noncontrast exam. There is significant coronary artery calcification and possible calcification of portions of the aortic valve. There is moderate cardiomegaly. There is no pleural disease or adenopathy. There is evidence of old calcified granulomatous disease.. The lungs are otherwise clear. IMPRESSION: Diffuse (ascending greater than descending) dilation of the thoracic aorta. Images reviewed, interpreted and dictated by Dr. Negro Dean MD Vic Kaminski MD IMG CT ORDERABLES Final Result documented in this encounter Visit Diagnoses Diagnosis Ascending aortic aneurysm, unspecified whether ruptured (HCC)- Primary Ascending aortic aneurysm, unspecified whether ruptured (HCC) documented in this encounter Care Teams Middle School Humanities Teacher Relationship Specialty Start Date End Date Provider, Not In System [place] PCP - General 07/30/23 08/01/23 López Hazel MD [address] [place] [address] [place] [address] PCP - General Adolescent Medicine 08/02/23 Vic Kaminski MD [address] [facility] [address] [place], [place] [id number] Anatomic Pathologist Cardiology 03/09/24 Wisam Hartmann Jr., MD [address] [facility] [address] [place] [address] Urologist Urology 03/10/24 Tejinder Levy MD [address] [facility] [address] [place] [address] Surgeon Cardiothoracic Surgery 03/14/24 documented as of this encounter
--- OUTSIDE RECORDS SUMMARY | 2025-04-24 08:03 | XMS_ITS | Encounter Summary ---
Author Organization [employer] ([place], [place], [place], [place]) Address [address] [place] [address] Care Team Providers Care Work Environment Safety Inspector Name Role Phone López Hazel MD Primary Care Provider + [phone] Vic Kaminski MD Unavailable [phone] Mary Kate Nance MD, [facility] Unavailable + [phone] Tejinder Levy MD Unavailable [phone] Reason for Referral * CAT Scan (Routine) - New Request Specialty Diagnoses / Procedures Referred By Naa anderson Referred To Contact Radiology Diagnoses Ascending aortic aneurysm (HCC) Procedures CT CHEST WITHOUT IV CONTRAST Tejinder Levy MD [address] [facility] [address] [place] [address] Phone: tel: fax: [facility] [address] [facility] [address] [place] [address] Phone: tel: fax: Referral ID Status Reason Start Date Expiration Date Visits Requested Visits Authorized [id number] New Request Continuity of Care 03/11/2026 03/11/2027 1 1 Encounter Details Date Type Department Care Team (Late st Contact Info) Description 04/10/2025 Orders Only [facility] Cardiothoracic Surgery [facility] [address] [place] [address] [address] [facility] [place] [phone] Kaitlynn Verma CMA Ascending aortic aneurysm (HCC) (Primary Dx) Social [...] Date David rded Speak language other than [place] Citizen at home Not on file 10/01/2023 Want [...] on file documented as of this encounter Plan of Treatment Upcoming Encounters Date Type Department Care Team (Late st Contact Info) Description 04/16/2026 9:00 AM EDT Office Visit [facility] Cardiothoracic Surgery [facility] [address] [place] [address] [address] [facility] [place] [address] Tejinder Levy MD [address] [place] [address] [address] [place] [address] Scheduled Orders Name Type Priority Associated Diagnoses Orde r Schedule CT CHEST WITHOUT IV CONTRAST Imaging Routine Ascending aortic aneurysm (HCC) Expected: 03/11/2026, Expires: 05/11/2026 documented as of this encounter Visit Diagnoses Diagnosis Ascending aortic aneurysm (HCC)- Primary Thoracic aneurysm without mention of rupture documented in this encounter Care Teams Work Environment Safety Inspector Relationship Specialty Start Date End Date López Hazel MD [address] [place] [address] [place] [address] PCP - General Adolescent Medicine 08/02/23 Vic Kaminski MD [address] [facility] [address] [place], [place] [id number] Mounter Smoking Pipe Cardiology 03/09/24 Wisam Hartmann Jr., MD [address] [facility] [address] [place], [place] [id number] Urologist Urology 03/10/24 Tejinder Levy MD [address] [facility] [address] [place], [place] [address] Surgeon Cardiothoracic Surgery 03/14/24 documented as of this encounter
--- OUTSIDE RECORDS SUMMARY | 2025-04-24 08:03 | XMS_ITS | Encounter Summary ---
Author Organization [employer] ([place], [place], [place], [place]) Address [address] [place] [address] Care Team Providers Care Food Aide Name Role Phone Provider, Not In System Primary Care Provider Un available López Hazel MD Primary Care Provider + [phone] Vic Kaminski MD Unavailable [phone] Mary Kate Nance MD, Thomas K Unavailable + [phone] Tejinder Levy MD Unavailable [phone] Encounter Details Date Type Department Care Team (Late st Contact Info) Description 10/04/2019 Transcribed Document [facility] [place] [facility] [place] [address] ProviderElias MD [address] [place] [address] Social History Tobacco Use Types Packs/Day Years Used Date Smoking Tobacco: Never Assessed Sex and Gender Information Value Date Recorded Sex Assigned at Male 03/19/2022 5:39 PM CDT Legal Sex Male 6:52 PM CDT Gender Identity Male 03/19/2022 5:39 PM CDT Sexual Orientation Not on file documented as of this encounter Miscellaneous Notes * Cerner Conversion Note - Historical ProviderMD - 10/04/2019 7:00 AM AIR LAUNCH WEAPONS TECHNICIAN Patient: EDWIN GUZMAN Age: 68 years Sex: Male : 1950 Associated Diagnoses: None Author: WISAM HARTMANN JR, MD-URO doing well No flatus pain controlled Benign abd urine is clear and yellow in tubing Hope home later today withfoley documented in this encounter Plan of Treatment Upcoming Encounters Date Type Department Care Team (Late st Contact Info) Description 04/16/2026 9:00 AM EDT Office Visit [facility] Cardiothoracic Surgery - [facility] [address] [facility] [address] [place] [phone] [place] [address] [place] [address] [address] [place], [place] [id number] documented as of this encounter Visit Diagnoses Not on filedocumented in this encounter Care Teams Food Aide Relationship Specialty Start Date End Date Provider, Not In System [place] PCP - General 07/30/23 08/01/23 López Hazel MD [address] [place] [address] PCP - General Adolescent Medicine 08/02/23 Vic Kaminski MD [address] [facility] [address] [place], [place] [id number] Corn Miller Cardiology 03/09/24 [place] [address] [place] [address] [address] [place] [address] Urologist Urology 03/10/24 [place] [address] [place] [address] [address] [place], [place] [id number] Surgeon Cardiothoracic Surgery 03/14/24 documented as of this encounter
--- OUTSIDE RECORDS SUMMARY | 2025-04-24 08:03 | XMS_ITS | Encounter Summary ---
Author Organization [employer] ([place], [place], [place], [place]) Address [address] [place] [address] Care Team Providers Care Biomedical Engineering Technologist Name Role Phone Provider, Not In System Primary Care Provider Un available López Hazel MD Primary Care Provider + [phone] Vic Kaminski MD Unavailable [phone] Mary Kate Nance MD, Wisam Viera Unavailable + [phone] Tejinder Levy MD Unavailable [phone] Encounter Details Date Type Department Care Team (Late st Contact Info) Description 10/03/2019 Transcribed Document [facility] [place] [address] [place] [address] ProviderElias MD [address] [place] [address] Social History Tobacco Use Types Packs/Day Years Used Date Smoking Tobacco: Never Assessed Sex and Gender Information Value Date Recorded Sex Assigned at Male 03/19/2022 5:39 PM CDT Legal Sex Male 6:52 PM CDT Gender Identity Male 03/19/2022 5:39 PM CDT Sexual Orientation Not on file documented as of this encounter Miscellaneous Notes * Cerner Conversion Note - Historical ProviderMD - 10/03/2019 8:15 AM GRAIN MERCHANDISER Peripheral Nerve Block Entered On: 10/03/2019 8:39 EST Performed On: 10/03/2019 8:15 EST by Kaia Galvez RN Peripheral Nerve Block Site Marked and Visible : Yes Peripheral Nerve Block Start Date/Time : 10/03/2019 8:15 EST Verbally Confirm Pt, Site, and Procedure : Yes Site Preparation : Chlorhexidine (Hibiclens) Peripheral Nerve Block : Other: TAPS Laterality : Bilateral Peripheral Nerve Block Performed by : CONSUELO CAMARA DO-ANS Medication Delivery Method : Single Shot Peripheral Nerve Block Assisted by : Niru Leyva Nurse - other Ultra sound used during insertion : Yes Nerve Block Activity, Patient Tolerance : Good Peripheral Nerve Block Comment : PRE-OP NERVE BLOCK PER SURGEON REQUEST Peripheral Nerve Block End Date/Time : 10/03/2019 8:30 EST Kaia Galvez RN - 10/03/2019 8:36 EST Electronically signed by [facility] Conversion Glass Driller Cerner at 01/06/2023 11:27 AM CDT documented in this encounter Plan of Treatment Upcoming Encounters Date Type Department Care Team (Late st Contact Info) Description 04/16/2026 9:00 AM EDT Office Visit [facility] Cardiothoracic Surgery - [facility] [address] [facility] [address] [place] [phone] Tejinder Levy MD [address] [facility] [address] [place], [place] [phone] documented as of this encounter Visit Diagnoses Not on filedocumented in this encounter Care Teams Biomedical Engineering Technologist Relationship Specialty Start Date End Date Provider, Not In System [place] PCP - General 07/30/23 08/01/23 López Hazel MD [address] [place] [address] PCP - General Adolescent Medicine 08/02/23 Vic Kaminski MD [address] [facility] [address] [place], [place] [phone] Exchange Clerk Cardiology 03/09/24 Wisam Hartmann Jr., MD [address] [facility] [address] [place] [address] Urologist Urology 03/10/24 Tejinder Levy MD [address] [place] [address] Surgeon Cardiothoracic Surgery 03/14/24 documented as of this encounter
--- OUTSIDE RECORDS SUMMARY | 2025-04-24 08:03 | XMS_ITS | Encounter Summary ---
Author Organization [employer] ([place], [place], [place], [place]) Address [address] [place] [address] Care Team Providers Care Workplace Trainer And Assessor Name Role Phone Provider, Not In System Primary Care Provider Un available López Hazel MD Primary Care Provider + [phone] Vic Kaminski MD Unavailable [phone] Mary Kate Nance MD, Wisam Viera Unavailable + [phone] Tejinder Levy MD Unavailable [phone] Encounter Details Date Type Department Care Team (Late st Contact Info) Description 10/03/[address] [facility] [place] [facility] [address] ProviderElias MD [address] [place] [address] Social History Tobacco Use Types Packs/Day Years Used Date Smoking Tobacco: Never Assessed Sex and Gender Information Value Date Recorded Sex Assigned at Male 03/19/2022 5:39 PM CDT Legal Sex Male 6:52 PM CDT Gender Identity Male 03/19/2022 5:39 PM CDT Sexual Orientation Not on file documented as of this encounter Miscellaneous Notes * Cerner Conversion Note - Historical ProviderMD - 10/03/2019 7:00 AM LARYNGOLOGIST Pediatric Growth Entered On: 10/03/2019 7:00 EST Performed On: 10/03/2019 7:00 EST by Renea Oliveros Care Asst-Health Unit Coord Height and Weight, Clinical Dosing Height Source : Stated Height Entry Format : [place] Height, Feet : 5 ft(Converted to: 152 cm, 60 Inch) Height, Inches : 11 Inch(Converted to: 0 ft 11 Inch, 27.94 cm) Clinical Height : 180.34 cm Weight Source : Standing scale Weight Entry Format : [place] Clinical Dosing Weight : 96.36 kg Weight, Pounds : 212 lb Body Surface Area (BSA) : 2.16 m2 Body Mass Index : 29.6 kg/m2 (HI) [place] Body Weight : 74 kg Renea Oliveros Care [facility] - 10/03/2019 7:00 EST documented in this encounter Plan of Treatment Upcoming Encounters Date Type Department Care Team (Late st Contact Info) Description 04/16/2026 9:00 AM EDT Office Visit [facility] Cardiothoracic Surgery - [facility] [address] [facility] [address] [place] [phone] Tejinder Levy MD [address] [facility] [address] [place], [place] [id number] documented as of this encounter Visit Diagnoses Not on filedocumented in this encounter Care Teams Workplace Trainer And Assessor Relationship Specialty Start Date End Date Provider, Not In System [place] PCP - General 07/30/23 08/01/23 López Hazel MD [address] [facility] [address] [place] [address] PCP - General Adolescent Medicine 08/02/23 Vic Kaminski MD [address] [facility] [address] [place] [address] Resolution Rep Cardiology 03/09/24 Wisam Hartmann Jr., MD [address] [facility] [address] [place], [place] [id number] Urologist Urology 03/10/24 Tejinder Levy MD [address] [place] [address] Surgeon Cardiothoracic Surgery 03/14/24 documented as of this encounter
--- OUTSIDE RECORDS SUMMARY | 2025-04-24 08:03 | XMS_ITS | Encounter Summary ---
Author Organization [employer] ([place], [place], [place], [place]) Address [address] [place] [address] Care Team Providers Care Head Setter Name Role Phone Provider, Not In System Primary Care Provider Un available López Stuart MD Primary Care Provider + [phone] Vic Kaminski MD Unavailable [phone] Mary Kate Nance MD, Thomas K Unavailable + [phone] Tejinder Levy MD Unavailable +[phone] Encounter Details Date Type Department Care Team (Late st Contact Info) Description 09/26/2019 Transcribed Document [facility] [place] [facility] [place] [address] ProviderElias MD [address] [place] [address] Social History Tobacco Use Types Packs/Day Years Used Date Smoking Tobacco: Never Assessed Sex and Gender Information Value Date Recorded Sex Assigned at Male 03/19/2022 5:39 PM CDT Legal Sex Male 6:52 PM CDT Gender Identity Male 03/19/2022 5:39 PM CDT Sexual Orientation Not on file documented as of this encounter Miscellaneous Notes * Cerner Conversion Note - Historical ProviderMD - 09/26/2019 8:38 AM MANUAL MACHINIST Patient: EDWIN GUZMAN Age: 68 Years Sex: Male : 1950 Chief Complaint Prostate Cancer Primary Care Provider LÓPEZ STUART (REF), -[place] History of Present Illness This patient is a pleasant 68 yo WM who presents with Prostate Cancer. He states that he had a colonoscopy where an abnormal mass was noted on his prostate. He was referred to Dr Hartmann's office where a biopsy was performed that revealed an Adenocarcinoma of the Prostate, Bicknell score 4+3. He was offered a Robotic Prostatectomy with LN and agreed to the procedure. Pt denies a h/o DVT/PE. No trouble with anesthesia in the past. No respiratory conditions including COPD/JUANITA/asthma. Review of Systems Constitutional: Neg for fevers or chills. Eyes: Neg for blurry vision or change in vision. ENT: Neg for sore throat, ear pain, or dizziness. Cardiac: Neg for chest pain or dyspnea on exertion. Respiratory: Neg for shortness of breath. Gastrointestinal: Neg for nausea, vomiting, diarrhea, or constipation. Musculoskeletal: Neg for LE pain or swelling. Genitourinary: Pos for Prostate Cancer. Neurologic: Neg for headaches or seizures. Psychiatric: Neg for anxiety and depression. Integumentary: Neg for rash. Vital Signs T: 36.6 ??C HR: 60(Peripheral) RR: 18 BP: 134/87 SpO2: 97% HT: 180.34 cm WT: 96.36 kg BMI: 29.6 Oxygen Settings (Last) Oxygen Therapy Mode: Room air (09/26/19 08:17:00) Physical Exam Constitutional: This is a pleasant 68 yo Wm in no acute distress. HEENT: Normocephalic, atraumatic. PEERLA. Extraocular muscles intact. Conjunctiva pink without exudate. Oropharynx pink and moist. Neck supple. No JVD. Cardiac: SI, S2. RRR. No M/R/G. Respiratory: Lungs CTA bilaterally. No wheezes, rales, or rhonchi. Abdomen: Soft, nontender, nondistended. Active bowel sounds. No visible masses. Musculoskeletal: Bilateral LE without clubbing, cyanosis or edema. Integumentary: Skin is pink, warm and dry. No rashes. Neurologic: CN II-XII grossly intact. Psychiatric: Judgment and affect appropriate. Assessment/Plan 1. Preoperative Evaluation- Pt underwent preoperative laboratory workup and diagnostic studies. 2. Prostate Cancer- Proceed with surgery as scheduled with Dr Hartmann on 10/03/2019. 3. Hypertension- Continue Atenolol and Lisinopril. 4. Hypothyroidism- Continue Synthroid. Problem List/Past Medical History Ongoing At risk for sleep apnea Hypertension Hypothyroid Prostate cancer Procedure/Surgical History colonoscopy. Home Medications (5) Active aspirin 81 mg oral tablet 81 mg = 1 Tab, Oral, BID atenolol 25 mg oral tablet 25 mg = 1 Tab, Oral, Daily levothyroxine 100 mcg (0.1 mg) oral tablet 100 mcg = 1 Tab, Oral, Daily lisinopril 10 mg oral tablet 10 mg = 1 Tab, Oral, Daily multivitamin 1 Tab, Oral, Daily Allergies No Known Medication Allergies Social History Alcohol Alcohol Use History No. Substance Abuse Drug Use Hx: No. Tobacco Never (less than 100 in lifetime) Smoking Status. Never Smokeless Tobacco Status. Family History Pt mother at 75 from CAD. Pt father at 57 from CAD. Diagnostic Results EKG- Sinus Nacho, 57 CXR- NAD Lab Results Test Name Test Result Date/Time Sodium Level 140 mmol/L 09/26/2019 08:33 EST Potassium Level 4.3 mmol/L 09/26/2019 08:33 EST Chloride Level 107 mmol/L 09/26/2019 08:33 EST Carbon Dioxide Level 29 mmol/L 09/26/2019 08:33 EST Anion Gap 8 (Low) 09/26/2019 08:33 EST Glucose Level 87 mg/dL 09/26/2019 08:33 EST Blood Urea Nitrogen 10 mg/dL 09/26/2019 08:33 EST Creatinine Level 0.95 mg/dL 09/26/2019 08:33 EST eGFR >60 mL/min/1.73m2 09/26/2019 08:33 EST eGFR NonAfrican >60 mL/min/1.73m2 09/26/2019 08:33 EST Bun/Creatinine 10.5 09/26/2019 08:33 EST Calcium Level 9.0 mg/dL 09/26/2019 08:33 EST WBC 12.6 K/uL (High) 09/26/2019 08:33 EST RBC 4.55 Million/uL (Low) 09/26/2019 08:33 EST Hgb 13.7 Gram/dL 09/26/2019 08:33 EST Hct 40.8 % 09/26/2019 08:33 EST MCV 89.7 fL 09/26/2019 08:33 EST MCH 30.1 pg 09/26/2019 08:33 EST MCHC 33.6 Gram/dL 09/26/2019 08:33 EST Platelet Count 279 K/uL 09/26/2019 08:33 EST MPV 10.9 fL 09/26/2019 08:33 EST RDW 12.8 % 09/26/2019 08:33 EST Slide Review No 09/26/2019 08:33 EST PT 10.4 Second(s) 09/26/2019 08:33 EST INR 1.0 09/26/2019 08:33 EST PTT 27.1 Second(s) 09/26/2019 08:33 EST Electronically signed by Interface, [facility] Conversion Leather Belt Loop Cutter Cerner at 01/06/2023 11:25 AM CDT documented in this encounter Plan of Treatment Upcoming Encounters Date Type Department Care Team (Late st Contact Info) Description 04/16/2026 9:00 AM EDT Office Visit [facility] Cardiothoracic Surgery - [facility] [address] [facility] [address] [place] [address] Tejinder Levy MD [address] [facility] [address] [place], [place] [id number] documented as of this encounter Visit Diagnoses Not on filedocumented in this encounter Care Teams Head Setter Relationship Specialty Start Date End Date Provider, Not In System [place] PCP - General 07/30/23 08/01/23 López Stuart MD [address] [facility] [address] [place] [address] PCP - General Adolescent Medicine 08/02/23 Vic Kaminski MD [address] [facility] [address] [place] [address] Facility Coordinator Cardiology 03/09/24 Wisam Hartmann Jr., MD [address] [facility] [address] [place], [place] [id number] Urologist Urology 03/10/24 Tejinder Levy MD [address] [place] [address] Surgeon Cardiothoracic Surgery 03/14/24 documented as of this encounter
--- OUTSIDE RECORDS SUMMARY | 2025-04-24 08:03 | XMS_ITS | Encounter Summary ---
Author Organization [employer] ([place], [place], [place], [place]) Address [address] [place] [address] Care Team Providers Care Leather Stretcher Name Role Phone Provider, Not In System Primary Care Provider Un available López Hazel MD Primary Care Provider + [phone] Vic Kaminski MD Unavailable [phone] Mary Kate Nance MD, Wisam Viera Unavailable + [phone] Tejinder Levy MD Unavailable [phone] Encounter Details Date Type Department Care Team (Late st Contact Info) Description 10/05/2019 Transcribed Document [facility] [place] [address] [place] [address] ProviderElias MD [address] [place] [address] Social History Tobacco Use Types Packs/Day Years Used Date Smoking Tobacco: Never Assessed Sex and Gender Information Value Date Recorded Sex Assigned at Male 03/19/2022 5:39 PM CDT Legal Sex Male 6:52 PM CDT Gender Identity Male 03/19/2022 5:39 PM CDT Sexual Orientation Not on file documented as of this encounter Miscellaneous Notes * Cerner Conversion Note - Historical ProviderMD - 10/05/2019 6:57 AM CUSTOMER SUPPORT COORDINATOR Manager Marketing Sales Details Entered On: 10/05/2019 6:58 EST Performed On: 10/05/2019 6:57 EST by Hurt, Gordon B, RN Order Details Transport Mode Order Detail : Wheelchair Isolation Precautions Order Detail : Standard Precautions Order Detail : N/A IV Order Detail : 1 Oxygen Order Detail : 0 Nurse Collect Order Detail : 0 Lift/Transfer : Independent Central Line Order Detail : No Room Service : Appropriate Arterial Line : No Gordon Montalvo, RN - 10/05/2019 6:57 EST Electronically signed by [facility], [facility] Conversion Boiling House Hand Cerner at 01/06/2023 11:31 AM CDT documented in this encounter Plan of Treatment Upcoming Encounters Date Type Department Care Team (Late st Contact Info) Description 04/16/2026 9:00 AM EDT Office Visit [facility] Cardiothoracic Surgery - [facility] [address] [facility] [address] [place] [address] Tejinder Levy MD [address] [facility] [address] [place], [place] [id number] documented as of this encounter Visit Diagnoses Not on filedocumented in this encounter Care Teams Leather Stretcher Relationship Specialty Start Date End Date Provider, Not In System [place] PCP - General 07/30/23 08/01/23 López Hazel MD [address] [place], [place] [id number] PCP - General Adolescent Medicine 08/02/23 Vic Kaminski MD [address] [facility] [address] [place], [place] [id number] Veterinarian Poultry Cardiology 03/09/24 Wisam Hartmann Jr., MD [address] [facility] [address] [place] [address] Urologist Urology 03/10/24 Tejinder Levy MD [address] [facility] [address] [place] [address] Surgeon Cardiothoracic Surgery 03/14/24 documented as of this encounter
--- OUTSIDE RECORDS SUMMARY | 2025-04-24 08:03 | XMS_ITS | Encounter Summary ---
Author Organization [employer] ([place], [place], [place], [place]) Address [address] [place] [address] Care Team Providers Care Grocery Buyer Name Role Phone Provider, Not In System Primary Care Provider Un available López Hazel MD Primary Care Provider + [phone] Vic Kaminski MD Unavailable [phone] Mary Kate Nance MD, Wisam Viera Unavailable + [phone] Tejinder Levy MD Unavailable [phone] Encounter Details Date Type Department Care Team (Late st Contact Info) Description 10/04/2019 Transcribed Document [facility] [place] Family Medicine [facility] [address] ProviderElias MD [address] [place] [address] Social History Tobacco Use Types Packs/Day Years Used Date Smoking Tobacco: Never Assessed Sex and Gender Information Value Date Recorded Sex Assigned at Male 03/19/2022 5:39 PM CDT Legal Sex Male 6:52 PM CDT Gender Identity Male 03/19/2022 5:39 PM CDT Sexual Orientation Not on file documented as of this encounter Miscellaneous Notes * Cerner Conversion Note - Historical ProviderMD - 10/04/2019 1:41 PM MANAGEMENT SERVICES TECHNICIAN Patient: EDWIN GUZMAN Age: 68 years Sex: Male : 1950 Associated Diagnoses: None Author: Ramone Ramos, Pharmacist Pharmacy verified patient's allergies and home medication list with the patient and their home pharmacy. Records are as follows: Home Medications (8) Active atenolol 25 mg [...] Oral, Daily multivitamin 1 Tab, Oral, Daily Aspirin 81mg, 2 tab, oral, daily Allergies (1) Active Reaction No Known Medication Allergies None Documented Thank you, Ramone Ramos, PharmD Electronically signed by [facility], [facility] Conversion Robotics Application Engineer Cerner at 01/06/2023 11:43 AM CDT documented in this encounter Plan of Treatment Upcoming Encounters Date Type Department Care Team (Late st Contact Info) Description 04/16/2026 9:00 AM EDT Office Visit [facility] Cardiothoracic Surgery - [facility] [address] [facility] [address] [place] [address] Tejinder Levy MD [address] [facility] [address] [place] [address] documented as of this encounter Visit Diagnoses Not on filedocumented in this encounter Care Teams Grocery Buyer Relationship Specialty Start Date End Date Provider, Not In System [place] PCP - General 07/30/23 08/01/23 López Hazel MD [address] [place] [address] [place] [address] PCP - General Adolescent Medicine 08/02/23 Vic Kaminski MD [address] [facility] [address] [place] [address] Senior Project Coordinator Cardiology 03/09/24 Wisam Hartmann Jr., MD [address] [facility] [address] [place], [place] [phone] Urologist Urology 03/10/24 Tejinder Levy MD [address] [facility] [address] [place] [address] Surgeon Cardiothoracic Surgery 03/14/24 documented as of this encounter
--- OUTSIDE RECORDS SUMMARY | 2025-04-24 08:03 | XMS_ITS | Encounter Summary ---
Author Organization [employer] ([place], [place], [place], [place]) Address [address] [place] [address] Care Team Providers Care Drip Molder Name Role Phone Provider, Not In System Primary Care Provider Un available López Hazel MD Primary Care Provider + [phone] Vic Kaminski MD Unavailable [phone] Mary Kate Nance MD, Wisam Viera Unavailable + [phone] Tejinder Levy MD Unavailable [phone] Encounter Details Date Type Department Care Team (Late st Contact Info) Description 10/04/2019 Transcribed Document [facility] [place] [address] ProviderElias MD [address] [place] [address] Social History Tobacco Use Types Packs/Day Years Used Date Smoking Tobacco: Never Assessed Sex and Gender Information Value Date Recorded Sex Assigned at Male 03/19/2022 5:39 PM CDT Legal Sex Male 6:52 PM CDT Gender Identity Male 03/19/2022 5:39 PM CDT Sexual Orientation Not on file documented as of this encounter Miscellaneous Notes * Cerner Conversion Note - Historical ProviderMD - 10/04/2019 7:52 AM LOFT WORKER APPRENTICE Final Discharge Planning Entered On: 10/04/2019 7:53 EST Performed On: 10/04/2019 7:52 EST by JAMILA BALTAZAR, RN-Speech Lang Path Final Discharge Planning Discharge Arrangements : Patient Post-Acute Information Patient Name: EDWIN GUZMAN Gender: Male : [birth year] Age: 68 Years No Post-Acute Placement(s) Listed No Post-Acute Service(s) Listed No [place] Referral(s) Listed Transportation Needs : Family/Friend Follow Up Appointment Scheduled : Yes Is Patient High/Moderate Readmission Risk? : No Discharge To Care Management : Home/Residential/Correction or Self Care -01 JAMILA BALTAZAR, RN-Speech Lang Path - 10/04/2019 7:52 EST documented in this encounter Plan of Treatment Upcoming Encounters Date Type Department Care Team (Late st Contact Info) Description 04/16/2026 9:00 AM EDT Office Visit [facility] Cardiothoracic Surgery - [facility] [address] [place] [address] [address] [place] [address] Tejinder Levy MD [address] [facility] [address] [place] [address] documented as of this encounter Visit Diagnoses Not on filedocumented in this encounter Care Teams Drip Molder Relationship Specialty Start Date End Date Provider, Not In System [place] PCP - General 07/30/23 08/01/23 López Hazel MD [address] [place] [address] [place] [address] PCP - General Adolescent Medicine 08/02/23 Vic Kaminski MD [address] [facility] [address] [place], [place] [id number] Transportation Dispatch Manager Cardiology 03/09/24 Wisam Hartmann Jr., MD [address] [facility] [address] [place] [phone] Urologist Urology 03/10/24 Tejinder Levy MD [address] [place] [address] Surgeon Cardiothoracic Surgery 03/14/24 documented as of this encounter
--- OUTSIDE RECORDS SUMMARY | 2025-04-24 08:03 | XMS_ITS | Encounter Summary ---
Author Organization [employer] ([place], [place], [place], [place]) Address [address] [place] [address] Care Team Providers Care Dental Hygiene Professor Name Role Phone Provider, Not In System Primary Care Provider Un available López Hazel MD Primary Care Provider + [phone] Vic Kaminski MD Unavailable [phone] Mary Kate Nance MD, Wisam K Unavailable + [phone] Tejinder Levy MD Unavailable [phone] Encounter Details Date Type Department Care Team (Late st Contact Info) Description 10/03/2019 Transcribed Document [facility] [place] Family Medicine [address] [place] [address] ProviderElias MD [address] [place] [address] Social History Tobacco Use Types Packs/Day [...] - Historical ProviderMD - 10/03/2019 9:42 AM [employer] [facility] Main OR PreOp Summary Primary Physician: WISAM HARTMANN JR, MD-URO Finalized Date/Time: 10/04/19 07:14:57 Pt. Name: EDWIN GUZMAN /Sex: 1950 Male Med Rec #: [id number] Physician: WISAM HARTMANN JR, MD-URO Financial #: [id number] Pt. Type: O Room/Bed: [facility]/1 Admit/Disch: 10/03/19 15:50:00 - [place] [facility] Case Times Entry 1 In Preop 10/03/19 07:00:00 Ready for Holding n/a Room Patient Ready for 10/03/19 07:37:00 Surgery Patient Out of Preop 10/03/19 09:25:00 Patient Out of n/a Holding Room Last Modified By: ODILIA HENRY 10/04/19 07:14:55 [facility] [place] Case Times Audit 10/04/19 07:14:55 Double Needle Operator: [email or web address] Modifier: [email or web address] <+> 1 Patient Out of Preop 10/03/19 07:38:46 Double Needle Operator: FLOYDSF Modifier: [email or web address] <+> 1 Patient Ready for Surgery Finalized By: ODILIA HENRY Document Signatures Signed By: OIDLIA HENRY 10/04/19 07:14 documented in this encounter Plan of Treatment Upcoming Encounters Date Type Department Care Team (Late st Contact Info) Description 04/16/2026 9:00 AM EDT Office Visit [facility] Cardiothoracic Surgery - [address] [facility] [address] [place] [address] Tejinder Levy MD [address] [facility] [address] [place] [address] documented as of this encounter Visit Diagnoses Not on filedocumented in this encounter Care Teams Dental Hygiene Professor Relationship Specialty Start Date End Date Provider, Not In System [place] PCP - General 07/30/23 08/01/23 López Hazel MD [address] [place] [address] [place] [address] PCP - General Adolescent Medicine 08/02/23 Vic Kaminski MD [address] [facility] [address] [place], [place] [id number] Dispatcher Bus And Trolley Cardiology 03/09/24 Wisam Hartmann Jr., MD [address] [facility] [address] [place], [place] [phone] Urologist Urology 03/10/24 Tejinder Levy MD [address] [facility] [address] [place], [place] [phone] Surgeon Cardiothoracic Surgery 03/14/24 documented as of this encounter
--- OUTSIDE RECORDS SUMMARY | 2025-04-24 08:03 | XMS_ITS | Encounter Summary ---
Author Organization [employer] ([place], [place], [place], [place]) Address [address] [place] [address] Care Team Providers Care Manager Combination Name Role Phone Provider, Not In System Primary Care Provider Un available López Hazel MD Primary Care Provider + [phone] Vic Kaminski MD Unavailable [phone] Mary Kate Nance MD, Wisam Viera Unavailable + [phone] Tejinder Levy MD Unavailable [phone] Encounter Details Date Type Department Care Team (Late st Contact Info) Description 10/04/2019 Transcribed Document [facility] Family Medicine [facility] [place] [address] ProviderElias MD [address] [place] [address] Social History Tobacco Use Types Packs/Day Years Used Date Smoking Tobacco: Never Assessed Sex and Gender Information Value Date Recorded Sex Assigned at Male 03/19/2022 5:39 PM CDT Legal Sex Male 6:52 PM CDT Gender Identity Male 03/19/2022 5:39 PM CDT Sexual Orientation Not on file documented as of this encounter Miscellaneous Notes * Cerner Conversion Note - Historical ProviderMD - 10/04/2019 1:11 PM BOOKKEEPING SERVICE SALES AGENT Patient: EDWIN GUZMAN Age: 68 years Sex: Male : 1950 Associated Diagnoses: None Author: ALFREDA WEAVER, DO Subjective Mr. Guzman was seen by me this morning, he tells me that abd is a little sore around incisions but not bad, he denies n/v, not passing gas yet. no coughing or sob, no chest pain. Health Status Current medications: Medications (17) Active Scheduled: (6) atenolol 25 mg tab 25 mg 1 Tab, Oral, Daily docusate sodium 100 mg cap 100 mg 1 Cap, Oral, BID enoxaparin 40 mg/0.4 mL inj 40 mg 0.4 mL, SubCutaneous, [id number] levothyroxine 100 mcg tab 100 mcg 1 Tab, Oral, Daily lisinopril 10 mg tab 10 mg 1 Tab, Oral, Daily pantoprazole EC 40 mg tab 40 mg 1 Tab, Oral, Daily Continuous: (1) NaCl 0.9% 1,000 mL 1,000 mL, IntraVENous, 125 mL/Hr PRN: (10) acetaminophen/oxyCODONE 325/5 mg tab 1 Tab, Oral, Q4H acetaminophen/oxyCODONE 325/5 mg tab 1 Tab, Oral, 1-Time belladonna/opium 16.2/60 mg *16A* supp 1 Supp, Rectal, Q6H hydrALAZINE 20 mg/1 mL inj 10 mg 0.5 mL, IV Push, Q6H HYDROmorphone 1 mg/1 mL inj 0.5 mg 0.5 mL, IV Push, Q4H ondansetron 4 mg/2 mL inj 4 mg 2 mL, IV Push, Q4H ondansetron 4 mg/2 mL inj 4 mg 2 mL, IV Push, 1-Time oxybutynin 5 mg tab 5 mg 1 Tab, Oral, Q6H promethazine 25 mg/1 mL inj 6.25 mg 0.25 mL, IntraMuscular, Q6H scopolamine 1.5 mg/72 hr patch 1 Patch, Topical, 1-Time Objective Intake and Output Intake & Output Totals Last 24 Hours (7a-7a) Intake (15 Events) Continuous Infusions (500 mL) Medications (105.5 mL) Oral Intake (860 mL) Surgical Services Intake (1000 mL) Output (11 Events) Howe Catheter (3700 mL) Surgical Drain/Tube Output: (80 mL) Input Total: 2465.5 mL Output Total: 3780 mL Balance: -1314.5 mL VS/Measurements Vitals Signs (last 24 hrs) Last Charted Minimum Maximum Temp 98 (OCT 04 09:05) 97.9 (OCT 03 23:33) 98.5 (OCT 03 13:45) Mon HR 71 (OCT 04 09:05) 61 (OCT 03 13:45) 77 (OCT 03 18:07) Resp Rate 20 (OCT 04 09:05) 16 (OCT 03 13:45) 20 (OCT 04 09:05) SBP H 144 (OCT 04 09:05) 109 (OCT 04 02:00) H 145 (OCT 03 13:45) DBP 69 (OCT 04 09:05) L 57 (OCT 04 05:00) 78 (OCT 03:45) MAP 87 (OCT 04 09:05) 69 (OCT 04 02:00) 88 (OCT 03 13:58) SpO2 98 (OCT 04 09:05) 95 (OCT 03 23:33) 99 (OCT 03 13:58) General: Alert and oriented, No acute distress. Eye: Pupils are equal, round and reactive to light, Normal conjunctiva. HENT: Normocephalic, Normal hearing. Respiratory: Lungs are clear to auscultation, Respirations are non-labored, Breath sounds are equal. Cardiovascular: Normal rate, Regular rhythm, No murmur, No edema. Gastrointestinal: Soft, Normal bowel sounds, lap sites CDI, RLQ jagdeep drain with serosan output, howe in place draining clear urine. Integumentary: Warm, Dry. Neurologic: Alert, Oriented, No focal deficits. Psychiatric: Cooperative, Appropriate mood & affect. Results Review General results Interpretation: OCT 04 03:16 141 107 12 / H 116 4.7 29 1.00 \ Labs (Last four charted values) WBC H 15.5 (OCT 04) H 12.6 (SEP 26) HB L 12.3 (OCT 04) 13.7 (SEP 26) HCT L 36.4 (OCT 04) 40.8 (SEP 26) Plt 259 (OCT 04) 279 (SEP 26) Na 141 (OCT 04) 140 (SEP 26) K 4.7 (OCT 04) 4.3 (SEP 26) Cl 107 (OCT 04) 107 (SEP 26) CO2 29 (OCT 04) 29 (SEP 26) BUN 12 (OCT 04) 10 (SEP 26) Cr 1.00 (OCT 04) 0.95 (SEP 26) Glu R H 116 (OCT 04) 87 (SEP 26) Ca L 8.1 (OCT 04) 9.0 (SEP 26) PT 10.4 (SEP 26) INR 1.0 (SEP 26) PTT 27.1 (SEP 26) No Radiology Results Found Impression and Plan essential htn - continue home meds - prn hydralazine hypothyroidism - pt clinically euthyroid - continue levothyroxine prostate cancer - s/p Robotic-assisted laparoscopic radical prostatectomy with nerve sparing with dr diallo today - howe - pain control d/w rn and cm time spent: 20 min discharge goals: ambulate today, still not passing gas- likely dc on 10/05. anticipated discharge disposition: home Alfreda Lundberg Hospitalist pager- [phone] Electronically signed by Isaias Obregon Conversion Inspector Advanced Composite Cerner at 01/06/2023 11:28 AM CDT documented in this encounter Plan of Treatment Upcoming Encounters Date Type Department Care Team (Late st Contact Info) Description 04/16/2026 9:00 AM EDT Office Visit [facility] Cardiothoracic Surgery - [facility] [address] [place] [address] [address] [place] [id number] Tejinder Levy MD [address] [facility] [address] [place] [address] documented as of this encounter Visit Diagnoses Not on filedocumented in this encounter Care Teams Manager Combination Relationship Specialty Start Date End Date Provider, Not In System [place] PCP - General 07/30/23 08/01/23 López Hazel MD [address] [place] [address] PCP - General Adolescent Medicine 08/02/23 Vic Kaminski MD [address] [place], [place] [id number] Fieldwork Coordinator Cardiology 03/09/24 Wisam Diallo Jr., MD [address] [facility] [address] [place], [place] [address] Urologist Urology 03/10/24 Tejinder Levy MD [address] [facility] [address] [place], [place] [address] Surgeon Cardiothoracic Surgery 03/14/24 documented as of this encounter
--- OUTSIDE RECORDS SUMMARY | 2025-04-24 08:03 | XMS_ITS | Encounter Summary ---
Author Organization [employer] ([place], [place], [place], [place]) Address [address] [place] [address] Care Team Providers Care Hand Candy Molder Name Role Phone López Hazel MD Primary Care Provider + [phone] Vic Kaminski MD Unavailable [phone] Mary Kate Nance MD, [facility] Unavailable + [phone] Tejinder Levy MD Unavailable [phone] Encounter Details Date Type Department Care Team (Late st Contact Info) Description 04/04/2024 Orders Only [facility] Cardiothoracic Surgery - [address] [facility] [address] [place] [address] [place] [address] [place] [address] [address] [place] [address] Ascending aorta dilation (HCC) (Primary Dx) Social History Tobacco Use [...] Date David rded Speak language other than Tunisian at home Not on file 10/01/2023 Want [...] as of this encounter Miscellaneous Notes * Addendum Note - Jessica Chacon CMA - 04/04/2024 3:33 PM EDTAddended by: JESSICA CHACON on: 04/02/2025 03:48 PM Modules accepted: Orders documented in this encounter Plan of Treatment Upcoming Encounters Date Type Department Care Team (Late st Contact Info) Description 04/16/2026 9:00 AM EDT Office Visit [facility] Cardiothoracic Surgery - [facility] [address] [place] [address] [address] [place] [id number] [place] [address] [place] [address] [address] [place] [address] documented as of this encounter Visit Diagnoses Diagnosis Ascending aorta dilation (HCC)- Primary Thoracic aneurysm without mention of rupture documented in this encounter Care Teams Hand Candy Molder Relationship Specialty Start Date End Date López Hazel MD [address] [place] [address] PCP - General Adolescent Medicine 08/02/23 Vic Kaminski MD [address] [facility] [address] [place], [place] [id number] Reconciliation Accountant Cardiology 03/09/24 Wisam Hartmann Jr., MD [address] [facility] [address] [place] [address] Urologist Urology 03/10/24 Tejinder Levy MD [address] [place] [address] Surgeon Cardiothoracic Surgery 03/14/24 documented as of this encounter
--- OUTSIDE RECORDS SUMMARY | 2025-04-24 08:03 | XMS_ITS | Encounter Summary ---
Author Organization [employer] ([place], [place], [place], [place]) Address [address] [place] [address] Care Team Providers Care Vice Provost Name Role Phone López Hazel MD Primary Care Provider + [phone] Vic Kaminski MD Unavailable [phone] Mary Kate Nance MD, [facility] Unavailable + [phone] Tejinder Levy MD Unavailable [phone] Reason for Referral * CAT Scan (Routine) - Closed Specialty Diagnoses / Procedures Referred By Naa anderson Referred To Contact Radiology Diagnoses Thoracic aortic aneurysm without rupture, unspecified part (HCC) Procedures CT chest without IV contrast Milena Barron APRN [address] [place] [address] Phone: tel: fax: Referral ID Status Reason Start Date Expiration Date Visits Re quested Visits Authorized [id number] Closed 01/24/2024 01/23/2025 1 1 Encounter Details Date Type Department Care Team (Late st Contact Info) Description 01/24/2024 Outside Orders [facility] Scheduling [address] [place] [address] Milena Barron APRN [address] [place] [id number] Thoracic aortic aneurysm without rupture, unspecified part (HCC) (Primary Dx) Social History Tobacco Use Types Packs/Day Years Used Date Smoking Tobacco: Never Assessed Family and Community Support Answer Sergio e Recorded Help with Day to Day Activities Not on file 10/01/2023 Feeling Lonely or Isolated Not on file 10/01 Educational Attainment Answer Date David rded Speak language other than Honduran at home Not on file 10/01/2023 Want [...] Description 04/16/2026 9:00 AM EDT Office Visit [facility] Cardiothoracic Surgery - [facility] [address] [facility] [address] [place] [address] Tejinder Levy MD [address] [facility] [address] [place] [address] documented as of this encounter Results * CT chest without IV contrast (01/31/2024 2:20 PM EDT) Anatomical Region Laterality Modality Chest, Lung Computed Tomogra phy (CT) 01/31/2024 3:11 PM EDT Impressions 01/31/2024 3:31 PM EDT 51 mm ascending aortic aneurysm. Images reviewed, interpreted, and dictated by Dr. Waleska Du. Transcribed by Blanca Allison PA-C. Narrative 01/31/2024 3:[address] SCAN OF THE CHEST WITHOUT CONTRAST. HISTORY: Thoracic aortic aneurysm, follow-up. COMPARISON: August 03, 2023. PROCEDURE: Axial images were obtained from the lung apex to the mid abdomen by computed tomography. This study was performed with techniques to keep radiation doses as low as reasonably achievable, (ALARA). Individualized dose reduction techniques using automated exposure control or adjustment of mA and/or kV according to the patient size were employed. FINDINGS: CHEST: There is no axillary adenopathy. There is no hilar or mediastinal adenopathy. Heart size is normal. Coronary artery calcifications are identified. There is a 51 mm ascending aortic aneurysm. There is no pericardial or pleural effusion. No suspicious infiltrate or nodules identified. Limited images of the upper abdomen are unremarkable. Procedure Note Bradford Du MD - 01/31/2024 CT SCAN OF THE CHEST WITHOUT CONTRAST. HISTORY: Thoracic aortic aneurysm, follow-up. COMPARISON: August 03, 2023. PROCEDURE: Axial images were obtained from the lung apex to the mid abdomen by computed tomography. This study was performed with techniques to keep radiation doses as low as reasonably achievable, (ALARA). Individualized dose reduction techniques using automated exposure control or adjustment of mA and/or kV according to the patient size were employed. FINDINGS: CHEST: There is no axillary adenopathy. There is no hilar or mediastinal adenopathy. Heart size is normal. Coronary artery calcifications are identified. There is a 51 mm ascending aortic aneurysm. There is no pericardial or pleural effusion. No suspicious infiltrate or nodules identified. Limited images of the upper abdomen are unremarkable. IMPRESSION: 51 mm ascending aortic aneurysm. Images reviewed, interpreted, and dictated by Dr. Waleska Du. Transcribed by Blanca Allison PA-C. Milena Barron APRN IMG CT ORDERABLES Final Res ult documented in this encounter Visit Diagnoses Diagnosis Thoracic aortic aneurysm without rupture, unspecified part (HCC)- Primary Thoracic aortic aneurysm without rupture, unspecified part (HCC) documented in this encounter Care Teams Vice Provost Relationship Specialty Start Date End Date López Hazel MD [address] [place] [address] PCP - General Adolescent Medicine 08/02/23 Vic Kaminski MD [address] [facility] [address] [place] [address] Tractor Engine Mechanic Cardiology 03/09/24 Wisam Hartmann Jr., MD [address] [facility] [address] [place], [place] [phone] Urologist Urology 03/10/24 [place] [address] [place] [address] [address] [place] [address] Surgeon Cardiothoracic Surgery 03/14/24 documented as of this encounter
--- OUTSIDE RECORDS SUMMARY | 2025-04-24 08:03 | XMS_ITS | Encounter Summary ---
Author Organization [employer] ([place], [place], [place], [place]) Address [address] [place] [address] Care Team Providers Care Choir Member Name Role Phone Provider, Not In System Primary Care Provider Un available López Hazel MD Primary Care Provider + [phone] Vic Kaminski MD Unavailable [phone] Mary Kate Nance MD, Wisam Viear Unavailable + [phone] Tejinder Levy MD Unavailable [phone] Encounter Details Date Type Department Care Team (Late st Contact Info) Description 10/04/2019 Transcribed Document [facility] Family [place] [facility] [place] [address] ProviderElias MD [address] [place] [address] Social History Tobacco Use Types Packs/Day Years Used Date Smoking Tobacco: Never Assessed Sex and Gender Information Value Date Recorded Sex Assigned at Male 03/19/2022 5:39 PM CDT Legal Sex Male 6:52 PM CDT Gender Identity Male 03/19/2022 5:39 PM CDT Sexual Orientation Not on file documented as of this encounter Miscellaneous Notes * Cerner Conversion Note - Historical ProviderMD - 10/04/2019 7:50 AM CLINICAL APPLICATIONS SPECIALIST Initial Discharge Planning Entered On: 10/04/2019 7:52 EST Performed On: 10/04/2019 7:50 EST by JAMILA BALTAZAR, RN-Industrial Electrician Initial Assessment I Previously Documented Living Environment : No qualifying data available. Living Situation : Home Patient Lives With : Spouse Emergency Contact #1 : [place] Emergency Contact #1 Emergency Contact #1 Relationship : spouse Emergency Contact #2 : [place] Emergency Contact #2 Emergency Contact #2 Relationship : daughter Enter Doctors Name : López Hazel MD Does Patient have PCP Listed? : Yes JAMILA BALTAZAR, RN-Industrial Electrician - 10/04/2019 7:50 EST Discharge Needs II Professional Skilled Services : Professional Skilled Services No qualifying data available. Services and Community Resources : Other: teaching howe care JAMILA BALTAZAR, RN-Industrial Electrician - 10/04/2019 7:50 EST Narrative Note Narrative Note : Pt under obs with dx of prostate cancer and essential HTN, s/p RA lap radical prostatectomy. Plan for possible home later today with howe cahtether, care of which will be taught by bedside nursing. No further d/c needs are anticipated. Low risk for re-admission. JAMILA BALTAZAR, RN-Industrial Electrician - 10/04/2019 7:50 EST Electronically signed by Mindi [facility] Conversion Tool Machine Shop Supervisor Cerner at 01/06/2023 11:30 AM CDT documented in this encounter Plan of Treatment Upcoming Encounters Date Type Department Care Team (Late st Contact Info) Description 04/16/2026 9:00 AM EDT Office Visit [facility] Cardiothoracic Surgery - [facility] [address] [facility] [address] [place] [address] Tejinder Levy MD [address] [facility] [address] [place] [address] documented as of this encounter Visit Diagnoses Not on filedocumented in this encounter Care Teams Choir Member Relationship Specialty Start Date End Date Provider, Not In System [place] PCP - General 07/30/23 08/01/23 López Hazel MD [address] [place] [address] PCP - General Adolescent Medicine 08/02/23 Vic Kaminski MD [address] [facility] [address] [place], [place] [id number] Skein Yarn Dyer Cardiology 03/09/24 Wisam Hartmann Jr., MD [address] [facility] [address] [place], [place] [address] Urologist Urology 03/10/24 Tejinder Levy MD [address] [facility] [address] [place], [place] [address] Surgeon Cardiothoracic Surgery 03/14/24 documented as of this encounter
--- OUTSIDE RECORDS SUMMARY | 2025-04-24 08:03 | XMS_ITS | Encounter Summary ---
Author Organization [employer] ([place], [place], [place], [place]) Address [address] [place] [address] Care Team Providers Care Peanut Sheller Name Role Phone Provider, Not In System Primary Care Provider Un available López Hazel MD Primary Care Provider + [phone] Vic Kaminski MD Unavailable [phone] Mary Kate Nance MD, Wisam Viera Unavailable + [phone] Tejinder Levy MD Unavailable [phone] Encounter Details Date Type Department Care Team (Late st Contact Info) Description 10/04/2019 Transcribed Document [facility] Family Medicine [address] [place] [address] ProviderElias MD [address] [place] [address] Social History Tobacco Use Types Packs/Day Years Used Date Smoking Tobacco: Never Assessed Sex and Gender Information Value Date Recorded Sex Assigned at Male 03/19/2022 5:39 PM CDT Legal Sex Male 6:52 PM CDT Gender Identity Male 03/19/2022 5:39 PM CDT Sexual Orientation Not on file documented as of this encounter Miscellaneous Notes * Cerner Conversion Note - Elias ProviderMD - 10/04/2019 2:00 AM INTERNET MERCHANT Storeroom Keeper Details Entered On: 10/04/2019 4:12 EST Performed On: 10/04/2019 2:00 EST by Ball, Idalia, RN Order Details Transport Mode Order Detail : Wheelchair Isolation Precautions Order Detail : Standard Precautions Order Detail : N/A IV Order Detail : 1 Oxygen Order Detail : 0 Nurse Collect Order Detail : 0 Lift/Transfer : Independent Central Line Order Detail : No Room Service : Appropriate Arterial Line : No Idalia Ball, RN - 10/04/2019 4:12 EST Electronically signed by Mindi [facility] Conversion Conversion Man Cerner at 01/06/2023 11:42 AM CDT documented in this encounter Plan of Treatment Upcoming Encounters Date Type Department Care Team (Late st Contact Info) Description 04/16/2026 9:00 AM EDT Office Visit [facility] Cardiothoracic Surgery - [facility] [address] [facility] [address] [place] [address] Tejinder Levy MD [address] [facility] [address] [place], [place] [address] documented as of this encounter Visit Diagnoses Not on filedocumented in this encounter Care Teams Peanut Sheller Relationship Specialty Start Date End Date Provider, Not In System [place] PCP - General 07/30/23 08/01/23 López Hazel MD [address] [place], [place] [phone] PCP - General Adolescent Medicine 08/02/23 Vic Kaminski MD [address] [facility] [address] [place], [place] [id number] Belt Maker Helper Cardiology 03/09/24 Wisam Hartmann Jr., MD [address] [facility] [address] [place] [address] Urologist Urology 03/10/24 Tejinder Levy MD [address] [facility] [address] [place] [address] Surgeon Cardiothoracic Surgery 03/14/24 documented as of this encounter
--- OUTSIDE RECORDS SUMMARY | 2025-04-24 08:03 | XMS_ITS | Encounter Summary ---
Author Organization [employer] ([place], [place], [place], [place]) Address [address] [place] [address] Care Team Providers Care Medical Dermatologist Name Role Phone López Hazel MD Primary Care Provider + [phone] Vic Kaminski MD Unavailable [phone] Mary Kate Nance MD, [facility] Unavailable + [phone] Tejinder Levy MD Unavailable [phone] Reason for Referral * CAT Scan (Routine) - Closed Specialty Diagnoses / Procedures Referred By Contjose t Referred To Contact Radiology Diagnoses Ascending aorta dilation (HCC) Procedures CTA chest Tejinder Levy MD [address] [facility] [address] [place] [address] Phone: tel: fax: [facility] Imaging [address] [place] [address] Phone: tel: fax: Referral ID Status Reason Start Date Expiration Date V isits Requested Visits Authorized [id number] Closed Continuity of Care 04/02/2025 04/02/2026 1 1 Encounter Details Date Type Department Care Team (Late st Contact Info) Description 04/02/2025 Orders Only [facility] Cardiothoracic Surgery [address] [address] Kaitlynn Verma CMA Ascending aorta dilation (HCC) (Primary Dx) Social [...] Date David rded Speak language other than Mosotho at home Not on file 10/01/2023 Want [...] Description 04/16/2026 9:00 AM EDT Office Visit [facility] Cardiothoracic Surgery [address] [address] Tejinder Levy MD [address] [place] [address] [address] [place] [id number] documented as of this encounter Results * CTA chest (04/03/2025 [...] Lesley Ragsdale. Transcribed by Blanca Allison PA-C. us Tejinder Levy MD IMG CT ORDERABLES Final R esult documented in this encounter Visit Diagnoses Diagnosis Ascending aorta dilation (HCC)- Primary Thoracic aneurysm without mention of rupture Ascending aorta dilation (HCC) Thoracic aneurysm without mention of rupture documented in this encounter Care Teams Medical Dermatologist Relationship Specialty Start Date End Date López Hazel MD [address] [place] [address] PCP - General Adolescent Medicine 08/02/23 Vic Kamniski MD [address] [facility] [address] [place] [address] Bridge Ironworker Cardiology 03/09/24 Wisam Hartmann Jr., MD [address] [facility] [address] [place] [address] Urologist Urology 03/10/24 Tejinder Levy MD [address] [facility] [address] [place] [address] Surgeon Cardiothoracic Surgery 03/14/24 documented as of this encounter
--- OUTSIDE RECORDS SUMMARY | 2025-04-24 08:03 | XMS_ITS | Encounter Summary ---
Author Organization [employer] ([place], [place], [place], [place]) Address [address] [place] [address] Care Team Providers Care Guide Travel Name Role Phone Provider, Not In System Primary Care Provider Un available López Hazel MD Primary Care Provider + [phone] Vic Kaminski MD Unavailable [phone] Mary Kate Nance MD, Wisam Viera Unavailable + [phone] Tejinder Levy MD Unavailable +[phone] Encounter Details Date Type Department Care Team (Late st Contact Info) Description 10/04/2019 Transcribed Document [facility] Family Medicine [facility] [place] [address] ProviderElias MD [address] [place] [address] Social History Tobacco Use Types Packs/Day Years Used Date Smoking Tobacco: Never Assessed Sex and Gender Information Value Date Recorded Sex Assigned at Male 03/19/2022 5:39 PM CDT Legal Sex Male 6:52 PM CDT Gender Identity Male 03/19/2022 5:39 PM CDT Sexual Orientation Not on file documented as of this encounter Miscellaneous Notes * Cerner Conversion Note - Historical ProviderMD - 10/04/2019 5:00 PM PHARMACEUTICAL DEVELOPMENT TECHNICIAN Chart Check - Review Order Profile Entered On: 10/04/2019 18:43 EST Performed On: 10/04/2019 17:00 EST by Lata Carbajal RN Chart Check Powerplans Initiated/Discontinued as Appropriate : Yes All Active Orders Reviewed : Yes Lata Carbajal RN - 10/04/2019 18:43 EST documented in this encounter Plan of Treatment Upcoming Encounters Date Type Department Care Team (Late st Contact Info) Description 04/16/2026 9:00 AM EDT Office Visit [facility]acic [facility] - [facility] [address] [facility] [address] [place] [phone] [place] [address] [place] [address] [address] [place], [place] [id number] documented as of this encounter Visit Diagnoses Not on filedocumented in this encounter Care Teams Guide Travel Relationship Specialty Start Date End Date Provider, Not In System [place] PCP - General 07/30/23 08/01/23 López Hazel MD [address] [facility] [address] [place] [address] PCP - General Adolescent Medicine 08/02/23 Vic Kaminski MD [address] [facility] [address] [place], [place] [id number] Newspaper Publisher Cardiology 03/09/24 [place] [address] [place] [address] [address] [place] [address] Urologist Urology 03/10/24 [place] [address] [place] [address] [address] [place], [place] [id number] Surgeon Cardiothoracic Surgery 03/14/24 documented as of this encounter
--- OUTSIDE RECORDS SUMMARY | 2025-04-24 08:03 | XMS_ITS | Encounter Summary ---
Author Organization [employer] ([place], [place], [place], [place]) Address [address] [place] [address] Care Team Providers Care Anesthesiologist Name Role Phone Provider, Not In System Primary Care Provider Un available López Hazel MD Primary Care Provider + [phone] Vic Kaminski MD Unavailable [phone] Mary Kate Nance MD, Thomas K Unavailable + [phone] Tejinder Levy MD Unavailable +[phone] Encounter Details Date Type Department Care Team (Late st Contact Info) Description 10/03/2019 Transcribed Document [facility] [place] [facility] [place] [address] ProviderElias MD [address] [place] [address] Social History Tobacco Use Types Packs/Day Years Used Date Smoking Tobacco: Never Assessed Sex and Gender Information Value Date Recorded Sex Assigned at Male 03/19/2022 5:39 PM CDT Legal Sex Male 6:52 PM CDT Gender Identity Male 03/19/2022 5:39 PM CDT Sexual Orientation Not on file documented as of this encounter Miscellaneous Notes * Cerner Conversion Note - Historical ProviderMD - 10/03/2019 10:42 AM STUDIO SALES ASSOCIATE Education-(VTE) / (DVT) Entered On: 10/03/2019 15:00 EST Performed On: 10/03/2019 15:00 EST by Mattie Garcia, RN Teaching/Learning Assessment Barriers To Learning : None evident Individuals Taught : Patient, Child Readiness to Learn : Cooperative Baseline Knowledge of Topic : Good Readiness to Learn : Explanation Learning Style Preferences Patient : Verbal explanation Mattie Garcia, RN - 10/03/2019 15:00 EST Electronically signed by Mindi [facility] Conversion Maintenance Team Leader Cerner at 01/06/2023 11:49 AM CDT documented in this encounter Plan of Treatment Upcoming Encounters Date Type Department Care Team (Late st Contact Info) Description 04/16/2026 9:00 AM EDT Office Visit [facility] Cardiothoracic Surgery - [address] [facility] [address] [place] [phone] [place] [address] [place] [address] [address] [place], [place] [phone] documented as of this encounter Visit Diagnoses Not on filedocumented in this encounter Care Teams Anesthesiologist Relationship Specialty Start Date End Date Provider, Not In System [place] PCP - General 07/30/23 08/01/23 López Hazel MD [address] [place] [address] [place] [address] PCP - General Adolescent Medicine 08/02/23 Vic Kaminski MD [address] [facility] [address] [place], [place] [phone] Boiler Cleaner Cardiology 03/09/24 Wisam Hartmann Jr., MD [address] [facility] [address] [place] [address] Urologist Urology 03/10/24 Tejinder Levy MD [address] [facility] [address] [place] [address] Surgeon Cardiothoracic Surgery 03/14/24 documented as of this encounter
--- OUTSIDE RECORDS SUMMARY | 2025-04-24 08:03 | XMS_ITS | Encounter Summary ---
Author Organization [facility] ([place], [place], [place], [place]) Address [address] [place] [address] Care Team Providers Care Mechanical Expert Name Role Phone Provider, Not In System Primary Care Provider Un available López Hazel MD Primary Care Provider + [phone] Vic Kaminski MD Unavailable [phone] Mary Kate Nance MD, Wisam Viera Unavailable + [phone] Tejinder Levy MD Unavailable [phone] Encounter Details Date Type Department Care Team (Late st Contact Info) Description 10/05/2019 Transcribed Document [facility] [place] [address] [place] [address] ProviderElias MD [address] [place] [address] Social History Tobacco Use Types Packs/Day Years Used Date Smoking Tobacco: Never Assessed Sex and Gender Information Value Date Recorded Sex Assigned at Male 03/19/2022 5:39 PM CDT Legal Sex Male 6:52 PM CDT Gender Identity Male 03/19/2022 5:39 PM CDT Sexual Orientation Not on file documented as of this encounter Miscellaneous Notes * Cerner Conversion Note - Historical ProviderMD - 10/05/2019 2:00 AM ENGLISH COMPOSITION TEACHER Nuclear Operations Specialist Details Entered On: 10/05/2019 4:11 EST Performed On: 10/05/2019 2:00 EST by Hurt, Gordon B, RN Order Details Transport Mode Order Detail : Wheelchair Isolation Precautions Order Detail : Standard Precautions Order Detail : N/A IV Order Detail : 1 Oxygen Order Detail : 0 Nurse Collect Order Detail : 0 Lift/Transfer : Independent Central Line Order Detail : No Room Service : Appropriate Arterial Line : No Gordon Montalvo, RN - 10/05/2019 4:10 EST Electronically signed by Mindi, [facility] Conversion Youth Leader Cerner at 01/06/2023 11:32 AM CDT documented in this encounter Plan of Treatment Upcoming Encounters Date Type Department Care Team (Late st Contact Info) Description 04/16/2026 9:00 AM EDT Office Visit [facility] Cardiothoracic Surgery - [address] [facility] [address] [place] [address] Tejinder Levy MD [address] [facility] [address] [place], [place] [phone] documented as of this encounter Visit Diagnoses Not on filedocumented in this encounter Care Teams Mechanical Expert Relationship Specialty Start Date End Date Provider, Not In System [place] PCP - General 07/30/23 08/01/23 López Hazel MD [address] [place], [place] [phone] PCP - General Adolescent Medicine 08/02/23 Vic Kaminski MD [address] [facility] [address] [place], [place] [id number] Manager Respiratory Care Cardiology 03/09/24 Wisam Hartmann Jr., MD [address] [facility] [address] [place] [address] Urologist Urology 03/10/24 Tejinder Levy MD [address] [facility] [address] [place] [address] Surgeon Cardiothoracic Surgery 03/14/24 documented as of this encounter
--- OUTSIDE RECORDS SUMMARY | 2025-04-24 08:03 | XMS_ITS | Encounter Summary ---
Author Organization [employer] ([place], [place], [place], [place]) Address [address] [place] [address] Care Team Providers Care Trial Court Judge Name Role Phone López Hazel MD Primary Care Provider + [phone] Vic Kaminski MD Unavailable [phone] Mary Kate Nance MD [facility] Unavailable + [phone] Tejinder Levy MD Unavailable [phone] Encounter Details Date Type Department Care Team (Latest Contact Info) Description 04/03/2025 Travel Social History Tobacco Use Types Packs/Day Years [...] Date David rded Speak language other than Welsh at home Not on file 10/01/2023 Want [...] Description 04/16/2026 9:00 AM EDT Office Visit [facility] Cardiothoracic Surgery - [facility] [address] [facility] [address] [place] [address] [place] [address] [place] [address] [address] [place], [place] [phone] documented as of this encounter Visit Diagnoses Not on filedocumented in this encounter Care Teams Trial Court Judge Relationship Specialty Start Date End Date López Hazel MD [address] [place] [address] [place] [address] PCP - General Adolescent Medicine 08/02/23 Vic Kaminski MD [address] [place], [place] [address] Sack Cleaning Hand Cardiology 03/09/24 [place] [address] [place] [address] [address] [place], [place] [address] Urologist Urology 03/10/24 [place] [address] [place] [address] [address] [place] [address] Surgeon Cardiothoracic Surgery 03/14/24 documented as of this encounter
--- OUTSIDE RECORDS SUMMARY | 2025-04-24 08:03 | XMS_ITS | Encounter Summary ---
Author Organization [employer] ([place], [place], [place], [place]) Address [address] [place] [address] Care Team Providers Care Technical Associate Name Role Phone Provider, Not In System Primary Care Provider Un available López Hazel MD Primary Care Provider + [phone] Vic Kaminski MD Unavailable [phone] Mary Kate Nance MD, Wisam Viera Unavailable + [phone] Tejinder Levy MD Unavailable [phone] Encounter Details Date Type Department Care Team (Late st Contact Info) Description 10/04/2019 Transcribed Document [facility] [place] [facility] [place] [address] ProviderElias MD [address] [place] [address] Social History Tobacco Use Types Packs/Day [...] Note - Historical ProviderMD - 10/04/2019 5:00 AM PANTOGRAPHER Chart Check - Review Order Profile Entered On: 10/04/2019 4:13 EST Performed On: 10/04/2019 5:00 EST by Idalia Ball, RN Chart Check Powerplans Initiated/Discontinued as Appropriate : Yes All Active Orders Reviewed : Yes Idalia Ball RN - 10/04/2019 4:13 EST Electronically signed by Jr Obregon Conversion Inspector Printed Circuit Boards Cerner at 01/06/2023 11:23 AM CDT documented in this encounter Plan of Treatment Upcoming Encounters Date Type Department Care Team (Late st Contact Info) Description 04/16/2026 9:00 AM EDT Office Visit [facility] Cardiothoracic Surgery - [facility] [address] [facility] [address] [place] [phone] [place] [address] [place] [address] [address] [place], [place] [address] documented as of this encounter Visit Diagnoses Not on filedocumented in this encounter Care Teams Technical Associate Relationship Specialty Start Date End Date Provider, Not In System [place] PCP - General 07/30/23 08/01/23 López Hazel MD [address] [facility] [address] [place] [address] PCP - General Adolescent Medicine 08/02/23 Vic Kaminski MD [address] [facility] [address] [place], [place] [phone] Product Safety And Standards Engineer Cardiology 03/09/24 Wisam Hartmann Jr., MD [address] [facility] [address] [place] [address] Urologist Urology 03/10/24 [place] [address] [place] [address] [address] [place], [place] [phone] Surgeon Cardiothoracic Surgery 03/14/24 documented as of this encounter
--- OUTSIDE RECORDS SUMMARY | 2025-04-24 08:03 | XMS_ITS | Encounter Summary ---
Author Organization [employer] ([place], [place], [place], [place]) Address [address] [place] [address] Care Team Providers Care Recreation Attendant Supervisor Name Role Phone Provider, Not In System Primary Care Provider Un available López Hazel MD Primary Care Provider + [phone] Vic Kaminski MD Unavailable [phone] Mary Kate Nance MD, Wisam Viera Unavailable + [phone] Tejinder Levy MD Unavailable [phone] Encounter Details Date Type Department Care Team (Late st Contact Info) Description 09/26/2019 Transcribed Document [facility] [place] Family Medicine [address] [place] [address] ProviderElias MD [address] [place] [address] Social History Tobacco Use Types Packs/Day Years Used Date Smoking Tobacco: Never Assessed Sex and Gender Information Value Date Recorded Sex Assigned at Male 03/19/2022 5:39 PM CDT Legal Sex Male 6:52 PM CDT Gender Identity Male 03/19/2022 5:39 PM CDT Sexual Orientation Not on file documented as of this encounter Miscellaneous Notes * Cerner Conversion Note - Historical ProviderMD - 09/26/2019 8:17 AM PAPER TESTER PAT Adult Entered On: 09/26/2019 8:21 EST Performed On: 09/26/2019 8:17 EST by Nancy Castillo RN Vital Measurements Temperature Source : Temporal artery scanning Temperature Mode : Fahrenheit Temperature, Fahrenheit : 97.9 Deg F Clinical Temperature, C : 36.6 Deg C Pulse Method : Non-Invasive BP Device Pulse Source : Brachial, Right Peripheral Pulse Rate : 60 bpm Pulse Rhythm : Regular Respiratory Rate : 18 Breaths/Min Blood Pressure Location : Arm, right upper Blood Pressure Source : Non-Invasive BP Device Blood Pressure Position : Sitting Systolic Blood Pressure : 134 mmHg Diastolic Blood Pressure : 87 mmHg Oxygen Saturation : 97 % Oxygen Therapy Mode : Room air Nancy Castillo RN - 09/26/2019 8:17 EST Height and Weight, Clinical Dosing Height Source : Stated Height Entry Format : [place] Height, Feet : 5 ft(Converted to: 152 cm, 60 Inch) Height, Inches : 11 Inch(Converted to: 0 ft 11 Inch, 27.94 cm) Clinical Height : 180.34 cm Weight Source : Standing scale Weight Entry Format : [place] Clinical Dosing Weight : 96.36 kg Weight, Pounds : 212 lb Body Surface Area (BSA) : 2.16 m2 Body Mass Index : 29.6 kg/m2 ([place]) [place] Body Weight : 74 kg Nancy Castillo RN - 09/26/2019 8:17 EST Health Histories Smoking Status : Never (less than 100 in lifetime; none in last 30 days) Smokeless Tobacco Status : Never Nancy Castillo RN - 09/26/2019 8:17 EST Social History (As Of: 09/26/2019 08:21:37 EST) Tobacco: Never (less than 100 in lifetime) Smoking Status. Never Smokeless Tobacco Status. (Last Updated: 09/26/2019 08:18:58 EST by Nancy Catsillo RN) Alcohol: Alcohol Use History No. (Last Updated: 09/26/2019 08:18:58 EST by Nancy Castillo RN) Substance Abuse: Drug Use Hx: No. (Last Updated: 09/26/2019 08:18:58 EST by Nancy Castillo RN) Infectious Disease History Infectious Disease History : Chicken pox/Shingles, Influenza, Measles, Mumps, Rubella, Pertussis (Whooping cough) Isolation Needed : Standard Fever/Chills Last 48 Hours : No Travel To Regions with Travel Advisories : No Travel Outside [place] Within Last 30 Days : No Contact With Traveler to Advisory Region : No Tuberculosis Symptoms : None Nancy Castillo RN - 09/26/2019 8:17 EST Anesthesia/Transfusion History Family History of Anesthesia Reaction : No prior transfusion(s) Transfusion History : Prior anesthesia without reaction Family History of Anesthesia Reaction : None Nanyc Castillo RN - 09/26/2019 8:17 EST Functional Assessment Functional ADL Evaluation Index EBN Bathing : Independent (2) Dressing : Independent (2) Toileting : Independent (2) Transferring Bed or Chair : Independent (2) Continence : Independent (2) Feeding : Independent (2) Nancy Castillo RN - 09/26/2019 8:17 EST ADL Index Score : 12 Nancy Castillo RN - 09/26/2019 8:17 EST Advance Directive Patient has Advance Directive *Q : Yes, Advance Directive not with the patient Advance Directive Type : Living will Copy Advance Directive Verified/on Chart : No Nancy Castillo RN - 09/26/2019 8:17 EST [place] Suicide Severity Rating Scale (C-SSRS) CSSRS Past Month Wish to be : No CSSRS Past Month Suicidal Thoughts : No CSSRS Lifetime Suicide Behavior : No Suicide Severity Rating Score : 0 Suicide Severity Rating : No Additional Care Required at this time Nancy Castillo RN - 09/26/2019 8:17 EST Psychosocial History Do You Have a History of the Following? : Patient denies history Currently in Unsafe Situation : No Nancy Castillo RN - 09/26/2019 8:17 EST Teaching/Learning Assessment Barriers To Learning : None evident Individuals Taught : Patient Readiness to Learn : Cooperative Nancy Castillo RN - 09/26/2019 8:17 EST Education Topics, Periop Preadmission Perioperative Education Grid Arrival Time/Place : Verbalizes understanding Incentive Spirometry : Verbalizes understanding NPO Status/Directions : Verbalizes understanding Preprocedure Preparations : Verbalizes understanding Preprocedure Tests/Labs : Verbalizes understanding Responsible Adult : Verbalizes understanding Take/Hold Medications Pre-Procedure : Verbalizes understanding Nancy Castillo RN - 09/26/2019 8:17 EST General Info Want Family/Rep/Phys Notified of Admit : No Emergency Contact #1 : [place] Emergency Contact #1 Emergency Contact #1 Relationship : spouse Emergency Contact #2 : [place] Emergency Contact #2 Emergency Contact #2 Relationship : daughter Information Obtained From : Patient Primary Language : Burkinan Preferred Communication Mode : Verbal Communication Barrier : None Nancy Castillo RN - 09/26/2019 8:17 EST Bobo Scale Bobo Sensory Perception : No impairment Bobo Moisture : Rarely moist Bobo Activity : Walks occasionally Bobo Mobility : No limitation Bobo Nutrition : Adequate Bobo Friction and Shear : No apparent problem Bobo Score : 21 Nancy Castillo RN - 09/26/2019 8:17 EST Sleep Apnea Risk Assmt Hx of [...] Sleep Apnea Risk Level Score : 4 Nancy Castillo RN - 09/26/2019 8:17 EST Electronically signed by Mindi [facility] Conversion Automotive Heavy Mechanic Cerner at 01/06/2023 11:23 AM CDT documented in this encounter Plan of Treatment Upcoming Encounters Date Type Department Care Team (Late st Contact Info) Description 04/16/2026 9:00 AM EDT Office Visit [facility] Cardiothoracic Surgery - [facility] [address] [place] [address] [address] [place] [phone] Tejinder Levy MD [address] [facility] [address] [place] [address] documented as of this encounter Visit Diagnoses Not on filedocumented in this encounter Care Teams Recreation Attendant Supervisor Relationship Specialty Start Date End Date Provider, Not In System [place] PCP - General 07/30/23 08/01/23 López Hazel MD [address] [place] [address] PCP - General Adolescent Medicine 08/02/23 Vic Kaminski MD [address] [facility] [address] [place], [place] [phone] Chain Saw Operator Cardiology 03/09/24 Wisam Hartmann Jr., MD [address] [facility] [address] [place], [place] [phone] Urologist Urology 03/10/24 Tejinder Levy MD [address] [facility] [address] [place], [place] [address] Surgeon Cardiothoracic Surgery 03/14/24 documented as of this encounter
--- OUTSIDE RECORDS SUMMARY | 2025-04-24 08:03 | XMS_ITS | Encounter Summary ---
Author Organization [employer] ([place], [place], [place], [place]) Address [address] [place] [address] Care Team Providers Care Towel Folder Name Role Phone Provider, Not In System Primary Care Provider Un available López Hazel MD Primary Care Provider [phone] Vic Kaminski MD Unavailable [phone] Yoel Nance MD, Wisam Viera Unavailable [phone] Tejinder Levy MD Unavailable [phone] Encounter Details Date Type Department Care Team (Late st Contact Info) Description 10/03/2019 Transcribed Document [facility] [place] [address] ProviderElias MD [address] [place] [id number] Social History Tobacco Use Types Packs/Day Years Used Date Smoking Tobacco: Never Assessed Sex and Gender Information Value Date Recorded Sex Assigned at Male 03/19/2022 5:39 PM CDT Legal Sex Male 6:52 PM CDT Gender Identity Male 03/19/2022 5:39 PM CDT Sexual Orientation Not on file documented as of this encounter Miscellaneous Notes * Cerner Conversion Note - Historical ProviderMD - 10/03/2019 2:46 PM OPTICAL MECHANIC Patient: EDWIN GUZMAN Age: 68 years Sex: Male : 1950 Associated Diagnoses: None Author: ALFREDA WEAVER DO Basic Information Source of history: Self, Medical record. History limitation: None. Chief Complaint prostate cancer PCP: lópez Reyes Mr. Guzman is a 68 year old male with history of HN, hypothyroidism who presented to [facility] [place]03 for evaluation of prostate cancer. HE tells me that he underwent routine colonosocpy and during procedure his prostate felt abnormal and he was recommended for prostate evaluation. He has seen been determine to have prostate cancer with dr diallo. He presented for robotic-assisted laparoscopic radical prostatectomy with nerve sparing. He was seen by me after surgery. He complains of some RIGHT shoulder aching pain. He denies n/v and is asking about advancing his diet for dinner. He reports some mild abd soreness. He tells me that he was feeling well before surgery today. Health Status Allergies: Allergic Reactions (Selected) No Known Medication Allergies Current medications: (Selected) Inpatient Medications Ordered B & O Supprettes 16-A: 1 Supp, Rectal, Q6H, PRN: Spasms Colace: 100 mg, Oral, BID Dilaudid: 0.5 mg, IV Push, Q4H, PRN: Pain (Severe 7-10) Ditropan: 5 mg, Oral, Q6H, PRN: Spasms Lovenox: 40 mg, SubCutaneous, [id number] Mefoxin: 2,000 mg, 50 mL, 100 mL/Hr, IV Piggyback, 1-Time Percocet 5/325 oral tablet: 1 Tab, Oral, 1-Time, PRN: Pain (Moderate 4-6) Percocet 5/325 oral tablet: 1 Tab, Oral, Q4H, PRN: Pain (Moderate 4-6) Phenergan: 6.25 mg, IntraMuscular, Q6H, PRN: Nausea Protonix: 40 mg, Oral, Daily Sodium Chloride 0.9% intravenous solution 1,000 mL: 125 mL/Hr, IntraVENous Transderm-Scop 1.5 mg transdermal film, extended release: 1 Patch, Topical, 1-Time, PRN: Nausea/Vomiting Zofran: 4 mg, IV Push, Q4H, PRN: Nausea atenolol: 25 mg, Oral, Daily levothyroxine: 100 mcg, Oral, Daily lisinopril: 10 mg, Oral, Daily ondansetron: 4 mg, IV Push, 1-Time, PRN: Nausea Prescriptions Prescribed Colace 100 mg oral capsule: 1 Cap, Oral, BID, 20 Cap, 0 Refill(s) Macrobid 100 mg oral capsule: 1 Cap, Oral, BID, for 14 Day(s), 28 Cap, 0 Refill(s) MiraLax oral powder for reconstitution: 17 Gram, Oral, Daily, 255 Gram, 0 Refill(s) Savage 7.5 mg-325 mg oral tablet: 1 Tab, Oral, Q4H, PRN: as needed for pain, 30 Tab, 0 Refill(s) Documented Medications Documented atenolol 25 mg oral tablet: 1 Tab, Oral, Daily, 0 Refill(s) levothyroxine 100 mcg (0.1 mg) oral tablet: 1 Tab, Oral, Daily, 0 Refill(s) lisinopril 10 mg oral tablet: 1 Tab, Oral, Daily, 0 Refill(s) multivitamin: 1 Tab, Oral, Daily, 0 Refill(s), Home Medications (8) Active atenolol 25 mg [...] Oral, Daily multivitamin 1 Tab, Oral, Daily Savage 7.5 mg-325 mg oral tablet 1 Tab, PRN, Oral, Q4H , Medications (17) Active Scheduled: (7) atenolol 25 mg tab 25 mg 1 Tab, Oral, Daily cefOXitin 2,000 mg 50 mL, IV Piggyback, 1-Time docusate sodium 100 mg cap 100 mg 1 Cap, Oral, BID enoxaparin 40 mg/0.4 mL inj 40 mg 0.4 mL, SubCutaneous, Q18IIle levothyroxine 100 mcg tab 100 mcg 1 Tab, Oral, Daily lisinopril 10 mg tab 10 mg 1 Tab, Oral, Daily pantoprazole EC 40 mg tab 40 mg 1 Tab, Oral, Daily Continuous: (1) NaCl 0.9% 1,000 mL 1,000 mL, IntraVENous, 125 mL/Hr PRN: (9) acetaminophen/oxyCODONE 325/5 mg tab 1 Tab, Oral, Q4H acetaminophen/oxyCODONE 325/5 mg tab 1 Tab, Oral, 1-Time belladonna/opium 16.2/60 mg *16A* supp 1 Supp, Rectal, Q6H HYDROmorphone 1 mg/1 mL inj 0.5 [...] mg/72 hr patch 1 Patch, Topical, 1-Time Problem list: Medical Prostate cancer / SNOMED CT 9346444443 / Confirmed Hypothyroid / SNOMED CT 39241469 / Confirmed Hypertension / SNOMED CT 5020931077 / Confirmed At risk for sleep apnea / IMO [id number] / Confirmed, Active Problems (4) At risk for sleep apnea Hypertension Hypothyroid Prostate cancer Histories Past Medical History: htn hypothyroidism prostate cancer Family History: mom had CAD at age 75 dad had CAD at age 57 Procedure history: colonoscopy. Social History no etoh or tobacco abuse. Review of Systems Constitutional: No fever, No chills, No weight gain, No weight loss. Eye: No blurring, No double vision, No visual disturbances. Ear/Nose/Mouth/Throat: No dysphagia, No nasal congestion, No sore throat. Respiratory: No shortness of breath, No cough, No hemoptysis, No wheezing. Cardiovascular: No chest pain, No palpitations, No peripheral edema. Gastrointestinal: No nausea, No vomiting, No diarrhea, No constipation, No melena, No rectal bleeding Abdominal pain: All quadrants. Genitourinary: No dysuria, No hematuria. Hematology/Lymphatics: No bruising tendency, No bleeding tendency. Musculoskeletal: Joint pain, No muscle pain. Integumentary: No rash, No skin lesion. Neurologic: No confusion, No headache. Psychiatric: No anxiety, No depression. Objective VS/Measurements Vitals Signs (last 24 hrs) Last Charted Minimum Maximum Temp 98.5 (OCT 03 13:45) 97.2 (OCT 03 12:29) 98 (OCT 03 11:35) Mon HR 61 (OCT 03:45) 55 (OCT 03 11:20) 67 (OCT 03 11:35) Resp Rate 16 (OCT 03 13:45) 15 (OCT 03 11:05) 18 (OCT 03 06:45) SBP H 145 (OCT 03:45) 113 (OCT 03:35) H 145 (OCT 03:45) DBP 78 (OCT 03:45) 62 (OCT 03 10:54) 89 (OCT 03 06:45) MAP 99 (OCT 03:35) 85 (OCT 03 10:54) 109 (OCT 03 11:00) SpO2 98 (OCT 03:45) 96 (OCT 03:29) 100 (OCT 03:20) General: Alert and oriented, No acute distress. Eye: Pupils are equal, round and reactive to light, Extraocular movements are intact. HENT: Normocephalic, Normal hearing. Neck: Supple, No carotid bruit, No jugular venous distention. Respiratory: Lungs are clear to auscultation, Respirations are non-labored, Breath sounds are equal. Cardiovascular: Normal rate, Regular rhythm, No murmur, No edema. Gastrointestinal: Soft, Non-tender, Non-distended, Normal bowel sounds, No organomegaly, abd incisions cdi. . Genitourinary: howe in place draining clear urine. Musculoskeletal: Normal range of motion, Normal strength, No tenderness. Integumentary: Warm, Dry. Neurologic: Alert, Oriented, No focal deficits. Psychiatric: Cooperative, Appropriate mood & affect, Normal judgment. No qualifying data available Results Review No Radiology Results Found Impression and Plan essential htn - continue home meds - prn hydralazine hypothyroidism - pt clinically euthyroid - continue levothyroxine prostate cancer - s/p Robotic-assisted laparoscopic radical prostatectomy with nerve sparing with dr yoel addison - howe - pain control medical record reviewed, discussed with sister and daughter at bedside Code status: senior test analyst spent: 35 min Alfreda Lundberg Hospitalist Physical Examination VS/Measurements Vitals Signs (last 24 hrs) Last Charted Minimum Maximum Temp 98.5 (OCT 03 13:45) 97.2 (OCT 03 12:29) 98 (OCT 03 11:35) Mon HR 61 (OCT 03 13:45) 55 (OCT 03 11:20) 67 (OCT 03 11:35) Resp Rate 16 (OCT 03 13:45) 15 (OCT 03 11:05) 18 (OCT 03 06:45) SBP H 145 (OCT 03 13:45) 113 (OCT 03 11:35) H 145 (OCT 03 13:45) DBP 78 (OCT 03 13:45) 62 (OCT 03 10:54) 89 (OCT 03 06:45) MAP 99 (OCT 03 11:35) 85 (OCT 03 10:54) 109 (OCT 03 11:00) SpO2 98 (OCT 03 13:45) 96 (OCT 03 12:29) 100 (OCT 03 11:20) Review / Management Results review: Labs (Last four charted values) WBC H 12.6 (SEP 26) HB 13.7 (SEP 26) HCT 40.8 (SEP 26) Plt 279 (SEP 26) Na 140 (SEP 26) K 4.3 (SEP 26) Cl 107 (SEP 26) CO2 29 (SEP 26) BUN 10 (SEP 26) Cr 0.95 (SEP 26) Glu R 87 (SEP 26) Ca 9.0 (SEP 26) PT 10.4 (SEP 26) INR 1.0 (SEP 26) PTT 27.1 (SEP 26) . documented in this encounter Plan of Treatment Upcoming Encounters Date Type Department Care Team (Late st Contact Info) Description 04/16/2026 9:00 AM EDT Office Visit [facility] Cardiothoracic Surgery - [address] [phone] [place] [address] [place] [address] [id number] [place] [id number] documented as of this encounter Visit Diagnoses Not on filedocumented in this encounter Care Teams Towel Folder Relationship Specialty Start Date End Date Provider, Not In System [place] PCP - General 07/30/23 08/01/23 López Hazel MD [address] [place] [address] PCP - General Adolescent Medicine 08/02/23 Vic Kaminski MD [address] [facility] [address] [place], [place] [id number] Blister Pack Operator Cardiology 03/09/24 Wisam Diallo Jr., MD [address] [facility] [address] [place] [address] Urologist Urology 03/10/24 Tejinder Levy MD [address] [facility] [address] [place] [address] Surgeon Cardiothoracic Surgery 03/14/24 documented as of this encounter
--- OUTSIDE RECORDS SUMMARY | 2025-04-24 08:03 | XMS_ITS | Encounter Summary ---
Author Organization [employer] ([place], [place], [place], [place]) Address [address] [place] [address] Care Team Providers Care Commercial Designer Name Role Phone Provider, Not In System Primary Care Provider Un available López Stuart MD Primary Care Provider [phone] Vic Kaminski MD Unavailable [phone] Mary Kate Nance MD, Tamia Viera Unavailable + [phone] Tejinder Levy MD Unavailable [phone] Encounter Details Date Type Department Care Team (Late st Contact Info) Description 10/05/2019 Transcribed Document [facility] [place] [facility] [place] [facility] [place] [address] ProviderElias MD [address] [place] [id number] Social History Tobacco Use Types Packs/Day Years Used Date Smoking Tobacco: Never Assessed Sex and Gender Information Value Date Recorded Sex Assigned at Male 03/19/2022 5:39 PM CDT Legal Sex Male 6:52 PM CDT Gender Identity Male 03/19/2022 5:39 PM CDT Sexual Orientation Not on file documented as of this encounter Miscellaneous Notes * Cerner Conversion Note - Historical ProviderMD - 10/05/2019 10:23 AM ADULT EDUCATION INSTRUCTOR [address] [address] JAMES GUZMAN :1950 Visit Time:10/03/2019 Your Visit Summary Your Care Team Admitting Physician - TAMIA HARTMANN JR, MD-URO Attending Physician - TAMIA HARTMANN JR, MD-URO Primary Care Physician - LÓPEZ STUART (REF)[facility] Referring Physician - TAMIA HARTMANN JR, MD-URO Your Diagnosis Malignant neoplasm of prostate, Malignant neoplasm of prostate These Are Your Goals I want to go home. - Not met Discharge Vitals Temperature 36.4 ??C Heart Rate (Monitored) 70 Respiratory Rate 16 Blood Pressure 140/72 What to do next Instructions From Your Care Team Discharge Follow Up Instructions: Follow up Mary Kate 10 days, ask Burt at office to arrange cystogram Activity: per urology recommendations., Discharge Activity: Other (use Special Instructions) Diet: Discharge Diet: Resume usual diet as tolerated Follow-Up Appointments Follow Up with TAMIA HARTMANN When 10/13/2019 09:00 AM EST Comments 0900 cystogram [facility] follow in Mary Kate's office at 10am Appointment has been made Where: [address] [place] [address] [facility] (1) Medications What How Much When Instructions Next Dose acetaminophen-hydrocodone (Duarte 7.5 mg-325 mg oral tablet) 1 Tablet(s) Oral Every 4 Hours as needed for as needed for pain Printed Prescription 3pm atenolol (atenolol 25 mg oral tablet) 1 Tablet(s) Oral Every Day tomorrow docusate (Colace 100 mg oral capsule) 1 Capsule(s) Oral Two Times A Day Printed Prescription tonight levothyroxine (levothyroxine 100 mcg (0.1 mg) oral tablet) 1 Tablet(s) Oral Every Day tomorrow lisinopril (lisinopril 10 mg oral tablet) 1 Tablet(s) Oral Every Day tomorrow multivitamin 1 Tablet(s) Oral Every Day tomorrow nitrofurantoin (Macrobid 100 mg oral capsule) 1 Capsule(s) Oral Two Times A Day Duration: 14 Day(s) Printed Prescription tonight polyethylene glycol 3350 (MiraLax oral powder for reconstitution) 17 Gram(s) Oral Every Day Printed Prescription daily Take your medications faithfully. Do NOT skip medication. Do NOT stop taking medications without the direction of a physician. Carry a list of your medications with you at all times, and take this medication list with you to your first follow up visit. Report any side effects. Avoid herbal remedies unless discussed with your physician. As part of your treatment plan, your physician may have prescribed a limited course of a controlled substance. This medication may be given to help people with moderate or severe pain or for other medical conditions, but there are risks involved with treatment. Common side effects may include nausea, constipation, drowsiness, sweating, itching, dry mouth, and rash. More serious side effects may include cognitive and motor impairment, like problems with thinking, concentrating, alertness, and movement (e.g. slowed reflexes), and driving and operating heavy machinery can be dangerous. It is important for you to talk to your physician if you have these side effects or questions. These controlled substances can produce physical dependence and be habit-forming if taken for an extended period of time, which means that the body has gotten used to them and may experience withdrawal symptoms if they are abruptly stopped. Withdrawal symptoms can include runny nose, sweating, goose bumps, diarrhea, abdominal cramping, rapid heartbeat, difficulty sleeping, and nervousness. Please dispose of unused and medications per your retail pharmacy guidance. Allergies No Known Medication Allergies Immunizations This Visit No Immunizations Found Education Materials Indwelling Urinary Catheter Care, Adult An indwelling [...] out of your bag when it is ? full, or at least 2???3 times a day. Do this for your [...] not have soap and water, use hand meat lugger. ??? Always make sure there are no [...] 01/01/2014 Document Revised: 04/22/2018 Document Reviewed: 04/22/2018 [employer] Interactive Patient Education ?? 2019 [employer]. Laparoscopic Prostatectomy Laparoscopic prostatectomy is a surgery [...] removing the prostate gland. During this procedure, 4???5 small incisions are made in the abdomen. The laparoscope and other surgical instruments are placed through the incisions and the prostate gland is removed. Tell a health care provider about: ??? Any allergies you have. ??? All medicines you are taking, including vitamins, herbs, eye drops, creams, and fhhd-bvh-fnuoixf medicines. ??? Any problems you or family [...] Up to 2 hours before the procedure ??? you may continue to drink clear liquids, such as water, clear fruit juice, black coffee, and plain tea. Eating and drinking restrictions Follow instructions from your health care provider about eating and drinking, which may include: ??? 8 hours before the procedure ??? stop eating heavy meals or foods such as meat, fried foods, or fatty foods. ??? 6 hours before the procedure ??? stop eating light meals or foods, such as toast or cereal. ??? 6 hours before the procedure ??? stop drinking milk or drinks that contain milk. ??? 2 hours before the procedure ??? stop drinking clear liquids. General instructions ??? [...] (Garcia catheter) will be inserted into your urethra to drain urine from your bladder. ??? An [...] 09/06/2006 Document Revised: 08/23/2017 Document Reviewed: 08/23/2017 [employer] Interactive Patient Education ?? 2019 [employer]. Laparoscopic Prostatectomy, Care After This sheet gives [...] these instructions at home: Medicines ??? Take ynhb-abp-xncbnjz and prescription medicines only as told by [...] urine clear or pale yellow. ? Take eodw-skc-zmglvbh or prescription medicines. ? Eat foods that [...] and water are not available, use hand meat lugger. ? Change your dressing as told by [...] pain, abdominal discomfort, and nausea. ??? Take lrkt-lbi-yjejjtv and prescription medicines only as told by [...] 09/06/2006 Document Revised: 08/11/2017 Document Reviewed: 08/11/2017 [employer] Interactive Patient Education ?? 2019 [employer]. nitrofurantoin (HENRIQUE troja fuja RAN toin) Furadantin, Macrobid, Macrodantin What is the most important information I should know about nitrofurantoin? You should not take nitrofurantoin if you have severe kidney disease, urination problems, or a history of jaundice or liver problems caused by nitrofurantoin. Do not take nitrofurantoin during late (from 38 weeks through delivery). What is nitrofurantoin? Nitrofurantoin is an antibiotic that is used to treat urinary tract infections caused by bacteria. Nitrofurantoin may also be used for purposes not listed in this medication guide. What should I discuss with my healthcare provider before taking nitrofurantoin? You should not take nitrofurantoin if you are allergic to it, or if you have: ?? severe kidney disease; ?? urination problems (little or no urination); or ?? a history of jaundice or liver problems caused by taking nitrofurantoin. Do not take nitrofurantoin during late (from 38 weeks through delivery). Tell your doctor if you have ever had: ?? kidney disease; ?? anemia; ?? diabetes; ?? an electrolyte imbalance or vitamin B deficiency; ?? wbtqdpi-4-ajontnhzy dehydrogenase (G6PD) deficiency; or ?? any type of debilitating disease. You should not breastfeed a baby younger than 1 month old while you are taking nitrofurantoin. Nitrofurantoin should not be given to a child younger than 1 month old. How should I take nitrofurantoin? Follow all directions on your prescription label and read all medication guides or instruction sheets. Use the medicine exactly as directed. Take nitrofurantoin with food, even if you take it at bedtime. Shake the oral suspension (liquid) before you measure a dose. Use the dosing syringe provided, or use a medicine dose-measuring device (not a kitchen spoon). You may need to keep taking nitrofurantoin for up to 7 days after lab tests show that the infection has cleared. Follow your doctor's instructions. Use this medicine for the full prescribed length of time, even if your symptoms quickly improve. Skipping doses can increase your risk of infection that is resistant to medication. Nitrofurantoin will not treat a viral infection such as the flu or a common cold. This medicine can affect the results of certain medical tests. Tell any doctor who treats you that you are using nitrofurantoin. If you use this medicine long-term, you may need frequent medical tests. Store at room temperature away from moisture, heat, and light. Do not freeze the liquid medicine, and keep the bottle tightly closed when not in use. Throw away any nitrofurantoin liquid that has not been used within 30 days. What happens if I miss a dose? Take the medicine as soon as you can, but skip the missed dose if it is almost time for your next dose. Do not take two doses at one time. What happens if I overdose? Seek emergency medical attention or call the Poison Help line at . Overdose can cause vomiting. What should I avoid while taking nitrofurantoin? Antibiotic medicines can cause diarrhea, which may be a sign of a new infection. If you have diarrhea that is watery or bloody, call your doctor before using anti-diarrhea medicine. Avoid taking an antacid that contains magnesium trisilicate, which could make it harder for your body to absorb nitrofurantoin. What are the possible side effects of nitrofurantoin? Get emergency medical help if you have signs of an allergic reaction (hives, difficult breathing, swelling in your face or throat) or a severe skin reaction (fever, sore throat, burning eyes, skin pain, red or purple skin rash with blistering and peeling). Call your doctor at once if you have: ?? severe stomach pain, diarrhea that is watery or bloody (even if it occurs months after your last dose); ?? vision problems; ?? fever, chills, cough, chest pain, trouble breathing; ?? numbness, tingling, or burning pain in your hands or feet; ?? severe pain behind your eyes; ?? pale skin, weakness; ?? joint pain or swelling with fever, swollen glands, and muscle aches; ?? pain, redness, or swelling in your lower jaw; ?? increased pressure inside the skull--severe headaches, ringing in your ears, dizziness, nausea, vision problems, pain behind your eyes; or ?? signs of liver or pancreas problems--upper stomach pain (that may spread to your back), nausea or vomiting, dark urine, yellowing of the skin or eyes. Side effects may be more likely in older adults. Common side effects may include: ?? headache, dizziness, drowsiness, weakness; ?? gas, indigestion, loss of appetite; ?? nausea, vomiting; ?? muscle or joint pain; ?? rash, itching; or ?? temporary hair loss. This is not a complete list of side effects and others may occur. Call your doctor for medical advice about side effects. You may report side effects to FDA at 3-049-AKK-0493. What other drugs will affect nitrofurantoin? Other drugs may affect nitrofurantoin, including prescription and fyyw-amb-dozczhv medicines, vitamins, and herbal products. Tell your doctor about all your current medicines and any medicine you start or stop using. Where can I get more information? Your pharmacist can provide more information about nitrofurantoin. Remember, keep this and all other medicines out of the reach of children, never share your medicines with others, and use this medication only for the indication prescribed. Every effort has been made to ensure that the information provided by [employer]') is accurate, up-to-date, and complete, but no guarantee is made to that effect. Drug information contained herein may be time sensitive. [employer] information has been compiled for use by healthcare practitioners and consumers in the [place] and therefore [employer] does not warrant that uses outside of the [place] are appropriate, unless specifically indicated otherwise. [employer] drug information does not endorse drugs, diagnose patients or recommend therapy. [employer] drug information is an informational resource designed to assist licensed healthcare practitioners in caring for their patients and/or to serve consumers viewing this service as a supplement to, and not a substitute for, the expertise, skill, knowledge and judgment of healthcare practitioners. The absence of a warning for a given drug or drug combination in no way should be construed to indicate that the drug or drug combination is safe, effective or appropriate for any given patient. [facility] does not assume any responsibility for any aspect of healthcare administered with the aid of information [facility] provides. The information contained herein is not intended to cover all possible uses, directions, precautions, warnings, drug interactions, allergic reactions, or adverse effects. If you have questions about the drugs you are taking, check with your doctor, nurse or pharmacist. Copyright 1358-0688 [facility]. Version: 9.01. Revision Date: 03/20/2019. docusate (oral/rectal) (DOK ue sate) Colace, Diocto, Doc-Q-Lace, Docu, Doculase, Docusil, Docusoft S, DocuSol, Dulcolax Stool Softener, Enemeez Mini, Shane-Tin, Pedia-Lax Stool Softener, Salazar Stool Softener, Promolaxin, Silace, Surfak Stool Softener, Jhonny-Q-Lax What is the most important information I should know about docusate? You should not use docusate if you also use mineral oil, unless your doctor tells you to. What is docusate? Docusate is a stool softener that makes bowel movements softer and easier to pass. Docusate is used to relieve occasional constipation (irregularity). There are many brands and forms of docusate available. Not all brands are listed on this leaflet. Docusate may also be used for purposes not listed in this medication guide. What should I discuss with my healthcare provider before using docusate? You should not use docusate if you are allergic to it. Ask a doctor or pharmacist if this medicine is safe to use if you have: ?? stomach pain; ?? nausea; ?? vomiting; or ?? a sudden change in bowel habits that lasts over 2 weeks. Ask a doctor before using this medicine if you are or . Do not give this medicine to a child without medical advice. How should I use docusate? Use exactly as directed on the label, or as prescribed by your doctor. Drink plenty of liquids while you are using docusate. Measure liquid medicine carefully. Use the dosing syringe provided, or use a medicine dose-measuring device (not a kitchen spoon). Do not take the rectal enema by mouth. Rectal medicine is for use only in the rectum. Wash your hands before and after using the enema. To use the enema, lie on your left side with your left leg extended and your right leg slightly bent. Remove the cap from the applicator tip and gently insert the tip into your rectum. Slowly squeeze the bottle to empty the contents into the rectum. After using the enema, lie down on your left side for at least 30 minutes to allow the liquid to distribute throughout your intestines. Avoid using the bathroom, and hold in the enema at least 1 hour, or all night if possible. Read and carefully follow any Instructions for Use provided with your medicine. Ask your doctor or pharmacist if you do not understand these instructions. Docusate generally produces bowel movement in 12 to 72 hours. Call your doctor if your symptoms do not improve after 72 hours. You should not use docusate for longer than 1 week, unless your doctor tells you to. Store at room temperature away from moisture and heat. Do not freeze liquid medicine. What happens if I miss a dose? Since docusate is used when needed, you may not be on a dosing schedule. Skip any missed dose if it's almost time for your next dose. Do not use two doses at one time. What happens if I overdose? Seek emergency medical attention or call the Poison Help line at . What should I avoid while using docusate? Avoid using mineral oil, unless told to do so by a doctor. What are the possible side effects of docusate? Get emergency medical help if you have signs of an allergic reaction: hives; difficult breathing; swelling of your face, lips, tongue, or throat. Stop using docusate and call your doctor at once if you have: ?? rectal bleeding or irritation; or ?? no bowel movement after 72 hours. Less serious side effects may be more likely, and you may have none at all. This is not a complete list of side effects and others may occur. Call your doctor for medical advice about side effects. You may report side effects to FDA at 8-147-WVU-4516. What other drugs will affect docusate? Other drugs may affect docusate, including prescription and krff-rhs-rhubehg medicines, vitamins, and herbal products. Tell your doctor about all your current medicines and any medicine you start or stop using. Where can I get more information? Your pharmacist can provide more information about docusate. Remember, keep this and all other medicines out of the reach of children, never share your medicines with others, and use this medication only for the indication prescribed. Every effort has been made to ensure that the information provided by [employer] ('[employer]') is accurate, up-to-date, and complete, but no guarantee is made to that effect. Drug information contained herein may be time sensitive. [employer] information has been compiled for use by healthcare practitioners and consumers in the [place] and therefore [employer] does not warrant that uses outside of the [place] are appropriate, unless specifically indicated otherwise. [employer] drug information does not endorse drugs, diagnose patients or recommend therapy. [employer] drug information is an informational resource designed to assist licensed healthcare practitioners in caring for their patients and/or to serve consumers viewing this service as a supplement to, and not a substitute for, the expertise, skill, knowledge and judgment of healthcare practitioners. The absence of a warning for a given drug or drug combination in no way should be construed to indicate that the drug or drug combination is safe, effective or appropriate for any given patient. [employer] does not assume any responsibility for any aspect of healthcare administered with the aid of information [employer] provides. The information contained herein is not intended to cover all possible uses, directions, precautions, warnings, drug interactions, allergic reactions, or adverse effects. If you have questions about the drugs you are taking, check with your doctor, nurse or pharmacist. Copyright 5690-7241 [employer]. Version: 4.01. Revision Date: 03/27/2019. acetaminophen and hydrocodone (a SEET a MIN oh fen and sherrell droe KOE done) Hycet, Lorcet, Duarte, Verdrocet, Vicodin, Xodol, Zamicet What is the most important information I should know about acetaminophen and hydrocodone? MISUSE OF OPIOID MEDICINE CAN CAUSE ADDICTION, OVERDOSE, OR . Keep the medication in a place where others cannot get to it. An overdose of acetaminophen can damage your liver or cause . Call your doctor at once if you have pain in your upper stomach, loss of appetite, dark urine, or jaundice (yellowing of your skin or eyes). Taking opioid medicine during may cause life-threatening withdrawal symptoms in the . Fatal side effects can occur if you use opioid medicine with alcohol, or with other drugs that cause drowsiness or slow your breathing. Stop taking this medicine and call your doctor right away if you have skin redness or a rash that spreads and causes blistering and peeling. What is acetaminophen and hydrocodone? Hydrocodone is an opioid pain medication, sometimes called a narcotic. Acetaminophen is a less potent pain reliever that increases the effects of hydrocodone. Acetaminophen and hydrocodone is a combination medicine used to relieve moderate to severe pain. Acetaminophen and hydrocodone may also be used for purposes not listed in this medication guide. What should I discuss with my healthcare provider before taking acetaminophen and hydrocodone? You should not use this medicine if you are allergic to acetaminophen or hydrocodone, or if you have: ?? severe asthma or breathing problems; or ?? a blockage in your stomach or intestines. Tell your doctor if you have ever had: ?? liver disease; ?? a drug or alcohol addiction; ?? kidney disease; ?? a head injury or seizures; ?? urination problems; or ?? problems with your thyroid, pancreas, or gallbladder. If you use opioid medicine while you are , your baby could become dependent on the drug. This can cause life-threatening withdrawal symptoms in the baby after it is born. Babies born dependent on opioids may need medical treatment for several weeks. Do not breast-feed. This medicine can pass into breast milk and cause drowsiness, breathing problems, or in a nursing baby. How should I take acetaminophen and hydrocodone? Follow all directions on your prescription label. Never take this medicine in larger amounts, or for longer than prescribed. An overdose can damage your liver or cause . Tell your doctor if the medicine seems to stop working as well in relieving your pain. Always check your bottle to make sure you have received the correct pills (same brand and type) of medicine prescribed by your doctor. Never share this medicine with another person, especially someone with a history of drug abuse or addiction. MISUSE CAN CAUSE ADDICTION, OVERDOSE, OR . Keep the medicine in a place where others cannot get to it. Selling or giving away acetaminophen and hydrocodone is against the law. Measure liquid medicine carefully. Use the dosing syringe provided, or use a medicine dose-measuring device (not a kitchen spoon). If you need surgery or medical tests, tell the doctor ahead of time that you are using this medicine. You should not stop using this medicine suddenly. Follow your doctor's instructions about tapering your dose. Store at room temperature away from moisture and heat. Keep track of your medicine. You should be aware if anyone is using it improperly or without a prescription. Do not keep leftover opioid medication. Just one dose can cause in someone using this medicine accidentally or improperly. Ask your pharmacist where to locate a drug take-back disposal program. If there is no take-back program, flush the unused medicine down the toilet. What happens if I miss a dose? Since this medicine is used for pain, you are not likely to miss a dose. Skip any missed dose if it is almost time for your next dose. Do not use two doses at one time. What happens if I overdose? Seek emergency medical attention or call the Poison Help line at . An overdose of acetaminophen and hydrocodone can be fatal. The first signs of an acetaminophen overdose include loss of appetite, nausea, vomiting, stomach pain, sweating, and confusion or weakness. Later symptoms may include pain in your upper stomach, dark urine, and yellowing of your skin or the whites of your eyes. Overdose can also cause severe muscle weakness, pinpoint pupils, very slow breathing, extreme drowsiness, or coma. What should I avoid while taking acetaminophen and hydrocodone? Avoid driving or operating machinery until you know how this medicine will affect you. Dizziness or drowsiness can cause falls, accidents, or severe injuries. Do not drink alcohol. Dangerous side effects or could occur. Ask a doctor or pharmacist before using any other medicine that may contain acetaminophen (sometimes abbreviated as APAP). Taking certain medications together can lead to a fatal overdose. What are the possible side effects of acetaminophen and hydrocodone? Get emergency medical help if you have signs of an allergic reaction: hives; difficulty breathing; swelling of your face, lips, tongue, or throat. Opioid medicine can slow or stop your breathing, and may occur. A person caring for you should seek emergency medical attention if you have slow breathing with long pauses, blue colored lips, or if you are hard to wake up. In rare cases, acetaminophen may cause a severe skin reaction that can be fatal. This could occur even if you have taken acetaminophen in the past and had no reaction. Stop taking this medicine and call your doctor right away if you have skin redness or a rash that spreads and causes blistering and peeling. Call your doctor at once if you have: ?? noisy breathing, sighing, shallow breathing; ?? a light-headed feeling, like you might pass out; ?? liver problems--nausea, upper stomach pain, tiredness, loss of appetite, dark urine, janell-colored stools, jaundice (yellowing of the skin or eyes); or ?? low cortisol levels-- nausea, vomiting, loss of appetite, dizziness, worsening tiredness or weakness. Seek medical attention right away if you have symptoms of serotonin syndrome, such as: agitation, hallucinations, fever, sweating, shivering, fast heart rate, muscle stiffness, twitching, loss of coordination, nausea, vomiting, or diarrhea. Serious side effects may be more likely in older adults and those who are overweight, malnourished, or debilitated. Long-term use of opioid medication may affect fertility (ability to have children) in men or women. It is not known whether opioid effects on fertility are permanent. Common side effects include: ?? dizziness, drowsiness, feeling tired; ?? nausea, vomiting, stomach pain; ?? constipation; or ?? headache. This is not a complete list of side effects and others may occur. Call your doctor for medical advice about side effects. You may report side effects to FDA at 8-249-WKT-4011. What other drugs will affect acetaminophen and hydrocodone? You may have breathing problems or withdrawal symptoms if you start or stop taking certain other medicines. Tell your doctor if you also use an antibiotic, antifungal medication, heart or blood pressure medication, seizure medication, or medicine to treat HIV or hepatitis C. Opioid medication can interact with many other drugs and cause dangerous side effects or . Be sure your doctor knows if you also use: ?? cold or allergy medicines, bronchodilator asthma/COPD medication, or a diuretic ('water pill'); ?? medicines for motion sickness, irritable bowel syndrome, or overactive bladder; ?? other narcotic medications--opioid pain medicine or prescription cough medicine; ?? a sedative like Valium--diazepam, alprazolam, lorazepam, Xanax, Klonopin, Versed, and others; ?? drugs that make you sleepy or slow your breathing--a sleeping pill, muscle relaxer, medicine to treat mood disorders or mental illness; ?? drugs that affect serotonin levels in your body--a stimulant, or medicine for depression, Parkinson's disease, migraine headaches, serious infections, or nausea and vomiting. This list is not complete. Other drugs may affect acetaminophen and hydrocodone, including prescription and dlle-nxj-bcviqet medicines, vitamins, and herbal products. Not all possible interactions are listed here. Where can I get more information? Your doctor or pharmacist can provide more information about acetaminophen and hydrocodone. Remember, keep this and all other medicines out of the reach of children, never share your medicines with others, and use this medication only for the indication prescribed. Every effort has been made to ensure that the information provided by [employer] is accurate, up-to-date, and complete, but no guarantee is made to that effect. Drug information contained herein may be time sensitive. [employer] information has been compiled for use by healthcare practitioners and consumers in the [place] and therefore [employer] does not warrant that uses outside of the [place] are appropriate, unless specifically indicated otherwise. [employer]s drug information does not endorse drugs, diagnose patients or recommend therapy. [employer] drug information is an informational resource designed to assist licensed healthcare practitioners in caring for their patients and/or to serve consumers viewing this service as a supplement to, and not a substitute for, the expertise, skill, knowledge and judgment of healthcare practitioners. The absence of a warning for a given drug or drug combination in no way should be construed to indicate that the drug or drug combination is safe, effective or appropriate for any given patient. [employer] does not assume any responsibility for any aspect of healthcare administered with the aid of information [employer] provides. The information contained herein is not intended to cover all possible uses, directions, precautions, warnings, drug interactions, allergic reactions, or adverse effects. If you have questions about the drugs you are taking, check with your doctor, nurse or pharmacist. Copyright 2642-3519 [employer] Version: 15.02. Revision Date: 07/25/2018. polyethylene glycol 3350 (emma ee ETH il een GLYE kol) ClearLax, GaviLAX, Gialax, GlycoLax, MiraLax, [id number], [employer] ClearLax What is the most important information I should know about polyethylene glycol 3350? You should not use this medicine if you have a bowel obstruction or intestinal blockage. If you have any of these conditions, you could have dangerous or life-threatening side effects from polyethylene glycol 3350. Do not use polyethylene glycol 3350 more than once per day. Call your doctor if you are still constipated or irregular after using this medication for 7 days in a row. What is polyethylene glycol 3350? Polyethylene glycol 3350 is a laxative solution that increases the amount of water in the intestinal tract to stimulate bowel movements. Polyethylene glycol 3350 is used as a laxative to treat occasional constipation or irregular bowel movements. Polyethylene glycol 3350 may also be used for purposes not listed in this medication guide. What should I discuss with my healthcare provider before taking polyethylene glycol 3350? You should not use this medicine if you are allergic to polyethylene glycol, or if you have a bowel obstruction or intestinal blockage. If you have any of these conditions, you could have dangerous or life-threatening side effects from polyethylene glycol 3350. People with eating disorders (such as anorexia or bulimia) should not use this medication without the advice of a doctor. To make sure this medicine is safe for you, tell your doctor if you have: ?? nausea, vomiting, or severe stomach pain; ?? ulcerative colitis; ?? irritable bowel syndrome; ?? kidney disease; or ?? if you have had a sudden change in bowel habits that has lasted 2 weeks or longer. FDA category C. It is not known whether polyethylene glycol 3350 will harm an unborn baby. Tell your doctor if you are or plan to become while using this medication. It is not known whether polyethylene glycol 3350 passes into breast milk or if it could harm a nursing baby. Tell your doctor if you are breast-feeding a baby. How should I take polyethylene glycol 3350? Follow all directions on your prescription label. Do not use this medicine in larger or smaller amounts or for longer than recommended. To use the powder form of this medicine, measure your dose with the medicine cap on the bottle. This cap should contain dose barone on the inside of it. Pour the powder into 4 to 8 ounces of a cold or hot beverage such as water, juice, soda, coffee, or tea. Stir this mixture and drink it right away. Do not save for later use. Polyethylene glycol 3350 should produce a bowel movement within 1 to 3 days of using the medication. Polyethylene glycol 3350 normally causes loose or even watery stools. Do not use polyethylene glycol 3350 more than once per day. Call your doctor if you are still constipated or irregular after using this medication for 7 days in a row. Store at room temperature away from moisture and heat. What happens if I miss a dose? Take the missed dose as soon as you remember. Skip the missed dose if it is almost time for your next scheduled dose. Do not take extra medicine to make up the missed dose. What happens if I overdose? Seek emergency medical attention or call the Poison Help line at . What should I avoid while taking polyethylene glycol 3350? Follow your doctor's instructions about any restrictions on food, beverages, or activity. What are the possible side effects of polyethylene glycol 3350? Get emergency medical help if you have signs of an allergic reaction: hives; difficult breathing; swelling of your face, lips, tongue, or throat. Stop taking this medicine and call your doctor at once if you have: ?? severe or bloody diarrhea; ?? rectal bleeding; ?? blood in your stools; or ?? severe and worsening stomach pain. Common side effects may include: ?? bloating, gas, upset stomach; ?? dizziness; or ?? increased sweating. This is not a complete list of side effects and others may occur. Call your doctor for medical advice about side effects. You may report side effects to FDA at 0-616-JUX-3016. What other drugs will affect polyethylene glycol 3350? Other drugs may interact with polyethylene glycol 3350, including prescription and fiid-axq-fttlkyz medicines, vitamins, and herbal products. Tell each of your health care providers about all medicines you use now and any medicine you start or stop using. Where can I get more information? Your pharmacist can provide more information about polyethylene glycol 3350. Remember, keep this and all other medicines out of the reach of children, never share your medicines with others, and use this medication only for the indication prescribed. Every effort has been made to ensure that the information provided by [employer] is accurate, up-to-date, and complete, but no guarantee is made to that effect. Drug information contained herein may be time sensitive. [employer] information has been compiled for use by healthcare practitioners and consumers in the [place] and therefore [employer] does not warrant that uses outside of the [place] are appropriate, unless specifically indicated otherwise. [employer] drug information does not endorse drugs, diagnose patients or recommend therapy. [employer] drug information is an informational resource designed to assist licensed healthcare practitioners in caring for their patients and/or to serve consumers viewing this service as a supplement to, and not a substitute for, the expertise, skill, knowledge and judgment of healthcare practitioners. The absence of a warning for a given drug or drug combination in no way should be construed to indicate that the drug or drug combination is safe, effective or appropriate for any given patient. [employer] does not assume any responsibility for any aspect of healthcare administered with the aid of information [employer] provides. The information contained herein is not intended to cover all possible uses, directions, precautions, warnings, drug interactions, allergic reactions, or adverse effects. If you have questions about the drugs you are taking, check with your doctor, nurse or pharmacist. Copyright 9749-0199 [employer] Version: 2.04. Revision Date: 12/23/2016. Emergency Awareness and Preventative Care STROKE is an EMERGENCY Every Minute Counts Act FAST and Check for these signs: FACE Does the face look uneven? ARM Does one arm drift down? SPEECH Does their speech sound strange? TIME Call at any sign of stroke Stroke Risk Factors Atrial Fibrillation (irregular heartbeat) Diabetes Family history of stroke Heart Disease Heavy alcohol use High Blood Pressure High Cholesterol Physical inactivity and obesity Smoking Cigarette Smoking The facts are clear, cigarette smoking will shorten your life. Smoking can cause many illnesses along the way. As a healthcare provider, we recommend that you stop smoking. Assistance with quitting is available by contacting 2-824-XVRY-NOW. This is a free resource providing counseling, support, and referral. Or you may contact your personal physician. National Suicide Prevention Lifeline: The National Suicide Prevention Lifeline is a national network of local crisis centers that provides free and confidential emotional support to people in suicidal crisis or emotional distress 24 hours a day, 7 days a week. Don't Wait! Stop a Heart Attack Before it Starts What is a heart attack? A heart attack is damage or to a part of the heart from severely decreased or lack of blood flow to the heart. Over time, arteries can become narrow from the buildup of fat and cholesterol, which is called plaque. The plaque can rupture causing a blood clot to form. When the blood clot forms, the artery can become severely narrowed or completely blocked, causing a heart attack. Heart attack is the leading cause of in the [place]. 85% of muscle damage occurs within the first 2 hours. Delay in the recognition of heart attack symptoms increases the chances of . Know the early symptoms of a heart attack: Nausea Feeling of fullness in chest Jaw Pain Pain that travels down one or both arms Fatigue/being tired Anxiety Back Pain Chest pressure, squeezing, or discomfort Shortness of breath Sweating, or a cold sweat Feeling of impending doom There are unusual signs of a heart attack, too! Women, the elderly, and diabetics may present with atypical symptoms: Fainting/dizziness Weakness Confusion Risk Factors for a Heart Attack Some heart disease risk factors, such as age and family history, cannot be changed. Others, like smoking and lack of exercise, can be changed. Smoking High Cholesterol High Blood Pressure Family History Obesity Age Gender (Males are at higher risk) Lack of Exercise Diabetes Diet Stress Excessive Alcohol Intake If you or someone you know is experiencing the signs and symptoms of a heart attack, DON???T DELAY. Call immediately and seek help. If someone collapses, perform CPR! Do not attempt to drive if you are having symptoms of heart attack. Hands-Only CPR Why Hands-Only CPR? Hands-Only CPR has been shown to be as effective as conventional CPR for cardiac arrests that occur outside of a hospital. Survival depends on immediately receiving CPR from someone nearby. How do you perform Hands-Only CPR? There are two easy steps: Call if you see a teen or adult collapse Push hard and fast in the center of the chest at a beat of 100 beats per minute. Save a life! 4 WAYS TO GET AHEAD OF SEPSIS SEPSIS is a MEDICAL EMERGENCY. Time matters! Infections put you and your family at risk for a life-threatening condition called sepsis. Sepsis is the body's extreme response to an infection. It is life-threatening, and without timely treatment, sepsis can rapidly lead to tissue damage, organ failure, and . Sepsis happens when an infection you already have-in your skin, lungs, urinary tract or somewhere else-triggers a chain reaction throughout your body. 1 PREVENT INFECTIONS Take good care of chronic conditions. Talk to your doctor about getting the recommended vaccines. 2 PRACTICE GOOD HYGIENE Wash your hands frequently. Keep cuts or open sores clean and covered until they are healed. 3 KNOW THE SYMPTOMS Confusion or disorientation Shortness of breath High heart rate Fever, shivering, or feeling very cold Extreme pain or discomfort Clammy or sweaty skin 4 ACT FAST Get medical care IMMEDIATELY if you suspect sepsis or if you have an infection that is not getting better or is getting worse. To learn more about sepsis and how to prevent infections, visit www.cdc.gov/sepsis. Test Results Laboratory or Other Results This Visit (last charted value for your 10/03/2019 visit) Hematology 10/05/2019 3:21 AM WBC: 13.5 K/uL -- Normal range between ( 3.9 and 10.0 ) RBC: 3.99 Million/uL -- Normal range between ( 4.63 and 6.08 ) Hct: 36.5 % -- Normal range between ( 40.1 and 51.0 ) Hgb: 12.3 Gram/dL -- Normal range between ( 13.7 and 17.5 ) Platelet Count: 222 K/uL -- Normal range between ( 163 and 369 ) MCH: 30.8 pg -- Normal range between ( 25.6 and 32.2 ) MCHC: 33.7 Gram/dL -- Normal range between ( 32.3 and 36.5 ) MCV: 91.5 fL -- Normal range between ( 79.0 and 94.8 ) Slide Review: No RDW: 13.2 % -- Normal range between ( 11.6 and 14.4 ) MPV: 11.1 fL -- Normal range between ( 9.4 and 12.4 ) Blood Bank 10/03/2019 7:29 AM ABO/Rh Repeat: O POS 10/03/2019 7:27 AM ABO/Rh: O POS Antibody Screen (Tube): Negative ABSC General Chemistry 10/05/2019 3:21 AM Creatinine Level: 0.93 mg/dL -- Normal range between ( 0.70 and 1.30 ) Sodium Level: 143 mmol/L -- Normal range between ( 136 and 146 ) Potassium Level: 3.9 mmol/L -- Normal range between ( 3.5 and 5.1 ) Chloride Level: 110 mmol/L -- Normal range between ( 102 and 112 ) Carbon Dioxide Level: 27 mmol/L -- Normal range between ( 21 and 32 ) Anion Gap: 10 -- Normal range between ( 9 and 20 ) Bun/Creatinine: 11.8 -- Normal range between ( 8.0 and 20.0 ) Calcium Level: 7.7 mg/dL -- Normal range between ( 8.5 and 10.1 ) eGFR : >60 mL/min/1.73m2 eGFR NonAfrican: >60 mL/min/1.73m2 Glucose Level: 99 mg/dL -- Normal range between ( 74 and 106 ) Blood Urea Nitrogen: 11 mg/dL -- Normal range between ( 7 and 22 ) Coagulation 09/26/2019 8:33 AM INR: 1.0 -- Normal range between ( 0.9 and 1.1 ) PTT: 27.1 Second(s) -- Normal range between ( 24.5 and 30.1 ) PT: 10.4 Second(s) -- Normal range between ( 9.6 and 11.5 ) Diagnostic Radiology 09/26/2019 10:35 AM CR Chest 2 Vws: CR Chest 2 Vws Patient Name:JAMES GUZMAN I have received and understand this information and was given the opportunity to ask questions. Patient/Stake Driver Name: Electronically signed by [facility], [facility] Conversion Frame Wirer Cerner at 01/06/2023 11:41 AM CDT documented in this encounter Plan of Treatment Upcoming Encounters Date Type Department Care Team (Late st Contact Info) Description 04/16/2026 9:00 AM EDT Office Visit [facility] Cardiothoracic Surgery - [facility] [address] [place] [address] [address] [place] [address] [place] [address] [place] [address] [address] [place], [place] [id number] documented as of this encounter Visit Diagnoses Not on filedocumented in this encounter Care Teams Commercial Designer Relationship Specialty Start Date End Date Provider, Not In System [place] PCP - General 07/30/23 08/01/23 López Stuart MD [address] [place] [address] PCP - General Adolescent Medicine 08/02/23 Vic Kaminski MD [address] [facility] [address] [place], [place] [id number] Cabin Equipment Supervisor Cardiology 03/09/24 Tamia Hartmann Jr., MD [address] [facility] [address] [place], [place] [id number] Urologist Urology 03/10/24 Tejinder Levy MD [address] [facility] [address] [place], [place] [id number] Surgeon Cardiothoracic Surgery 03/14/24 documented as of this encounter
--- OUTSIDE RECORDS SUMMARY | 2025-04-24 08:04 | XMS_ITS | Encounter Summary ---
Author Organization [employer] ([place], [place], [place], [place]) Address [address] [place] [address] Care Team Providers Care Family Engagement Specialist Name Role Phone Provider, Not In System Primary Care Provider Un available López Hazel MD Primary Care Provider + [phone] Vic Kaminski MD Unavailable Mary Kate Nance MD, Wisam Viera Unavailable + [phone] Tejinder Levy MD Unavailable [phone] Encounter Details Date Type Department Care Team (Late st Contact Info) Description 10/03/2019 Transcribed Document [facility] [place] Family Medicine [address] [place] [address] ProviderElias MD [address] [place] [address] Social History Tobacco Use Types Packs/Day Years Used Date Smoking Tobacco: Never Assessed Sex and Gender Information Value Date Recorded Sex Assigned at Male 03/19/2022 5:39 PM CDT Legal Sex Male 6:52 PM CDT Gender Identity Male 03/19/2022 5:39 PM CDT Sexual Orientation Not on file documented as of this encounter Miscellaneous Notes * Cerner Conversion Note - Elias ProviderMD - 10/03/2019 10:42 AM COMMUTATOR TESTER Pain Assessment Entered On: 10/04/2019 1:38 EST Performed On: 10/03/2019 20:06 EST by Ball, Idalia, RN Intervention Information: acetaminophen-oxyCODONE Performed by Mattie Garcia RN on 10/03/2019 19:06:00 EST acetaminophen-oxyCODONE,1Tab Oral,Pain (Moderate 4-6) Pain Assessment Pain Assessment : Follow-up assessment Pain Scale Goal : 4 Pain Scale Used : 0-10 Scale Idalia Ball RN - 10/04/2019 1:38 EST Pain Scale Intensity : 4 Idalia Ball RN - 10/04/2019 1:38 EST Image 4 - Images currently included in the form version of this document have not been included in the text rendition version of the form. documented in this encounter Plan of Treatment Upcoming Encounters Date Type Department Care Team (Late st Contact Info) Description 04/16/2026 9:00 AM EDT Office Visit [facility] Cardiothoracic Surgery - [facility] [address] [place] [address] [address] [place] [id number] Tejinder Levy MD [address] [facility] [address] [place], [place] [id number] documented as of this encounter Visit Diagnoses Not on filedocumented in this encounter Care Teams Family Engagement Specialist Relationship Specialty Start Date End Date Provider, Not In System [place] PCP - General 07/30/23 08/01/23 López Hazel MD [address] [place] [address] PCP - General Adolescent Medicine 08/02/23 Vic Kaminski MD [address] [facility] [address] [place], [place] [id number] Community Cultural Development Officer Cardiology 03/09/24 Wisam Hartmann Jr., MD [address] [facility] [address] [place] [address] Urologist Urology 03/10/24 Tejinder Levy MD [address] [facility] [address] [place] [address] Surgeon Cardiothoracic Surgery 03/14/24 documented as of this encounter
--- OUTSIDE RECORDS SUMMARY | 2025-04-24 08:04 | XMS_ITS | Encounter Summary ---
Author Organization [employer] ([place], [place], [place], [place]) Address [address] [place] [address] Care Team Providers Care Driver Guard Name Role Phone Provider, Not In System Primary Care Provider Un available López Hazel MD Primary Care Provider + [phone] Vic Kaminski MD Unavailable [phone] Mary Kate Nance MD, Wisam Viera Unavailable + [phone] Tejinder Levy MD Unavailable [phone] Encounter Details Date Type Department Care Team (Late st Contact Info) Description 10/03/2019 Transcribed Document [facility] [place] Family Medicine [address] [place] [address] ProviderElias MD [address] [place] [address] Social History Tobacco Use Types Packs/Day Years Used Date Smoking Tobacco: Never Assessed Sex and Gender Information Value Date Recorded Sex Assigned at Male 03/19/2022 5:39 PM CDT Legal Sex Male 6:52 PM CDT Gender Identity Male 03/19/2022 5:39 PM CDT Sexual Orientation Not on file documented as of this encounter Miscellaneous Notes * Cerner Conversion Note - Historical ProviderMD - 10/03/2019 5:07 AM BOTTLE FEEDER Admission History, Adult Entered On: 10/03/2019 14:56 EST Performed On: 10/03/2019 14:47 EST by Mattie Garcia RN Advance Directive Patient has Advance Directive *Q : Yes, Advance Directive not with the patient Advance Directive Type : Living will Copy Advance Directive Verified/on Chart : No Mattie Garcia RN - 10/03/2019 14:47 EST Anesthesia/Transfusion History Family History of Anesthesia Reaction : No prior transfusion(s) Blood Transfusion Acceptable to Patient : Yes Transfusion History : Prior anesthesia without reaction Family History of Anesthesia Reaction : None Mattie Garcia RN - 10/03/2019 14:47 EST Anticipated Discharge Needs Discharge To, Anticipated : Home Anticipated Discharge Needs at This Time : None Mattie Garcia RN - 10/03/2019 14:47 EST Education Topics, Admission Orientation DCP GENERIC CODE Advance Directives : Verbalizes understanding Allergy Band Applied : Verbalizes understanding Assessment/Vital Signs : Verbalizes understanding Bed Control : Verbalizes understanding Call Light : Verbalizes understanding Confidentiality : Verbalizes understanding Diet/Room Service : Verbalizes understanding Fall Prevention : Verbalizes understanding Hand Hygiene : Verbalizes understanding Healthcare Provider Visit : Verbalizes understanding ID Band Applied : Verbalizes understanding Orientation to Room/Bathroom : Verbalizes understanding Patient Bill of Rights : Verbalizes understanding Patient Rights/Responsibilities : Verbalizes understanding Patient Safety : Verbalizes understanding Personal Privacy Code : Verbalizes understanding Rapid Response Initiated by Patient/Family : Verbalizes understanding Rounding : Verbalizes understanding Siderails use/risks : Verbalizes understanding Skin Precautions : Verbalizes understanding Television/Phone : Verbalizes understanding Visiting Policy : Verbalizes understanding Mattie Garcia RN - 10/03/2019 14:47 EST Functional Assessment Living Situation : Home Patient Lives With : Spouse Persons Assisting Patient at Home : Spouse Current Daily Living Assistance : None Mobility Assistance Prior to Admission : Independent DUNBAR Hx Falls Immediate/Within 3 Months : No Current Home Treatments : None Home Equipment : None Mattie Garcia RN - 10/03/2019 14:47 EST General Info Arrived From : Other: PACU Mode of Arrival on Unit : Bed Patient Arrival Date/Time : 10/03/2019 13:55 EST Legal Guardian : Daughter, Sibling Contact Password : contreras Want Family/Rep/Phys Notified of Admit : No Emergency Contact #1 : [place] Emergency Contact #1 Emergency Contact #1 Relationship : spouse Emergency Contact #2 : [place] Emergency Contact #2 Emergency Contact #2 Relationship : daughter Information Obtained From : Patient Primary Language : Gabonese Preferred Communication Mode : Verbal Communication Barrier : None Objects to Sharing Info w Family : No Mattie Garcia RN - 10/03/2019 14:47 EST Fall Risk Scales ABCs Fall Injury Risk Identification : None DUNBAR Hx Falls Immediate/Within 3 Months : No Dunbar Secondary Diagnosis : Yes DUNBAR Use of Ambulatory Aid : Bed rest/Nurse assist DUNBAR IV Therapy or IV Access : Yes Dunbar Gait/Transferring : Normal, bedrest, immobile Dunbar Mental Status : Oriented to own ability Dunbar Fall Risk Score : 35 DUNBAR Fall Scale Risk Level : 25-45 Medium Risk [place] Fall Interventions : Adequate lighting, Bed in low position, Call device within reach, Fall prevention handout/education per facility policy, Frequent orientation to call device, Frequent orientation to surroundings, Hourly comfort/safety rounds, Non-slip footwear, Personal items within reach, Reinforced to call for assistance before getting out of bed, Room free of clutter/spills, Upper side-rails up, Wheels locked, Wires/Cords secured Barriers to Learning : None evident Learning Style Preferences Patient : Verbal explanation Mattie Garcia RN - 10/03/2019 14:47 EST Health Histories Smoking Status : Never (less than 100 in lifetime; none in last 30 days) Smokeless Tobacco Status : Never Mattie Garcia RN - 10/03/2019 14:47 EST Social History (As Of: 10/03/2019 14:56:11 EST) Tobacco: Never (less than 100 in lifetime) Smoking Status. Never Smokeless Tobacco Status. (Last Updated: 09/26/2019 08:18:58 EST by Nancy Castillo, RN) Alcohol: Alcohol Use History No. (Last Updated: 09/26/2019 08:18:58 EST by Nancy Castillo, RN) Substance Abuse: Drug Use Hx: No. (Last Updated: 09/26/2019 08:18:58 EST by Nancy Castillo, RN) Height and Weight, Clinical Dosing Height Source : Stated Height Entry Format : [place] Height, Feet : 5 ft(Converted to: 152 cm, 60 Inch) Height, Inches : 11 Inch(Converted to: 0 ft 11 Inch, 27.94 cm) Clinical Height : 180.34 cm Weight Source : Standing scale Weight Entry Format : [facility] Weight : 96.36 kg Weight, Pounds : 212 lb Body Surface Area (BSA) : 2.16 m2 Body Mass Index : 29.6 kg/m2 ([place]) [place] Body Weight : 74 kg Mattie Garcia RN - 10/03/2019 14:47 EST Infectious Disease History Physical contact outside [place] in the last 30 days : No Infectious Disease History : Chicken pox/Shingles, Influenza, Measles, Mumps, Rubella, Pertussis (Whooping cough) Isolation Needed : Standard Tuberculosis Symptoms : None Mattie Garcia RN - 10/03/2019 14:47 EST Tetanus Immunization Status Previous Tetanus Immunizations : No qualifying data available. Tetanus Immunization : Less than 5 years Mattie Garcia RN - 10/03/2019 14:47 EST Influenza Vaccine Asmt, Adult Previous Vaccines from Immunization Schedule : No qualifying data available. Influenza Immunization, Current Season : Yes Mattie Garcia RN - 10/03/2019 14:47 EST Pneumococcal Vaccine Previous Vaccines from Immunization Schedule : No qualifying data available. Pneumonia Immunization Received : Yes Mattie Garcia RN - 10/03/2019 14:47 EST Order Details Transport Mode Order Detail : Wheelchair Isolation Precautions Order Detail : Standard Precautions Order Detail : N/A IV Order Detail : 0 Oxygen Order Detail : 0 Nurse Collect Order Detail : 0 Lift/Transfer : Independent Central Line Order Detail : No Room Service : Appropriate Arterial Line : No Mattie aGrcia RN - 10/03/2019 14:47 EST Nutrition History Feeding Ability : Independent Adaptive Feeding Equipment : Regular Eating Poorly Due to Decreased Appetite : No Unplanned Weight Loss in Past 3-6 Months : No Malnutrition Screening Tool Total(mal) : 0 Malnutrition Screening Tool Risk Level : Patient not at risk Mattie Garcia RN - 10/03/2019 14:47 EST Orr Suicide Severity Rating Scale (C-SSRS) CSSRS Past Month Wish to be : No CSSRS Past Month Suicidal Thoughts : No CSSRS Lifetime Suicide Behavior : No Suicide Severity Rating Score : 0 Suicide Severity Rating : No Additional Care Required at this time Mattie Garcia RN - 10/03/2019 14:47 EST Psychosocial History Do You Have a History of the Following? : Patient denies history Currently in Unsafe Situation : No Mattie Garcia RN - 10/03/2019 14:47 EST Sleep Apnea Risk Assmt Hx of [...] Sleep Apnea Risk Level Score : 4 Mattie Garcia RN - 10/03/2019 14:47 EST Valuables and Belongings Valuables and Belongings : Clothing, Personal devices Clothing : Common streetwear Clothing Disposition : With family Personal Device Disposition : With patient Personal Devices : Dentures, upper, Dentures, lower, Glasses Mattie Garcia RN - 10/03/2019 14:47 EST Electronically signed by Mindi [facility] Conversion Green Building Energy Engineer Cerner at 01/06/2023 11:25 AM CDT documented in this encounter Plan of Treatment Upcoming Encounters Date Type Department Care Team (Late st Contact Info) Description 04/16/2026 9:00 AM EDT Office Visit [facility] Cardiothoracic Surgery - [facility] [address] [place] [address] [address] [place] [id number] [place] [address] [place] [address] [address] [place] [address] documented as of this encounter Visit Diagnoses Not on filedocumented in this encounter Care Teams Driver Guard Relationship Specialty Start Date End Date Provider, Not In System [place] PCP - General 07/30/23 08/01/23 López Hazel MD [address] [place] [address] PCP - General Adolescent Medicine 08/02/23 Vic Kaminski MD [address] [place], [place] [id number] Personal Shopper Cardiology 03/09/24 Wisam Hartmann Jr., MD [address] [facility] [address] [place] [address] Urologist Urology 03/10/24 Tejinder Levy MD [address] [place] [address] Surgeon Cardiothoracic Surgery 03/14/24 documented as of this encounter
--- OUTSIDE RECORDS SUMMARY | 2025-04-24 08:04 | XMS_ITS | Encounter Summary ---
Author Organization [employer] ([place], [place], [place], [place]) Address [address] [place] [address] Care Team Providers Care Caser [employer]oe [employer] Name Role Phone Provider, Not In System Primary Care Provider Un available López Hazel MD Primary Care Provider + [phone] Vic Kaminski MD Unavailable [phone] Mary Kate Nance MD, Wisam Viera Unavailable + [phone] Tejinder Levy MD Unavailable [phone] Encounter Details Date Type Department Care Team (Late st Contact Info) Description 10/03/2019 Transcribed Document [facility] [place] [address] ProviderElias MD [address] [place] [address] Social History Tobacco Use Types Packs/Day Years Used Date Smoking Tobacco: Never Assessed Sex and Gender Information Value Date Recorded Sex Assigned at Male 03/19/2022 5:39 PM CDT Legal Sex Male 6:52 PM CDT Gender Identity Male 03/19/2022 5:39 PM CDT Sexual Orientation Not on file documented as of this encounter Miscellaneous Notes * Cerner Conversion Note - Historical ProviderMD - 10/03/2019 5:00 PM PATIENT CARRIER Chart Check - Review Order Profile Entered On: 10/03/2019 20:36 EST Performed On: 10/03/2019 17:00 EST by Mattie Garcia, RN Chart Check Powerplans Initiated/Discontinued as Appropriate : Yes All Active Orders Reviewed : Yes Mattie Garcia, RN - 10/03/2019 20:36 EST documented in this encounter Plan of Treatment Upcoming Encounters Date Type Department Care Team (Late st Contact Info) Description 04/16/2026 9:00 AM EDT Office Visit [facility] Cardiothoracic Surgery - [facility] [address] [facility] [address] [place] [phone] [place] [address] [place] [address] [address] [place] [address] documented as of this encounter Visit Diagnoses Not on filedocumented in this encounter Care Teams [employer] Relationship Specialty Start Date End Date Provider, Not In System [place] PCP - General 07/30/23 08/01/23 López Hazel MD [address] [place] [address] PCP - General Adolescent Medicine 08/02/23 Vic Kaminski MD [address] [facility] [address] [place], [place] [id number] Media Buyer Cardiology 03/09/24 [place] [address] [place] [address] [address] [place] [address] Urologist Urology 03/10/24 [place] [address] [place] [address] [address] [place], [place] [id number] Surgeon Cardiothoracic Surgery 03/14/24 documented as of this encounter
--- OUTSIDE RECORDS SUMMARY | 2025-04-24 08:05 | XMS_ITS | Encounter Summary ---
Author Organization [employer] ([place], [place], [place], [place]) Address [address] [place] [address] Care Team Providers Care Weaving Supervisor Name Role Phone Provider, Not In System Primary Care Provider Un available López Hazel MD Primary Care Provider + [phone] Vic Kaminski MD Unavailable [phone] Mary Kate Nance MD, Thomas K Unavailable + [phone] Tejinder Levy MD Unavailable [phone] Encounter Details Date Type Department Care Team (Late st Contact Info) Description 10/03/2019 Transcribed Document [facility] [place] [address] [place] [address] ProviderElias MD [address] [place] [address] Social History Tobacco Use Types Packs/Day Years Used Date Smoking Tobacco: Never Assessed Sex and Gender Information Value Date Recorded Sex Assigned at Male 03/19/2022 5:39 PM CDT Legal Sex Male 6:52 PM CDT Gender Identity Male 03/19/2022 5:39 PM CDT Sexual Orientation Not on file documented as of this encounter Miscellaneous Notes * Cerner Conversion Note - Elias Irvin MD - 10/03/2019 10:53 AM STRAPPER AND BUFFER DATE OF PROCEDURE: 10/03/2019 SURGEON: Wisam Hartmann Jr, MD PREOPERATIVE DIAGNOSIS: Localized prostate cancer. POSTOPERATIVE DIAGNOSIS: Localized prostate cancer. PROCEDURE: Robotic-assisted laparoscopic radical prostatectomy with nerve sparing. ANESTHESIA: General. COMPLICATIONS: None. BLOOD LOSS: Less than 100 mL. CONDITION: Patient was taken to the recovery room in stable condition. DRAINS: Garcia catheter and RAS drain. HISTORY: This is a 68-year-old gentleman with localized prostate cancer. He has opted for surgical therapy. After understanding the treatment options for localized prostate cancer. He gives his full consent for robotic-assisted laparoscopic radical prostatectomy with lymphadenectomy. OPERATIVE REPORT: After consent was obtained, the patient was taken to the operative suite, where he was placed in a supine position where anesthesia was induced without difficulty. Patient was placed in dorsal lithotomy position padding all pressure points. He was sterilely prepped and draped in normal fashion. Veress needle technique was used to create pneumoperitoneum at the umbilicus. An 8 mm blunt Visiport was then used to create a camera trocar site also at the umbilicus. Under direct vision, the remainder of the robotic and product safety technical assistant trocars were placed. The robot was docked. After the patient was placed in steep Trendelenburg position, we entered the space of Retzius and dissected the bladder posteriorly. Endopelvic fascia was identified and opened bilaterally with division of the puboprostatic ligament. The anterior bladder neck was then identified. We opened the anterior bladder and dissected the posterior bladder. Under direct vision, seminal vesicles and vas deferens were then . Please note that a ligature of 0 Vicryl suture had been used to control our dorsal venous complex. Once we had divided our posterior bladder neck, then seminal vesicles were dissected out in their entirety using the thermal energy. We opened the Denonvilliers fascia and dissected the space posterior to the prostate into the rectum up to the level of the apex of the prostate. Prostatic pedicles were then isolated and taken down using the vessel sealer device. We lifted the veil of Aphrodite on each side and teased our neurovascular bundles away from the posterolateral aspects of the prostate using a thermic technique from base of the prostate to the apex of the prostate bilaterally. Nerve-sparing technique was enhanced using amniotic tissue. At this point, the anterior dissection was performed by dividing the dorsal venous complex. An apical dissection was performed leaving a nice stump of urethra for anastomosis. Urethra was divided and the specimen was placed in the specimen sac. At this point, bilateral obturator lymph node dissection was carried out using our vessel sealer device for lymph node hemostasis. The bladder neck was then tailored posteriorly in a tennis racquet fashion using 2-0 Monocryl. We performed a vesicourethral anastomosis using a running Monocryl suture, which was watertight. The drain was brought in through #4 robotic trocar site. The robot was undocked, and under laparoscopic guidance, we removed all of our trocars. The fascial defect at the umbilicus was enlarged and we delivered our specimen within the specimen sac. This fascial defect was closed using a PDS suture. All incisions were irrigated. Subcutaneous tissues were brought together using 3-0 Vicryl. Skin was brought together using Dermabond. RAS drain and Garcia catheter were secured in place. Anesthesia was reversed and patient was taken to recovery room in stable condition. /[id number] Wisam Hartmann Jr, MD TS/AQ / TS / MODL /[id number] documented in this encounter Plan of Treatment Upcoming Encounters Date Type Department Care Team (Late st Contact Info) Description 04/16/2026 9:00 AM EDT Office Visit [facility] Cardiothoracic Surgery - [address] [place] [phone] Tejinder Levy MD [address] [facility] [address] [place] [address] documented as of this encounter Visit Diagnoses Not on filedocumented in this encounter Care Teams Weaving Supervisor Relationship Specialty Start Date End Date Provider, Not In System [place] PCP - General 07/30/23 08/01/23 López Hazel MD [address] [place] [address] [place] [address] PCP - General Adolescent Medicine 08/02/23 Vic Kaminski MD [address] [facility] [address] [place] [address] Customer Solutions Teammate Cardiology 03/09/24 Wisam Hartmann Jr., MD [address] [facility] [address] [place] [address] Urologist Urology 03/10/24 Tejinder Levy MD [address] [facility] [address] [place] [address] Surgeon Cardiothoracic Surgery 03/14/24 documented as of this encounter
--- OUTSIDE RECORDS SUMMARY | 2025-04-24 08:05 | XMS_ITS | Encounter Summary ---
Author Organization [employer] ([place], [place], [place], [place]) Address [address] [place] [address] Care Team Providers Care Service Technician Name Role Phone Provider, Not In System Primary Care Provider Un available López Hazel MD Primary Care Provider + [phone] Vic Kaminski MD Unavailable [phone] Mary Kate Nance MD, Tamia K Unavailable + [phone] Tejinder Levy MD Unavailable +[phone] Encounter Details Date Type Department Care Team (Late st Contact Info) Description 10/03/2019 Transcribed Document [facility] [place] Family Medicine [address] [place] [address] ProviderElias MD [address] [place] [id number] Social History Tobacco Use Types Packs/Day [...] - Historical ProviderMD - 10/03/2019 9:42 AM PLASTICS FITTER [facility] Main OR IntraOp Summary Primary Physician: TAMIA HERNANDEZ JR, MD-URO Finalized Date/Time: 10/03/19 10:55:50 Pt. Name: JAMES GUZMAN /Sex: 1950 Male [facility] Rec #: [id number] Physician: TAMIA HERNANDEZ JR, MD-URO Financial #: [id number] Pt. Type: I Room/Bed: Admit/Disch: 10/03/19 05:08:00 - Institution: [facility] [place] IntraOp Case Attendance Entry 1 Entry 2 Entry 3 Case Attendee TAMIA HERNANDEZ JR, SKEENS, STEPHEN J, BUILDER'S LABOURER Samantha Temple, Reyes GARCIA-URO Role Performed Surgeon/Proceduralist, BUILDER'S LABOURER/Nurse Rotary Rig Engine Operator Wafer Fabrication Technician, First First Time In 10/03/19 09:29:00 10/03/19 09:29:00 10/03/19 09:29:00 Time Out 10/03/19 10:52:00 10/03/19 10:52:00 10/03/19 10:52:00 Procedure Prostatectomy Radical Prostatectomy Radical Prostatectomy Radical Robotic Robotic Robotic Other Attendee Superficial Wound Closed By: Last Modified By: Samantha Temple, Samantha Dejesus, Samantha Dejesus Rn 10/03/19 10:55:44 10/03/19 10:55:44 10/03/19 10:55:44 Entry 4 Entry 5 Entry 6 Case Attendee Len Mejia, Vannesa Kate, [facility], Rachael, Cleaner Greaser Cleaner Greaser Role Performed Wafer Fabrication Technician, Second Scrub, First Scrub, Second Time In 10/03/19 09:29:00 10/03/19 09:29:00 10/03/19 09:29:00 Time Out 10/03/19 10:52:00 10/03/19 10:52:00 10/03/19 10:52:00 Procedure Prostatectomy Radical Prostatectomy Radical Prostatectomy Radical Robotic Robotic Robotic Other Attendee Superficial Wound Closed By: Last Modified By: Samantha Temple, Samantha Dejesus, Samantha Dejesus, Reyes 10/03/19 10:55:44 10/03/19 10:55:44 10/03/19 10:55:44 Entry 7 Entry 8 Case Attendee NATALYAANABELLA PALMER PA-C Adkins, Ashley, -DEANNA Role Performed Physician assistant property manager, Ancillary Time In 10/03/19 09:29:00 10/03/19 09:29:00 Time Out 10/03/19 10:52:00 10/03/19 10:52:00 Procedure Prostatectomy Radical Prostatectomy Radical Robotic Robotic Other Attendee Superficial Wound Closed By: Last Modified By: Samantha Temple, Rn Samantha Temple, Reyes 10/03/19 10:55:44 10/03/19 10:55:44 [facility] IntraOp Case Attendance Audit 10/03/19 10:55:44 Store Receiver: [id number] Modifier: [id number] <+> Time Out 1 <*> Procedure Prostatectomy Radical Robotic 2 <+> Time Out 2 <*> Procedure Prostatectomy Radical Robotic 3 <+> Time Out 3 <*> Procedure Prostatectomy Radical Robotic 4 <+> Time Out 4 <*> Procedure Prostatectomy Radical Robotic 5 <+> Time Out 5 <*> Procedure Prostatectomy Radical Robotic 6 <+> Time Out 6 <*> Procedure Prostatectomy Radical Robotic 7 <+> Time Out 7 <*> Procedure Prostatectomy Radical Robotic 8 <+> Time Out 8 <*> Procedure Prostatectomy Radical Robotic 10/03/19 09:42:46 Store Receiver: [id number] Modifier: [id number] <+> Time In 1 <*> Procedure Prostatectomy Radical Robotic 2 <+> Time In 2 <*> Procedure Prostatectomy Radical Robotic 3 <+> Time In 3 <*> Procedure Prostatectomy Radical Robotic 4 <+> Time In 4 <*> Procedure Prostatectomy Radical Robotic 5 <+> Time In 5 <*> Procedure Prostatectomy Radical Robotic 6 <+> Time In 6 <*> Procedure Prostatectomy Radical Robotic 7 <+> Time In 7 <*> Procedure Prostatectomy Radical Robotic 8 <+> Time In 8 <*> Procedure Prostatectomy Radical Robotic 10/03/19 09:23:42 Store Receiver: [id number] Modifier: [id number] <+> 1 Procedure 2 <*> Procedure Prostatectomy Radical Robotic 3 <*> Procedure Prostatectomy Radical Robotic 4 <*> Procedure Prostatectomy Radical Robotic 5 <*> Procedure Prostatectomy Radical Robotic 6 <*> Procedure Prostatectomy Radical Robotic 7 <*> Procedure Prostatectomy Radical Robotic 8 <*> Procedure Prostatectomy Radical Robotic [facility] IntraOp Case Times Entry 1 Patient In Room Time 10/03/19 09:29:00 Out Room Time 10/03/19 10:52:00 Anesthesia Start Time 10/03/19 09:29:00 Stop Time 10/03/19 10:52:00 Anesthesia Ready 10/03/19 09:29:00 Surgery / Procedure Times Start Time 10/03/19 09:42:00 Stop Time 10/03/19 10:48:00 Last Modified By: Samantha Temple Rn 10/03/19 09:42:43 [facility] IntraOp Case Times Audit 10/03/19 10:55:14 Store Receiver: [id number] Modifier: [id number] <+> 1 Out Room Time <+> 1 Stop Time <+> 1 Stop Time [facility] IntraOp Cautery Entry 1 ESU Identification Cautery Type Monopolar ESU ID Number ERBE ID Type Hospital Number Cautery Settings Cut Setting 3 Coag Setting 3 Bipolar Setting 3 ESU Grounding Pad Ground Pad Type Adult Grounding Pad Site Left thigh Grounding Pad Samantha Temple Rn Applied By Grounding Pad Site Intact Skin Condition Before Cautery Grounding Pad Site Intact Skin Condition After Cautery Last Modified By: Samantha Temple Rn 10/03/19 09:20:19 [facility] IntraOp Communication Entry 1 Communication To Family/Significant other Comment PROCEDURE START Communication By Len Mejia RN Date and Time 10/03/19 09:43:00 Last Modified By: Samantha Temple Rn 10/03/19 09:43:21 [facility] IntraOp Counts Verification Entry 1 Procedure Prostatectomy Radical Robotic Count Info Count Type Sponge, Sharps, Miscellaneous Counts Verification Baseline/pre-procedure Sequence Count Results Not Applicable Counts Performed By Count Performed By Ramos December, (Scrub) Cleaner Greaser Count Performed By Len Mejia RN (RN) Last Modified By: Samantha Temple Rn 10/03/19 09:20:37 [facility] IntraOp Counts Final Entry 1 Procedure Prostatectomy Radical Robotic Final Count Info Count Type Sponge, Sharps, Miscellaneous Counts Verification Skin Closure/end of Sequence procedure Count Results Correct, surgeon notified Counts Performed By Count Performed By Ramos December, (Scrub) Cleaner Greaser Count Performed By Len Mejia RN (RN) Last Modified By: Samantha Temple Rn 10/03/19 10:40:14 [facility] IntraOp Cultures and Spec Summary Entry 1 Cultrures and Specimens Specimen Ordered: Yes Test(s) Routine/Path-Lab Requested/Final Disposition Last Modified By: Samantha Temple Rn 10/03/19 09:20:39 [facility] IntraOp Departure from OR Entry 1 Integumentary Assessment Integumentary WDL Assessment WDL Transfer/Handoff Transfer to PACU Phase I Handoff Method Bedside/Face to face Post-op Transport Bed (including Via specialty) Patient Transport LÓPEZ PICKETT, Accompanied by Maverick MCKENNA Kristi, Rn, Len Mejia RN Last Modified By: Samantha Temple Rn 10/03/19 09:20:49 [facility] IntraOp Drains and Tubes Entry 1 Device Type Eddie Adorno flat drain Size 10 Drain/Tube Activity Inserted Drain/Tube Suction Bulb Last Modified By: Samantha Temple Rn 10/03/19 09:20:56 [facility] IntraOp Dressing and Packing Entry 1 Type Dressing Location abdomen Wound Dressing Item 2x2's, Skin adhesive, Steristrip Applied By ANABELLA HOANG PA-C Last Modified By: Samantha Temple Rn 10/03/19 09:21:05 [facility] IntraOp Fire Risk Assessment Entry 1 Fire Info Surgical Site or 0- No Incision Above the Xyphoid Open O2 Source 0- No (Mask or Cannula) Available Ignition 1- Yes (ESU, Laser, Light Source) Fire Risk 1 Assessment Score Fire Score Fire Risk Yes Assessment Complete Fire Risk Samantha Temple Rn Assessment Verified By Fire Risk 10/03/19 09:21:00 Assessment Verified Date/Time Fire Risk Standard Fire Yes Safety Precautions Followed Last Modified By: Samantha Temple Rn 10/03/19 09:21:10 [facility] IntraOp General Case Chair Inspector And Leveler 1 Case Information OR OR 07 [facility] Case Level 1 Room Verified Yes Wound Class II - Clean-Contaminated Specialty SN Urology Anesthesia Type General ASA Class 3 Diagnosis Preop Diagnosis PROSTATIC CANCER Postop Same As Preop No Postop Diagnosis DICTATED BY Last Modified By: Samantha Temple Rn 10/03/19 09:21:33 [facility] IntraOp Implant Log Entry 1 Type Tissue Implant (Biologic) Implant Log Tissue Implant Type Tissue Implant [facility] [id number] Identification Description Implant Quantity 1 Implant Site PROSTATE Implant [employer] Identification Shipping Weigher Name: Implant [id number] Identification Catalog Number Implant Has an Yes Expiration Date Implant Expiration 05/21/24 Date Tissue Implant Tissue [id number] Identification Number Last Modified By: Samantha Temple Rn 10/03/19 09:59:30 [facility] IntraOp Intraoperative Assessment Entry 1 Handoff Method Bedside/Face to face Valid History / Yes Physical in Chart Preoperative Yes Checklist Reviewed/Evaluated Allergies Reviewed Yes Patient is Latex No Sensitive Isolation Not applicable Precautions Noted Level of WDL Consciousness (WDL = Alert, Oriented to Person, Place, and Time) Skin Assessment Yes Verified Present Upon IVs Arrival to OR Last Modified By: Samantha Temple Rn 10/03/19 09:21:44 [facility] IntraOp Intraoperative Equipment Entry 1 Type Equipment Equipment Equipment Robot Intraop Monitoring Electrocardiogram Three lead placement (ECG) Electrode Placement Blood Pressure Non-Invasive BP Device Source Antiembolic Devices Antiembolic Devices Sequential compression device, knee high Antiembolic Device Bilateral Location Scopes Photo/Video Documentation Intraop Equipment SCD'S ON AND Comment OPERATIONAL BEFORE PATIENT ASLEEP Last Modified By: Samantha Temple Rn 10/03/19 09:22:16 [facility] IntraOp Medication Admin Entry 1 Medication/Irrigant lidocaine 2% urojet 10ml jelly - [id number] Route of TO STERILE FIELD FOR Administration USE BY Dose Dose 10 Unit of Measure ml Administered By TAMIA HERNANDEZ JR, MD-URO Procedure Irrigation Last Modified By: Samantha Temple Rn 10/03/19 09:22:48 [facility] IntraOp Patient Positioning Entry 1 Procedure Prostatectomy Radical Robotic Body Position Lithotomy Left Arm Position Tucked and padded at side Right Arm Position Tucked and padded at side Left Leg Position Secured in Leg Schuster Right Leg Position Secured in Leg Schuster Feet Uncrossed Yes Pressure Points Yes Checked Positioning Devices Camilo Bag, Stirrups/Leg Schuster, Boot Positioned By LÓPEZ PICKETT CRNA, Samantha Temple Rn, TAMIA HERNANDEZ JR, MD-URO Position Verified Positioning Yes Verified by Anesthesia Positioning Yes Verified by Surgeon Last Modified By: Samantha Temple Rn 10/03/19 09:23:05 [facility] IntraOp Sign In Entry 1 Patient, Site, Yes Procedure Identified Surgical Consent Yes Confirmed Relevant Surgical Yes Documents Available Surgical Site N/A Marked by person performing procedure Anesthesia Machine Yes Check Completed Medication Checks Yes Completed Allergies Yes Airway Difficult No Airway/Aspiration Risk Difficult Yes Airway/Aspiration Intervention Equipment Available Blood Loss Risk Yes Blood Loss Yes Intervention Equipment Prepared and Ready Hypothermia Risk Yes Warming Measures Yes Taken Last Modified By: Samantha Temple Rn 10/03/19 09:23:10 [facility] Intra Op Sign Out Entry 1 RN Confirmation Surgical Yes Procedure(s) Identified Instrument, Sponge Yes and Sharps Counts Correct/Documented Equipment Problems N/A Documented Specimen Labeled Yes Correctly Urinary Catheter Yes Documented in IView Caruso Patient Yes Recovery Concerns Reviewed with Anesthesia Provider, Surgeon and RN Caruso Patient Yes Management Concerns Reviewed with Anesthesia Provider, Surgeon and RN Safety Checklist Yes Elements Complete? RN Sign Out Samantha Temple Rn Signature RN Sign Out 10/03/19 10:52:00 Signature Date/Time Plan of Care Outcome - Fire Risk OUTCOME STATEMENT: Goal met Patient is free from injury related to surgical fire Plan of Care Outcome - Pt Positioning OUTCOME STATEMENT: Goal met Absence of signs and symptoms of positioning injury. Plan of Care Outcome - Skin Prep OUTCOME STATEMENT: Goal met Intraoperative care is consistent with measures to prevent infection Plan of Care Outcome - Xray/Images OUTCOME STATEMENT: N/A Absence of observable signs or symptoms of radiation injury Plan of Care Outcome - Counts OUTCOME STATEMENT: Goal met Absence of signs and symptoms of injury related to extraneous objects Last Modified By: Samantha Temple Rn 10/03/19 09:23:16 [facility] Intra Op Sign Out Audit 10/03/19 10:55:42 Store Receiver: [id number] Modifier: [id number] <+> 1 RN Sign Out Signature Date/Time [facility] IntraOp Skin Prep Entry 1 Procedure Prostatectomy Radical Robotic Prescribed Yes Pre-Surgical Prep Completed Prep Area abdomen, penis Intraop Prep Integumentary WDL Assessment WDL Prep Agents Betadine solution, Chloraprep Prep by Samantha Temple Rn Hair Removal Methods Clipper/Scissors Hair Removal Site LEFT THIGH Hair Removal By Samantha Temple Rn Last Modified By: Samantha Temple Rn 10/03/19 09:23:40 [facility] IntraOp Surgical Procedures Entry 1 Procedure Prostatectomy Radical Robotic Additional ROBOTIC PROSTATECTOMY Procedure WITH NODES Description Primary Procedure Yes Primary Surgeon TAMIA HERNANDEZ JR, MD-URO Start 10/03/19 09:42:00 Stop 10/03/19 10:48:00 Anesthesia Type General Specialty SN Urology Wound Class II - Clean-Contaminated Last Modified By: Samantha Temple Rn 10/03/19 09:23:41 [facility] IntraOp Surgical Procedures Audit 10/03/19 10:55:47 Store Receiver: [id number] Modifier: [id number] <+> 1 Start <+> 1 Stop [facility] IntraOp Time Out Entry 1 Procedure to be Prostatectomy Radical Performed Robotic Time Out Time Out Pause Time 10/03/19 09:41:00 All activity Yes suspended (unless life threatening emergency) Team Verbally Correct patient Confirms Information identity, Correct side and site are marked, Consent form is present and accurate, Agreement on the procedure to be done, Correct patient position, Relevant images/results properly labeled/appropriately displayed, Confirm antibiotics have been administered, Confirm the skin prep has dried, Confirm prosthesis/implant/devic e is present, Performed in location of procedure after prepped/draped Antibiotic Yes Prophylaxis Administered Or In Progress Within the Last 60 Minutes Beta Hemanth Yes Administered Venous Yes Thromboembolism Prophylaxis Required Anticipated Critical Events Surgeon None expected Anesthesia Provider None expected Nursing Assures Sterility of instruments Essential Imaging N/A Labeled and Displayed Last Modified By: Samantha Temple Rn 10/03/19 09:49:44 Case Comments <None> Finalized By: Samantha Temple, Rn Document Signatures Signed By: Samantha Temple Rn 10/03/19 10:55 Electronically signed by [employer] [facility] Conversion Television Repairman Cerner at 01/06/2023 11:48 AM CDT documented in this encounter Plan of Treatment Upcoming Encounters Date Type Department Care Team (Late st Contact Info) Description 04/16/2026 9:00 AM EDT Office Visit [facility] Cardiothoracic Surgery - [facility] [address] [place] [address] [address] [place] [address] Tejinder Levy MD [address] [facility] [address] [place] [address] documented as of this encounter Visit Diagnoses Not on filedocumented in this encounter Care Teams Service Technician Relationship Specialty Start Date End Date Provider, Not In System [place] PCP - General 07/30/23 08/01/23 López Hazel MD [address] [place] [address] [place] [address] PCP - General Adolescent Medicine 08/02/23 Vic Kaminski MD [address] [facility] [address] [place], [place] [id number] Welding Lead Burner Cardiology 03/09/24 Tamia Hernandez Jr., MD [address] [facility] [address] [place], [place] [id number] Urologist Urology 03/10/24 Tejinder Levy MD [address] [facility] [address] [place], [place] [id number] Surgeon Cardiothoracic Surgery 03/14/24 documented as of this encounter
[2025-04-24 08:34] LABS: Hematocrit 40.3 % (42.0-52.0); Hemoglobin 14.2 g/dL (14.1-18.0); Immature Granulocytes % 0.1 %; Mean Corpuscular HGB Conc 35.2 g/dL (31.8-35.4); Mean Corpuscular Hemoglobin 31.6 pg (27.0-31.2); Mean Corpuscular Volume 89.6 fl (80-94); Nucleated Red Blood Cells % 0 %; Platelet Count 229 K/mm3 (142-424); Red Blood Count 4.50 M/mm3 (4.60-6.20); Red Cell Distribution Width-SD 41.6 fL; White Blood Count 7.4 K/mm3 (4.8-10.8)
[2025-04-24 10:29] LABS: Alanine Aminotransferase 19 U/L (12-78); Albumin Level 4.5 g/dl (3.5-5.0); Albumin/Globulin Ratio 1.7 (1.1-1.8); Alkaline Phosphatase 77 U/L (38-126); Anion Gap 10.0 mEq/L (5-15); Aspartate Amino Transferase 25 U/L (17-59); Bilirubin,Total 0.5 mg/dl (0.2-1.3); Blood Urea Nitrogen 13 mg/dl (9-20); Calcium 9.5 mg/dl (8.4-10.2); Carbon Dioxide 26 mmol/L (22.0-30.0); Chloride 106 mmol/L (98-107); Cholesterol 96 mg/dl (140-200); Creatinine,Serum 0.70 mg/dl (0.66-1.25); Estimated Glomerular Filt Rate 110 ml/min (>60); GFR (African American) 133 ML/MIN (>60); Globulin 2.6 g/dL (1.3-3.2); Glucose 108 mg/dl (74-100); HDL Cholesterol 34 mg/dl (40-60); Potassium 4.0 mmoL/L (3.5-5.1); Sodium 138 mmol/L (136-145); Total Protein,Serum 7.1 g/dl (6.3-8.2); Triglycerides 139 mg/dl (30-150)
== END 2025-04-24 23:59 | disposition home or self-care (01) ==
LOC: LAB 08:01
PROVIDERS: PCP Internal Medicine Adolescent Medicine; Visit Provider Internal Medicine Interventional Cardiology
DX: I10 Essential (primary) hypertension (principal); I25.118 Atherosclerotic heart disease of native coronary artery with other forms of angina pectoris; I71.21 Aneurysm of the ascending aorta, without rupture; E78.5 Hyperlipidemia, unspecified
CPT/HCPCS: 36415; 80053; 80061; 85025